=== PATIENT | female | born 1930 | race Caucasian/White ===

== ENCOUNTER 2017-11-02 10:49 | Observation (INO) ==
[2017-11-02] MEDS ORDERED: SALINE FLUSH 10ml SYRINGE IVF PRN (11:04)
--- NOTE | 2017-11-02 11:10 | Emergency Department Report ---
Nausea/Vomiting/Diarrhea HPI - General Chief complaint: Nausea/Vomiting/Diarrhea Stated complaint: v/d lethargic Source: patient Limitations: no limitations - History of Present Illness HPI Narrative: Pt presents with vomiting and diarrhea for about 4 days. Pt is a poor historian who is unable to report any fevers or true complaints or timeline. She denies any abd pain. Her only true complaint is difficulty making it to the restroom and being "tired". Onset (ago): day(s) Associated Abdominal Pain: No - Related Data Home Medications Medication Instructions Recorded Confirmed Benazepril [Lotensin] 40 mg PO DAILY #0 07/13/09 11/02/17 Cymbalta (duloxetine) 60 mg 60 mg PO DAILY 09/29/17 11/02/17 capsule,delayed release magnesium oxide 400 mg tablet 800 mg PO DAILY tab 09/29/17 11/02/17 Acetaminophen [Tylenol] 650 mg PO Q6H PRN 11/02/17 11/02/17 Amlodipine [Norvasc] 10 mg PO DAILY 11/02/17 11/02/17 Ascorbic Acid [Vitamin C] 500 mg PO DAILY 11/02/17 11/02/17 Atorvastatin [Lipitor] 20 mg PO DAILY 11/02/17 11/02/17 Docusate Sodium [Colace] 1 cap PO DAILY PRN 11/02/17 11/02/17 Ferrous Sulfate 325 mg PO DAILY 11/02/17 11/02/17 Gabapentin 300 mg PO QID 11/02/17 11/02/17 Guaifenesin/Dextromethorphan 10 ml PO Q4H PRN 11/02/17 11/02/17 [Guaifenesin Dm Syrup] Hydrocodone/APAP 7.5/325 [[place] 0.5 tab PO 5XD 11/02/17 11/02/17 7.5/325] Hydrocodone/APAP 7.5/325 [[place] 1 tab PO Q6H PRN 11/02/17 11/02/17 7.5/325] Loratadine [Claritin] 10 mg PO DAILY 11/02/17 11/02/17 Potassium Chloride 20 meq PO DAILY 11/02/17 11/02/17 PrednisoLONE EYE DROPS [Pred Mild] 1 drop RIGHT EYE DAILY 11/02/17 11/02/17 Ropinirole [Requip] 0.5 mg PO BID 11/02/17 11/02/17 Allergies Allergy/AdvReac Type Severity Reaction Status Date / Time meperidine Allergy Intermediate HIVES Verified 11/02/17 11:02 Penicillins Allergy Intermediate HIVES Verified 11/02/17 11:02 tetracycline AdvReac Mild STOMACH Verified 11/02/17 11:02 Review of Systems All systems: reviewed and negative except as stated Constitutional: Reports: as per HPI Gastrointestinal: Reports: as per HPI Neurological: Reports: as per HPI PFS Patient Stated Medical History Hypertension Yes Diabetes Mellitus Type 2 Yes Gastrointestinal Bleeding Yes Other GI INGUINAL HERNIA REPAIR Hx Incontinence Yes: DRIBBLING Anemia Yes Osteoarthritis Yes: COMPRESSION FXS Other Musculoskeletal Yes: KYPHOSIS Cellulitis Yes Sepsis Yes Other Infectious Yes: WOUND INFECTION Chemotherapy Yes: UNTIL 1984 Clinic Medical History (Last Updated 10/01/17 @ 12:03 by Sarah Troy APRN) Adenomatous colon polyp (Acute Medical) Diabetes type 2, controlled (Acute Medical) HTN (hypertension) (Acute Medical) History of colon cancer (Acute Medical) Iron deficiency anemia (Acute Medical) Lumbar spondylosis (Acute Medical) Major depressive disorder (Acute Medical) Nodular lymphoma (Acute Medical) Restless leg syndrome (Acute Medical) Surgical History: -left hemicolectomy 2013. -ventral/incisional hernia repair with mesh. Vag Hyst 1969 Family History: Family History (Last Updated 10/01/17 @ 11:57 by Sarah Troy APRN) Mother Parkinson's disease Father Stroke Brother Diabetes Stroke - Social History Smoking status: Never smoker Substance use type: does not use Physical Exam - Limitations Limitations: no limitations - General General appearance: alert, in no apparent distress - Normal Exams: Head:: Normocephalic without trauma Chest/Respirations:: Clear all [place], with good airflow, and symmetry bilaterally Cardiovascular:: Regular rate and rhythm, without murmur or gallop, Pulses 2+ all extremities, capillary refill, <2 seconds all extremities Musculoskeletal:: No tenderness, or deformity noted, good range of motion, all extremities Integumentary:: No rashes Neurological:: Patient is alert, and oriented, cranial nerves, motor/sensory/ cerebellar, exams w/o gross deficits, to observation Psychiatric:: Patient exhibits, appropriate attention, emotion and affect - Abdominal Exam Abdominal exam: Present: soft, hyperactive bowel sounds. Absent: distention, tenderness Nausea/Vomiting/Diarrhea - [facility] Narrative Medical decision making narrative: Labs and CT results reviewed. CT indicates severe enteritis and possible return of neoplasm. In conjunction with lab abnormalities will admit pt to hospitalist. - Differential Diagnosis Likely: traveler's diarrhea, gastroenteritis, clostridium difficile infection, dehydration - Lab Data Attestation: I reviewed the patient's lab results. Result diagrams: 11/02/17 11:17 11/02/17 11:17 - Radiology Data Attestation: I reviewed the patient's radiology results. Disposition Clinical Impression: Enteritis Disposition: 02 To [facility] Condition: Improved Prescriptions: No Action Ropinirole [Requip] 0.5 mg PO BID Hydrocodone/APAP 7.5/325 [[place] 7.5/325] 0.5 tab PO 5XD Amlodipine [Norvasc] 10 mg PO DAILY Ferrous Sulfate 325 mg PO DAILY Potassium Chloride 20 meq PO DAILY Ascorbic Acid [Vitamin C] 500 mg PO DAILY Loratadine [Claritin] 10 mg PO DAILY Docusate Sodium [Colace] 1 cap PO DAILY PRN PRN Reason: Constipation Hydrocodone/APAP 7.5/325 [[place] 7.5/325] 1 tab PO Q6H PRN PRN Reason: Pain Atorvastatin [Lipitor] 20 mg PO DAILY PrednisoLONE EYE DROPS [Pred Mild] 1 drop RIGHT EYE DAILY Benazepril [Lotensin] 40 mg PO DAILY #0 Gabapentin 300 mg PO QID Guaifenesin/Dextromethorphan [Guaifenesin Dm Syrup] 10 ml PO Q4H PRN PRN Reason: Cough Acetaminophen [Tylenol] 650 mg PO Q6H PRN PRN Reason: Pain Cymbalta (duloxetine) 60 mg capsule,delayed release 60 mg PO DAILY magnesium oxide 400 mg tablet 800 mg PO DAILY tab Referrals: Lalo Torres MD [Primary Care Provider] - Time of Disposition: 13:23 - Seen By: midlevel
[2017-11-02] MEDS ORDERED: NS 1,000 ML IV ONE (11:15)
[2017-11-02] MEDS ORDERED: IOHEXOL 300mg/ml 100ml INJECTION ONE (11:52)
[2017-11-02] MEDS ORDERED: SALINE FLUSH 10ml SYRINGE ONE (11:52)
--- NOTE | 2017-11-02 14:16 | History & Physical Report ---
History of Present Illness Date: 11/02/17 Chief complaint: "I just don't feel well." HPI: Pt is an 86 yo female who sees Dr. Lalo Torres and is from [facility] with reported h/o vomiting and diarrhea for approx 4 days. Pt is a poor historian,most info taken from ER note. She c/o a "tight and restless" feeling in her L hip and c/o "I just don't feel well," otherwise, she denies pain, SOA. States she is here "because I keep wetting myself and I'm being obnoxious." Review of Systems All systems PM: 10-point ROS was reviewed, no additional remarkable complaints except (diarrhea, vomiting, discomfort L hip, tired, incontinence) Past Medical History Medical History: Medical History (Last Updated 10/01/17 @ 12:03 by Sarah Troy APRN) Adenomatous colon polyp Diabetes type 2, controlled HTN (hypertension) History of colon cancer Iron deficiency anemia Lumbar spondylosis Major depressive disorder Nodular lymphoma Restless leg syndrome Surgical History: -left hemicolectomy 2013. -ventral/incisional hernia repair with mesh. Vag Hyst 1969. Inguinal hernia repair-1994. Right knee meniscus tear repair-2002. Trabeculectomy right eye- 2002. Laparoscopic ventral herniorrhaphy with incorporation of mesh 2008. Mohs surgery for basal cell carcinoma. Colonoscopy-1995, 1996, 2000, 2001, 2002, 2006 Family History: Family History (Last Updated 10/01/17 @ 11:57 by Sarah Troy APRN) Mother Parkinson's disease Father Stroke Brother Diabetes Stroke Family History: As Above - Social History Smoking status: Never smoker Substance use type: does not use Alcohol intake frequency: does not drink Housing: [facility] Current occupational status: retired Social history: PCP - Dr Torres Medications Home Medications Medication Instructions Recorded Confirmed Type Benazepril [Lotensin] 40 mg PO DAILY #0 07/13/09 11/02/17 History Cymbalta (duloxetine) 60 mg 60 mg PO DAILY 09/29/17 11/02/17 History capsule,delayed release magnesium oxide 400 mg tablet 800 mg PO DAILY tab 09/29/17 11/02/17 History Acetaminophen [Tylenol] 650 mg PO Q6H PRN 11/02/17 11/02/17 History Amlodipine [Norvasc] 10 mg PO DAILY 11/02/17 11/02/17 History Ascorbic Acid [Vitamin C] 500 mg PO DAILY 11/02/17 11/02/17 History Atorvastatin [Lipitor] 20 mg PO DAILY 11/02/17 11/02/17 History Docusate Sodium [Colace] 1 cap PO DAILY PRN 11/02/17 11/02/17 History Ferrous Sulfate 325 mg PO DAILY 11/02/17 11/02/17 History Gabapentin 300 mg PO QID 11/02/17 11/02/17 History Guaifenesin/Dextromethorphan 10 ml PO Q4H PRN 11/02/17 11/02/17 History [Guaifenesin Dm Syrup] Hydrocodone/APAP 7.5/325 [[place] 0.5 tab PO 5XD 11/02/17 11/02/17 History 7.5/325] Hydrocodone/APAP 7.5/325 [[place] 1 tab PO Q6H PRN 11/02/17 11/02/17 History 7.5/325] Loratadine [Claritin] 10 mg PO DAILY 11/02/17 11/02/17 History Potassium Chloride 20 meq PO DAILY 11/02/17 11/02/17 History PrednisoLONE EYE DROPS [Pred Mild] 1 drop RIGHT EYE DAILY 11/02/17 11/02/17 History Ropinirole [Requip] 0.5 mg PO BID 11/02/17 11/02/17 History Allergies Allergy/AdvReac Type Severity Reaction Status Date / Time meperidine Allergy Intermediate HIVES Verified 11/02/17 11:02 Penicillins Allergy Intermediate HIVES Verified 11/02/17 11:02 tetracycline AdvReac Mild STOMACH Verified 11/02/17 11:02 Exam Vital Signs: Temperature 98.8 F 11/02/17 10:50 Pulse Rate 70 11/02/17 12:40 Respiratory Rate 31 H 11/02/17 12:40 Blood Pressure 136/65 11/02/17 12:40 Pulse Oximetry 98 11/02/17 12:40 - Constitutional Present: no acute distress, well nourished, well developed - Routine HEENT Exam Head: Present: normocephalic, atraumatic Eye: Present: EOMI, PERRL ENT: Present: mucous membranes dry, oropharynx clear Comments: chronic ptosis of R eye (pt reports this is from shingles in her eye years ago) - Routine Neck Exam Present: supple. Absent: lymphadenopathy, thyromegaly - Routine Respiratory Exam Present: CTA bilaterally. Absent: wheezes - Routine Cardiovascular Exam Present: RRR, no murmur - Routine Abdominal Exam Present: soft, normoactive bowel sounds. Absent: tenderness, distended - Routine Extremities Exam Present: edema (trace - wearing compression stockings), normal capillary refill - Routine Skin Exam Present: dry, warm - Routine Neurological Exam Present: alert, CN II-XII intact, normal speech - Routine Psychiatric Exam Present: normal affect, cooperative Results - Labs CBC & Chem 7: 11/02/17 11:17 11/02/17 11:17 Labs: Laboratory Tests 11/02/17 11/02/17 11:17 11:29 Total Bilirubin 0.30 Alkaline Phosphatase 75 Total Protein 6.0 L Albumin 3.0 L Globulin 3.0 Plasma Lactate 2.3 H Stool Occult Blood Positive A - Imaging and Cardiology CT scan - abdomen Additional comments: 1. Findings suggestive of severe enteritis. 2. Questionable recurrent neoplasm in the distal small bowel adjacent to the enterocolonic anastomotic site. 3. Extensive atherosclerotic disease. Assessment and Plan Assessment and Plan: Assessment Enteritis with positive occult blood CT abd/pelvis suggests questionable recurrent neoplasm in distal small bowel adjacent to the enterocolonic anastomotic site Leukocytosis Elevated lactate 2.3 Anemia Adenomatous colon polyp Diabetes type 2, controlled HTN History of colon cancer Iron deficiency anemia Lumbar spondylosis Major depressive disorder H/o lymphoma Restless leg syndrome Plan Admit, OBS. Labs and CT reviewed from ER. Repeat lactate ordered. Labs in am to follow blood counts, renal function and electrolytes. Supportive tx for enteritis with IVF's, antiemetics. NS 1L bolused in ER. Continue at 100ml/hr. Clear liquid diet Accuchecks and SSI PRN. Continue chronic [place] and gabapentin for pain and Requip for RLS. Hold Mg given her diarrhea. Hold home BP meds for now. SCD's for VTE ppx DNR Dr Torres - PCP DVT Prophylaxis: SCD's Resuscitation Status: Do Not Resuscitate - Physician Narrative Physician: Norman Padilla MD Narrative: Date: 11/02/17 Time: 4 Have independently interviewed and examined pt. Chart reviewed. Case discussed with ED provider and my PA. Care plan developed with my supervision; agree with above. Presents to ED secondary to loose stools over past 5 days or so. No nausea. Appetite with decrease. Some crampy ab pain at times. Can't say she is having more chills than she typically does. Breathing well. No chest pain. Lungs: clear CV: regular AB: soft nt/ND BS present EXT: no edema MSE: awake alert Plan: OBS for supportive care and monitoring - NOT seeing convincing evidence for sepsis at this time. IVF to maintain hydration. Clear liquids. Hold on antihypertensive. Questran prn loose stools. Monitor lab. SCD. DNR. Care to return to Dr Torres at time of discharge from [facility]. Hospital Course Summary Disclaimer: The visit summary below is not to be considered part of the above Progress Note. Hospital Course: 11/02/17 Admit, OBS. Labs and CT reviewed from ER. Repeat lactate ordered. Labs in am to follow blood counts, renal function and electrolytes. Supportive tx for enteritis with IVF's, antiemetics. NS 1L bolused in ER. Continue at 100ml/hr. Clear liquid diet Accuchecks and SSI PRN. Continue chronic [place] and gabapentin for pain and Requip for RLS. Hold Mg given her diarrhea. Hold home BP meds for now. SCD's for VTE ppx DNR Dr Torres - PCP
[2017-11-02 14:21] VITALS: BMI 21.8
[2017-11-02] MEDS ORDERED: PROCHLORPERAZINE 10 MG/2 ML INJECTION IVP PRN (14:29)
[2017-11-02] MEDS ORDERED: ACETAMINOPHEN 325 MG TABLET PO PRN (14:39)
[2017-11-02] MEDS: NS 1,000 ML IV SCH (14:47)
[2017-11-02] MEDS ORDERED: INSULIN ASPART 100unit/ml INJECTION SQ PRN (14:47)
[2017-11-02] MEDS: HYDROCODONE/APAP 7.5 MG/325 MG TABLET PO PRN (15:01)
[2017-11-02] MEDS: HYDROCODONE/APAP 7.5 MG/325 MG TABLET PO SCH ×3 (15:09→21:15)
[2017-11-02] MEDS ORDERED: CHOLESTYRAMINE LIGHT 4 G PACKET PO PRN (17:00)
[2017-11-02] MEDS: GABAPENTIN 300 MG CAPSULE PO SCH ×2 (18:01→21:15)
[2017-11-02] MEDS: ROPINIROLE 0.5 MG TABLET PO SCH (23:22)
[2017-11-02] MEDS ORDERED: DEXTROSE 50% SYRINGE 50ml (1 AMP) IVP ONE (23:42)
[2017-11-03] MEDS: NS 1,000 ML IV SCH (01:06)
[2017-11-03 06:02] VITALS: RESP 16
[2017-11-03] MEDS: HYDROCODONE/APAP 7.5 MG/325 MG TABLET PO PRN (06:02)
[2017-11-03] MEDS ORDERED: FALL RISK - PHARMACY CONSULT MC ONE (06:33)
--- NOTE | 2017-11-03 07:38 | CT Scan Report ---
Indication: vomiting diarrhea, hx colon cancer, hemicolectomy PROCEDURE: CT abdomen pelvis w con: Encounter: Initial Comparison: CT thoracic spine dated June 14, 2014 Technique: Axial CT images were performed through the abdomen and pelvis after the administration of intravenous contrast. Coronal and sagittal two-dimensional reformats. Automated Exposure Control and Iterative Reconstruction dose reducing techniques were utilized. Contrast: Omnipaque 300 89 mL Findings: Atelectasis or scarring in both lower lobes. Heart is enlarged. Small left hepatic cyst but no enhancing liver lesions or bile duct dilatation. The gallbladder is unremarkable. The spleen, mildly atrophic pancreas and left adrenal gland are normal. 1.7 cm right adrenal nodule, stable from 2015 probably representing a benign adenoma. Right renal cortical loss and scarring. Left kidney is unremarkable. Diffuse arterial calcifications. Bladder is normal. Uterus is absent. Rectum is distended with stool. Prior hemicolectomy. There are multiple thickened bowel loops in the left pelvis. No focal transition point identified. There is also small bowel thickening near the colonic anastomosis in the right lower abdomen. Old healed right inferior pubic ramus fracture. Degenerative change and scoliosis in the spine. Multiple thoracic and lumbar compression fractures. Impression: Thick-walled small bowel in the pelvis could be due to infectious or inflammatory gastroenteritis. No clear evidence of obstruction. Bowel wall thickening near the colonic anastomosis could be due to inflammation or possibly recurrent tumor. There is a preliminary report by [employer]. .
[2017-11-03 08:41] VITALS: BP 143/67; PULSE 74; TEMP 96.1; O2SAT 96
[2017-11-03] MEDS ORDERED: DULOXETINE 60 MG CAPSULE PO SCH (09:00)
[2017-11-03] MEDS ORDERED: PREDNISOLONE 0.12% RIGHT EYE SCH (09:00)
[2017-11-03] MEDS: GABAPENTIN 300 MG CAPSULE PO SCH (09:16)
[2017-11-03] MEDS: HYDROCODONE/APAP 7.5 MG/325 MG TABLET PO SCH (09:17)
[2017-11-03] MEDS: ROPINIROLE 0.5 MG TABLET PO SCH (09:19)
--- NOTE | 2017-11-03 11:12 | Progress Note ---
- Date 11/03/17 Subjective: F/U: Enteritis Doing better this am. Appetite improving-feels did well with breakfast. No nausea. Notes 1 spot of ab pain. Not having urgency for stools-stool passed as loose, but not uncontrollable. Denies anal irritation from loose stools. No f/ c. Breathing well. No chest pressure or pain. Objective Vital signs: Temperature 96.1 F L 11/03/17 08:00 Pulse Rate 74 11/03/17 08:00 Respiratory Rate 16 11/03/17 06:02 Blood Pressure 143/67 H 11/03/17 08:00 Pulse Oximetry 96 11/03/17 08:00 Height/Weight/BMI: Height 1.65 m Weight 59.6 kg Body Mass Index 21.8 - Constitutional Present: no acute distress, well nourished, well developed, average body habitus , cooperative - Routine HEENT Exam Head: Present: normocephalic, atraumatic Eye: Present: EOMI ENT: Present: mucous membranes moist - Routine Respiratory Exam Present: CTA bilaterally. Absent: rales, respiratory distress, rhonchi, stridor , wheezes, crackles - Routine Cardiovascular Exam Present: RRR, no murmur - Routine Abdominal Exam Present: soft, normoactive bowel sounds, non distended, non tender. Absent: guarding - Routine Extremities Exam Present: no edema. Absent: cyanosis, clubbing Comments: SCD in place - Routine Musculoskeletal Exam Musculoskeletal: Present: no clubbing or cyanosis - Routine Skin Exam Present: dry, warm - Routine Neurological Exam Present: alert, oriented X3, CN II-XII intact, moving all extremities, vision grossly intact, hearing grossly intact, normal speech. Absent: motor deficit, altered mental status - Routine Psychiatric Exam Present: normal affect, normal thought process, cooperative Results - Labs CBC & Chem 7: 11/03/17 04:17 11/03/17 04:17 Assessment and Plan (1) Enteritis Current visit: Yes Status: Acute Assessment and Plan: Assessment Enteritis with positive occult blood CT abd/pelvis suggests questionable recurrent neoplasm in distal small bowel adjacent to the enterocolonic anastomotic site Leukocytosis Elevated lactate 2.3 Anemia Adenomatous colon polyp Diabetes type 2, controlled HTN History of colon cancer Iron deficiency anemia Lumbar spondylosis Major depressive disorder H/o lymphoma Restless leg syndrome Plan Clinically improving. WBC normal. Lab and vitals stable. Stool frequency decreased. Eating well. Will discharge to [facility] in stable condition. Culturelle 1 po TID for 1 week secondary to enteritis. Questran 1 package q6 hours prn loose stool. Continue prior medications and treatments. F/U with Dr Torres in 1 week for evaluation. Would recommend repeating CT ab/pelvis in 1 month secondary to abnormality at anastomotic site to exclude tumor recurrence. See orders for details. Case discussed with CM. Time spent with patient care and discharge greater than 30 minutes. DVT Prophylaxis: SCD's Resuscitation Status: Do Not Resuscitate - Physician Narrative Physician: Norman Padilla MD Narrative: Date: 11/03/17 Time: 1109 Hospital Course Summary Disclaimer: The visit summary below is not to be considered part of the above Progress Note. Hospital Course: 11/02/17 Admit, OBS. Labs and CT reviewed from ER. Repeat lactate ordered. Labs in am to follow blood counts, renal function and electrolytes. Supportive tx for enteritis with IVF's, antiemetics. NS 1L bolused in ER. Continue at 100ml/hr. Clear liquid diet Accuchecks and SSI PRN. Continue chronic [place] and gabapentin for pain and Requip for RLS. Hold Mg given her diarrhea. Hold home BP meds for now. SCD's for VTE ppx DNR Dr Torres - PCP 11/03/17 Clinically improving. WBC normal. Lab and vitals stable. Stool frequency decreased. Eating well. Will discharge to [facility] in stable condition. Culturelle 1 po TID for 1 week secondary to enteritis. Questran 1 package q6 hours prn loose stool. Continue prior medications and treatments. F/U with Dr Torres in 1 week for evaluation. Would recommend repeating CT ab/pelvis in 1 month secondary to abnormality at anastomotic site to exclude tumor recurrence. See orders for details.
--- NOTE | 2017-11-03 11:25 | Extended Care Facility Orders ---
Admission Orders Admit to:: [facility] Allergies/Adverse Reactions: Allergies meperidine Allergy (Intermediate, Verified 11/02/17 11:02) HIVES Penicillins Allergy (Intermediate, Verified 11/02/17 11:02) HIVES tetracycline Adverse Reaction (Mild, Verified 11/02/17 11:02) STOMACH Admitting Diagnosis: Vomiting/diarrhea - Enteritis Admitting Physician: Norman Padilla MD Attending Physician: Dr Torres Code Status: Do Not Resuscitate Anticiapted Length of Stay: greater than 30 days Rehab Potential: fair Rehab Prognosis: fair Diet: Regular consistency diet with no concentrated sweets/added salt. May use Facility Protocol or Standing Orders: Yes May have flu vaccine: Yes Shelter Certification: I certify that SNF services are required to be given on an Inpatient basis because of the patients need for shelter care on a continuing basis for the condition(s) for which he/she received inpatient hospital services prior to his/her transfer to the SNF. SNF inpatient care is necessary for the following reasons Indication for Shelter: Not Applicable - Additional Information In Event of Arrest: Do Not Start CPR Resident is Aware of Diagnosis: Yes Referrals: Lalo Torres MD [Primary Care Provider] - 1 Week (Hopsital follow up for enteritis - recommend repeating CT ab/pelvis in 1 month secondary to abnormality at anastomotic site to exclude tumor recurrence. ) Additional Orders: F/U with Dr Torres in 1 week. Continue all prior medications/treatments for before admission.
--- NOTE | 2017-11-03 11:38 | Discharge Summary ---
Discharge Information Date of admission: 11/02/17 13:23 Anticipated date of discharge: 11/03/17 Attending Physician: Norman Padilla MD Primary care physician: Lalo Torres MD Consults: PT/OT - Discharge Diagnosis (1) Enteritis Status: Acute Discharge diagnosis Enteritis Associated conditions and complication Positive occult blood secondary to enteritis - no evidence for significant GI bleed CT ab/pelvis suggests questionable recurrent neoplasm in distal small bowel adjacent to the enterocolonic anastomotic site Repeat CT AB/Pelvis in 1 month recommended Leukocytosis - resolved Elevated lactate 2.3 No evidence for sepsis syndrome Anemia Adenomatous colon polyp Diabetes type 2, controlled HTN Iron deficiency anemia Lumbar spondylosis Major depressive disorder Restless leg syndrome History of colon cancer H/o lymphoma - Laboratory Labs: Admit Lab 11/02/17 11:17 WBC 11.5 H Hgb 9.5 L Hct 30.8 L MCV 68.4 L Plt Count 257 Neutrophils % (Manual) 72.0 H Band Neutrophils % 3.0 Lymphocytes % (Manual) 15.0 L Monocytes % (Manual) 6.0 Eosinophils % (Manual) 4.0 Admit Lab 11/02/17 11:17 Sodium 138 Potassium 4.5 Chloride 100 Carbon Dioxide 27 Anion Gap 11 BUN 15.0 Creatinine 0.6 L GFR Calculation 95 BUN/Creatinine Ratio 25 Glucose 181 H Calculated Osmolality 272 Calcium 8.3 L Total Bilirubin 0.30 AST 18 ALT 10 Alkaline Phosphatase 75 Total Protein 6.0 L Albumin 3.0 L Globulin 3.0 Albumin/Globulin Ratio 1.0 L Plasma Lactate 2.3 H 11/03/17 04:17 11/03/17 04:17 - Radiology Radiology: Date of Exam: 11/02/17 Type of Exam: CT abdomen pelvis w con Findings: Atelectasis or scarring in both lower lobes. Heart is enlarged. Small left hepatic cyst but no enhancing liver lesions or bile duct dilatation. The gallbladder is unremarkable. The spleen, mildly atrophic pancreas and left adrenal gland are normal. 1.7 cm right adrenal nodule, stable from 2014 probably representing a benign adenoma. Right renal cortical loss and scarring. Left kidney is unremarkable. Diffuse arterial calcifications. Bladder is normal. Uterus is absent. Rectum is distended with stool. Prior hemicolectomy. There are multiple thickened bowel loops in the left pelvis. No focal transition point identified. There is also small bowel thickening near the colonic anastomosis in the right lower abdomen. Old healed right inferior pubic ramus fracture. Degenerative change and scoliosis in the spine. Multiple thoracic and lumbar compression fractures. Impression: Thick-walled small bowel in the pelvis could be due to infectious or inflammatory gastroenteritis. No clear evidence of obstruction. Bowel wall thickening near the colonic anastomosis could be due to inflammation or possibly recurrent tumor. History of Present Illness HPI: Pt is an 86 yo female who sees Dr. Lalo Torres and is from [facility] with reported h/o vomiting and diarrhea for approx 4 days. Pt is a poor historian,most info taken from ER note. She c/o a "tight and restless" feeling in her L hip and c/o "I just don't feel well," otherwise, she denies pain, SOA. States she is here "because I keep wetting myself and I'm being obnoxious." For complete details of the H&P refer to that document. Objective Vital signs: Temperature 96.1 F L 11/03/17 08:00 Pulse Rate 74 11/03/17 08:00 Respiratory Rate 16 11/03/17 06:02 Blood Pressure 143/67 H 11/03/17 08:00 Pulse Oximetry 96 11/03/17 08:00 Height/Weight/BMI: Height 1.65 m Weight 59.6 kg Body Mass Index 21.8 Hospital Course This is a general summary of the patient's hospital course. For more details refer to the complete medical record. Hospital course: 11/02/17 Admit, OBS. Labs and CT reviewed from ER. Repeat lactate ordered. Labs in am to follow blood counts, renal function and electrolytes. Supportive tx for enteritis with IVF's, antiemetics. NS 1L bolused in ER. Continue at 100ml/hr. Clear liquid diet Accuchecks and SSI PRN. Continue chronic [place] and gabapentin for pain and Requip for RLS. Hold Mg given her diarrhea. Hold home BP meds for now. SCD's for VTE ppx DNR Dr Torres - PCP 11/03/17 Clinically improving. WBC normal. Lab and vitals stable. Stool frequency decreased. Eating well. Will discharge to [facility] in stable condition. Culturelle 1 po TID for 1 week secondary to enteritis. Questran 1 package q6 hours prn loose stool. Continue prior medications and treatments. F/U with Dr Torres in 1 week for evaluation. Would recommend repeating CT ab/pelvis in 1 month secondary to abnormality at anastomotic site to exclude tumor recurrence. See orders for details. Time spent with patient: discharge greater than 30 minutes Resuscitation Status: Do Not Resuscitate Discharge Plan - Discharge Disposition Discharge Date: 11/03/17 Disposition: 04 To [facility] Home/Facility *Condition: Improved Reason For Visit (Visit label in EMR): vomiting/diarrhea - Discharge Medications *Discharge Medications: New Cholestyramine/Aspartame [Cholestyramine Light Packet] 4 g PO Q6H PRN #10 powd.pack PRN Reason: Diarrhea Lactobacillus [Culturelle] 1 cap PO AC #21 cap Continue Ropinirole [Requip] 0.5 mg PO BID Amlodipine [Norvasc] 10 mg PO DAILY Ferrous Sulfate 325 mg PO DAILY Potassium Chloride 20 meq PO DAILY Ascorbic Acid [Vitamin C] 500 mg PO DAILY Loratadine [Claritin] 10 mg PO DAILY Docusate Sodium [Colace] 1 cap PO DAILY PRN PRN Reason: Constipation Atorvastatin [Lipitor] 20 mg PO DAILY PrednisoLONE EYE DROPS [Pred Mild] 1 drop RIGHT EYE DAILY Hydrocodone/APAP 7.5/325 [[place] 7.5/325] 0.5 tab PO 5XD #30 tab Benazepril [Lotensin] 40 mg PO DAILY #0 Gabapentin 300 mg PO QID Guaifenesin/Dextromethorphan [Guaifenesin Dm Syrup] 10 ml PO Q4H PRN PRN Reason: Cough Acetaminophen [Tylenol] 650 mg PO Q6H PRN PRN Reason: Pain Hydrocodone/APAP 7.5/325 [[place] 7.5/325] 1 tab PO Q6H PRN #30 tab PRN Reason: Pain Cymbalta (duloxetine) 60 mg capsule,delayed release 60 mg PO DAILY magnesium oxide 400 mg tablet 800 mg PO DAILY tab - Discharge Packet/Instructions *Diet: Regular consistency with no added salt/concentrated sweets *Activity: As tolerated *Pain Management/Treatment: Continue prior home pain medications *Wound Care: N/A Additional Instructions: Use Culturelle 1 capsule before meals for 1 week due to loose stools. May use Questran 1 package every 6 hours as needed for loose stools. *Expected Signs/Symptoms: Improvement of bowel function. *Notify Physician if: Temp >100.4. Increased loose stool, nausea. *During Business Hours Contact: Nursing staff at *After Business Hours Contact: Nursing staff at - Referrals/Follow Up *Referrals/Follow Up: Lalo Torres MD [Primary Care Provider] - 1 Week ([facility]ops[facility] follow up for enteritis - recommend repeating CT ab/pelvis in 1 month secondary to abnormality at anastomotic site to exclude tumor recurrence. ) - Patient Handouts - Dismissal Complete Discharge Instructions are:: Complete Physician Narrative - Narrative Physician: Norman Padilla MD Attestation Narrative: Date: 11/03/17 Time: 1134 I have independently interviewed and examined patient prior to discharge. See my progress note for details. Medically stable for discharge to [facility].
== END 2017-11-03 12:45 ==
LOC: EDHOLD 10:49 → ED 10:49 → MED 14:10
PROVIDERS: ADMIT Hospitalist; ATTEND Hospitalist

== ENCOUNTER 2017-12-05 18:08 | Inpatient (IN) ==
--- NOTE | 2017-12-05 18:32 | Emergency Department Report ---
Asthma HPI - General Stated Complaint: Possible Aspiration Time Seen by Provider: 12/05/17 18:25 Source: patient, EMS, RN notes reviewed, old records reviewed Mode of arrival: EMS Limitations: other - History of Present Illness HPI Narrative: 86yo woman presents to the ER by EMS for evaluation of suspected aspiration. Pt lost her A/C at her assisted living facility today; she has not felt well all day. At one time, NRSing staff checked on the pt and found her BG to be in the 40's; was given PO glucose with good improvement. At some point later, pt was found again and appeared to have aspirated. MD complaint: shortness of breath Onset (ago): hour(s) Severity: moderate Associated symptoms: other (wet cough) - Related Data Home Medications Medication Instructions Recorded Confirmed Acetaminophen 650 mg PO Q6H PRN 12/05/17 12/05/17 Amlodipine [Norvasc] 10 mg PO DAILY 12/05/17 12/05/17 Ascorbate Calcium [Vitamin C] 500 mg PO DAILY 12/05/17 12/05/17 Atorvastatin [Lipitor] 20 mg PO 1700 12/05/17 12/05/17 Benazepril [Lotensin] 40 mg PO DAILY 12/05/17 12/05/17 Cholestyramine (with Sugar) 1 pack PO Q4H PRN 12/05/17 12/05/17 [Cholestyramine Packet] Docusate Sodium [Colace] 100 mg PO DAILY 12/05/17 12/05/17 Duloxetine [Cymbalta] 90 mg PO DAILY 12/05/17 12/05/17 Ferrous Sulfate 325 mg PO DAILY 12/05/17 12/05/17 Gabapentin [Neurontin] 300 mg PO QID 12/05/17 12/05/17 Guaifenesin/Dextromethorphan 10 ml PO Q4H PRN 12/05/17 12/05/17 [Diabetic Tussin Dm Max-Str Liq] Hydrocodone/APAP 7.5/325 [Wann 0.5 tab PO 5XD 12/05/17 12/05/17 7.5/325] Hydrocodone/APAP 7.5/325 [Wann 1 tab PO Q6H PRN 12/05/17 12/05/17 7.5/325] Loperamide [Imodium] 2 mg PO QID PRN 12/05/17 12/05/17 Loratadine Odt [Claritin Redi-Tab] 10 mg PO DAILY 12/05/17 12/05/17 Magnesium Oxide [Magnesium] 400 mg PO DAILY 12/05/17 12/05/17 Potassium Chloride 20 meq PO DAILY 12/05/17 12/05/17 PrednisoLONE EYE DROPS [Pred Mild] 1 drop RIGHT EYE DAILY 12/05/17 12/05/17 Ropinirole [Requip] 0.5 mg PO BID 12/05/17 12/05/17 Allergies Allergy/AdvReac Type Severity Reaction Status Date / Time meperidine Allergy Intermediate HIVES Verified 12/05/17 18:26 Penicillins Allergy Intermediate HIVES Verified 12/05/17 18:26 tetracycline AdvReac Mild STOMACH Verified 12/05/17 18:26 Review of Systems Limitations: ROS unobtainable due to patient's medical condition PFS Patient Stated Medical History Hypertension Yes Diabetes Mellitus Type 2 Yes Gastrointestinal Bleeding Yes Other GI Yes: INGUINAL HERNIA REPAIR Hx Incontinence Yes: DRIBBLING Anemia Yes Osteoarthritis Yes: COMPRESSION FXS Other Musculoskeletal Yes: KYPHOSIS Cellulitis Yes Sepsis Yes Other Infectious Yes: WOUND INFECTION Chemotherapy Yes: UNTIL 1984 [facility] Medical History (Last Updated 10/01/17 @ 12:03 by Sarah Troy APRN) Adenomatous colon polyp (Acute Medical) Diabetes type 2, controlled (Acute Medical) HTN (hypertension) (Acute Medical) History of colon cancer (Acute Medical) Iron deficiency anemia (Acute Medical) Lumbar spondylosis (Acute Medical) Major depressive disorder (Acute Medical) Nodular lymphoma (Acute Medical) Restless leg syndrome (Acute Medical) Surgical History: -left hemicolectomy 2013. -ventral/incisional hernia repair with mesh. Vag Hyst 1969. Inguinal hernia repair-1994. Right knee meniscus tear repair-2002. Trabeculectomy right eye- 2002. Laparoscopic ventral herniorrhaphy with incorporation of mesh 2008. Mohs surgery for basal cell carcinoma. Colonoscopy-1995, 1996, 2000, 2001, 2002, 2006 Family History: Family History (Last Updated 10/01/17 @ 11:57 by Sarah Troy APRN) Mother Parkinson's disease Father Stroke Brother Diabetes Stroke - Social History Smoking status: Never smoker Substance use type: does not use Alcohol intake frequency: does not drink [facility] Current occupational status: retired Current residence: [place] Physical Exam - Limitations Limitations: other - General General appearance: alert, in no apparent distress, cachectic - Head Head exam: atraumatic, normocephalic, normal inspection - Eye Eye exam: Present: normal appearance, PERRL, EOMI. Absent: scleral icterus - ENT ENT exam: Present: normal exam, normal oropharynx, mucous membranes moist, normal external ear exam - Neck Neck exam: Present: normal inspection, full ROM, trachea midline. Absent: tenderness, lymphadenopathy - Chest Chest inspection: Present: normal inspection, symmetric chest wall rise. Absent : tenderness, rash - Respiratory Respiratory exam: Present: wheezes, crackles (Throughout right lung [place]). Absent: normal lung sounds bilaterally, respiratory distress, stridor, prolonged expiratory phase - Cardiovascular Cardiovascular exam: Present: regular rate, normal rhythm, normal heart sounds. Absent: rubs, gallop, clicks - Abdominal Exam Abdominal exam: Present: soft, normal bowel sounds. Absent: distention, tenderness, guarding, rebound, rigidity - Extremities Exam Extremities exam: Present: full ROM, normal capillary refill, pedal edema. Absent: normal inspection, tenderness - Skin Skin exam: Present: warm, dry, intact. Absent: rash - Neurological Exam Neurological exam: Present: alert, CN II-XII intact, reflexes normal. Absent: oriented X3 - Psychiatric Psychiatric exam: Present: flat affect Course - Consultations Consultation #1: Lan Telemed: Will admit pt to CCU for empiric tx of aspiration PNA and HCAP. Time: 20:56 Vital Signs Temperature 98.4 F 12/05/17 18:10 Pulse Rate 110 H 12/05/17 18:10 Respiratory Rate 22 12/05/17 18:10 Blood Pressure 115/76 12/05/17 18:10 Pulse Oximetry 97 12/05/17 18:10 Temperature 98.4 F 12/05/17 18:10 Pulse Rate 114 H 12/05/17 21:00 Respiratory Rate 24 12/05/17 21:00 Blood Pressure 103/64 12/05/17 21:00 Pulse Oximetry 95 12/05/17 21:00 Dyspnea - MDM Narrative Medical decision making narrative: Pt accepted for admission to CCU for aspiration PNA and HCAP with hypoxia. Pt does not have a dx of dementia, but again, tonight, pt is not able to give a coherent hx. She believes that she is here after a fall, that it is in the 1980s , and cannot say where she is. - Differential Diagnosis Differential diagnosis: Likely: Acute exacerbation, Pneumonia, COPD exacerbation , Pulmonary edema systolic, Pulmonary edema dystolic, ARDS (Aspiration) - Medical Records Attestation: I reviewed the patient's medical records. - Lab Data Attestation: I reviewed the patient's lab results. Result diagrams: 12/05/17 19:17 12/05/17 19:17 Lab Results 12/05/17 12/05/17 12/05/17 Range/Units 18:33 19:17 19:17 WBC 16.8 H (4.5-11.0) T/MM3 RBC 5.20 (4.00-5.20) M/MM3 Hgb 10.9 L (12-16) GM/DL Hct 35.7 L (36-46) % MCV 68.7 L (80-100) UM3 MCH 21.0 L (26-34) UUG MCHC 30.5 L (31-37) GM/DL RDW Std Deviation 53.5 H (36.9-50.2) FL Plt Count 429 H D (130-400) T/MM3 MPV 8.9 L (9.4-12.4) UM3 Immature Gran % (Auto) Not performed Neut % (Auto) Not performed Lymph % (Auto) Not performed Love % (Auto) Not performed Eos % (Auto) Not performed Baso % (Auto) Not performed Neut # (Auto) Not performed Lymph # (Auto) Not performed Love # (Auto) Not performed Eos # (Auto) Not performed Baso # (Auto) Not performed Abs Immat Gran (auto) Not performed Neutrophils % (Manual) 94.0 H (33-66) % Band Neutrophils % 1.0 (0-6) % Lymphocytes % (Manual) 4.0 L (23-45) % Monocytes % (Manual) 1.0 (0-9.0) % Neutrophils # (Manual) 15.8 H (1.8-7.7) T/MM3 Band Neutrophils # 0.2 T/MM3 Lymphocytes # (Manual) 0.7 L (1-4.8) T/MM3 Monocytes # (Manual) 0.2 (0-0.8) T/MM3 Poikilocytosis 1+ Anisocytosis 1+ Microcytosis 1+ RBC Morph Comment Abnormal Turbidity < 20 (0-20) Sodium 140 (136-146) MEQ/L Potassium 4.7 (3.6-5) MEQ/L Chloride 100 (98-107) MEQ/L Carbon Dioxide 30 (22-30) MEQ/L Anion Gap 10 (5-15) meq/L BUN 19.0 H (7-17) MG/DL Creatinine 0.7 (0.7-1.2) mg/dL GFR Calculation 80 BUN/Creatinine Ratio 27 H (6-26) RATIO Glucose 93 (65-110) MG/DL Glucometer 96 (65-110) mg/dL Calculated Osmolality 271 (261-280) MOSM/KG Calcium 8.6 (8.4-10.2) MG/DL Icterus Index < 2 (0-7) NT-Pro-B Natriuret Pep 639 H (0-175) pg/mL Plasma Lactate 1.7 (0.6-2.2) MMOL/L Specimen Hemolysis < 15 (0-25) Ur Collection Type Urine Color (YELLOW) Urine Clarity Urine pH (5.0-8.0) Ur Specific [place] (1.015-1.025) Urine Protein (NEGATIVE) Urine Glucose (UA) (NEGATIVE) Urine Ketones (NEGATIVE) Urine Occult Blood (NEGATIVE) Urine Nitrate (NEGATIVE) Urine Bilirubin (NEGATIVE) Urine Urobilinogen (NORMAL) EU/DL Ur Leukocyte Esterase (NEGATIVE) 12/05/17 Range/Units 20:54 WBC (4.5-11.0) T/MM3 RBC (4.00-5.20) M/MM3 Hgb (12-16) GM/DL Hct (36-46) % MCV (80-100) UM3 MCH (26-34) UUG MCHC (31-37) GM/DL RDW Std Deviation (36.9-50.2) FL Plt Count (130-400) T/MM3 MPV (9.4-12.4) UM3 Immature Gran % (Auto) Neut % (Auto) Lymph % (Auto) Love % (Auto) Eos % (Auto) Baso % (Auto) Neut # (Auto) Lymph # (Auto) Love # (Auto) Eos # (Auto) Baso # (Auto) Abs Immat Gran (auto) Neutrophils % (Manual) (33-66) % Band Neutrophils % (0-6) % Lymphocytes % (Manual) (23-45) % Monocytes % (Manual) (0-9.0) % Neutrophils # (Manual) (1.8-7.7) T/MM3 Band Neutrophils # T/MM3 Lymphocytes # (Manual) (1-4.8) T/MM3 Monocytes # (Manual) (0-0.8) T/MM3 Poikilocytosis Anisocytosis Microcytosis RBC Morph Comment Turbidity (0-20) Sodium (136-146) MEQ/L Potassium (3.6-5) MEQ/L Chloride (98-107) MEQ/L Carbon Dioxide (22-30) MEQ/L Anion Gap (5-15) meq/L BUN (7-17) MG/DL Creatinine (0.7-1.2) mg/dL GFR Calculation BUN/Creatinine Ratio (6-26) RATIO Glucose (65-110) MG/DL Glucometer (65-110) mg/dL Calculated Osmolality (261-280) MOSM/KG Calcium (8.4-10.2) MG/DL Icterus Index (0-7) NT-Pro-B Natriuret Pep (0-175) pg/mL Plasma Lactate (0.6-2.2) MMOL/L Specimen Hemolysis (0-25) Ur Collection Type Urine, cath monteiro Urine Color Yellow (YELLOW) Urine Clarity Cloudy Urine pH 6.0 (5.0-8.0) Ur Specific [place] 1.015 (1.015-1.025) Urine Protein Trace A (NEGATIVE) Urine Glucose (UA) Negative (NEGATIVE) Urine Ketones 1+ A (NEGATIVE) Urine Occult Blood Negative (NEGATIVE) Urine Nitrate Negative (NEGATIVE) Urine Bilirubin Negative (NEGATIVE) Urine Urobilinogen 0.2 (NORMAL) EU/DL Ur Leukocyte Esterase 2+ A (NEGATIVE) - Radiology Data Attestation: I reviewed the patient's radiology results. KUB: Persistent left hemidiaphragm elevation. New RLL effusion. Increased perihilar haziness along right mediastinum. Disposition Clinical Impression: HCAP (healthcare-associated pneumonia), Hypoxia Aspiration pneumonia Qualifiers: Aspiration pneumonia type: due to vomit Laterality: right Lung location: lower lobe of lung Qualified Code(s): J69.0 - Pneumonitis due to inhalation of food and vomit Disposition: 02 To [facility] Acute Care Print Language: Bolivian Condition: Improved Prescriptions: No Action Cholestyramine (with Sugar) [Cholestyramine Packet] 1 pack PO Q4H PRN PRN Reason: Diarrhea Guaifenesin/Dextromethorphan [Diabetic Tussin Dm Max-Str Liq] 10 ml PO Q4H PRN PRN Reason: Cough Acetaminophen 650 mg PO Q6H PRN PRN Reason: Pain Hydrocodone/APAP 7.5/325 [W[place] 7.5/325] 1 tab PO Q6H PRN PRN Reason: Pain Atorvastatin [Lipitor] 20 mg PO 1700 PrednisoLONE EYE DROPS [Pred Mild] 1 drop RIGHT EYE DAILY Loratadine Odt [Claritin Redi-Tab] 10 mg PO DAILY Duloxetine [Cymbalta] 90 mg PO DAILY Ropinirole [Requip] 0.5 mg PO BID Hydrocodone/APAP 7.5/325 [[place] 7.5/325] 0.5 tab PO 5XD Amlodipine [Norvasc] 10 mg PO DAILY Gabapentin [Neurontin] 300 mg PO QID Potassium Chloride 20 meq PO DAILY Magnesium Oxide [Magnesium] 400 mg PO DAILY Benazepril [Lotensin] 40 mg PO DAILY Ascorbate Calcium [Vitamin C] 500 mg PO DAILY Loperamide [Imodium] 2 mg PO QID PRN PRN Reason: Diarrhea Docusate Sodium [Colace] 100 mg PO DAILY Ferrous Sulfate 325 mg PO DAILY Referrals: Lalo Torres MD [Primary Care Provider] - Time of Disposition: 21:20 - Seen By: physician
[2017-12-05] MEDS ORDERED: ALBUTEROL 2.5mg/3ml (0.083%) NEB AEROSOL ONE (18:34)
[2017-12-05] MEDS ORDERED: CEFEPIME 1 GM in NS 100 ML IV ONE (18:36)
[2017-12-05] MEDS ORDERED: NS FLUSH BAG 500ml IV PRN (18:43)
[2017-12-05] MEDS ORDERED: ONDANSETRON 4 MG/2 ML INJECTION IVP ONE ×2 (18:57→22:44)
[2017-12-05] MEDS: SALINE FLUSH 10ml SYRINGE IVF PRN ×2 (19:04→22:48)
[2017-12-05] MEDS ORDERED: VANCOMYCIN - PHARMACY CONSULT MC ONE (22:04)
[2017-12-05] MEDS ORDERED: ALBUTEROL 2.5mg/3ml (0.083%) NEB IPPB PRN (22:04)
[2017-12-05] MEDS ORDERED: DEXTROSE 50% SYRINGE 50ml (1 AMP) IVP PRN (22:04)
[2017-12-05] MEDS: NS 1,000 ML IV SCH (22:22)
[2017-12-05] MEDS: MEROPENEM 500 MG in NS 50 ML IV SCH (22:23)
[2017-12-05] MEDS: INSULIN ASPART 100unit/ml INJECTION SQ PRN (22:34)
[2017-12-05] MEDS ORDERED: METOCLOPRAMIDE 10mg/2ml INJECTION IVP PRN (22:44)
[2017-12-05] MEDS ORDERED: MORPHINE SULFATE 2mg INJECTION IVP PRN (22:44)
[2017-12-05] MEDS ORDERED: ONDANSETRON 4 MG/2 ML INJECTION IVP PRN (22:55)
[2017-12-06] MEDS: MORPHINE SULFATE 2mg INJECTION IVP PRN ×7 (00:45→19:40)
[2017-12-06] MEDS: MEROPENEM 500 MG in NS 50 ML IV SCH ×4 (00:58→22:28)
--- NOTE | 2017-12-06 00:58 | History & Physical Report ---
History of Present Illness Date: 12/06/17 Chief complaint: short of breath HPI: This is a 86 y/o female who lives at an assisted care center. The patient was noted to have an episode of hypoglycemia today. She was treated in usual fashion and when rechecked was found to have emesis on he clothing and increased short of breath . The patient was hypoxic. The patient was transferred to ED where CXR demonstrates right lower lobe process. (appreciate poor quality x ray) The patient is requiring high flow oxygen and has remarkable rhonchi on her right lung. The patient did have further nausea/ vomiting in the ED when she was NT suctioned. The patient will be admitted into the ICU to treat a possible aspiration event. Note that with a positive xray she will also be considered HCAP and will be covered with ANB that can address both disease processes given her allergy to PcN. Review of Systems Review of systems: patient able to communicate wth high flow oxygen in place no headache, no described fever, chills or sweats. 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 -ventral/incisional hernia repair with mesh. Vag Hyst 1969. Inguinal hernia repair-1994. Right knee meniscus tear repair-2002. Trabeculectomy right eye- 2002. Laparoscopic ventral herniorrhaphy with incorporation of mesh 2008. Mohs surgery for basal cell carcinoma. Colonoscopy-1995, 1996, 2000, 2001, 2002, 2006 Family History: Family History (Last Updated 10/01/17 @ 11:57 by Sarah Troy APRN) Mother Parkinson's disease Father Stroke Brother Diabetes Stroke Family History: As Above - Social History Smoking status: Never smoker Medications Home Medications Medication Instructions Recorded Confirmed Type Acetaminophen 650 mg PO Q6H PRN 12/05/17 12/05/17 History Amlodipine [Norvasc] 10 mg PO DAILY 12/05/17 12/05/17 History Ascorbate Calcium [Vitamin C] 500 mg PO DAILY 12/05/17 12/05/17 History Atorvastatin [Lipitor] 20 mg PO 1700 12/05/17 12/05/17 History Benazepril [Lotensin] 40 mg PO DAILY 12/05/17 12/05/17 History Cholestyramine (with Sugar) 1 pack PO Q4H PRN 12/05/17 12/05/17 History [Cholestyramine Packet] Docusate Sodium [Colace] 100 mg PO DAILY 12/05/17 12/05/17 History Duloxetine [Cymbalta] 90 mg PO DAILY 12/05/17 12/05/17 History Ferrous Sulfate 325 mg PO DAILY 12/05/17 12/05/17 History Gabapentin [Neurontin] 300 mg PO QID 12/05/17 12/05/17 History Guaifenesin/Dextromethorphan 10 ml PO Q4H PRN 12/05/17 12/05/17 History [Diabetic Tussin Dm Max-Str Liq] Hydrocodone/APAP 7.5/325 [Swengel 0.5 tab PO 5XD 12/05/17 12/05/17 History 7.5/325] Hydrocodone/APAP 7.5/325 [Swengel 1 tab PO Q6H PRN 12/05/17 12/05/17 History 7.5/325] Loperamide [Imodium] 2 mg PO QID PRN 12/05/17 12/05/17 History Loratadine Odt [Claritin Redi-Tab] 10 mg PO DAILY 12/05/17 12/05/17 History Magnesium Oxide [Magnesium] 400 mg PO DAILY 12/05/17 12/05/17 History Potassium Chloride 20 meq PO DAILY 12/05/17 12/05/17 History PrednisoLONE EYE DROPS [Pred Mild] 1 drop RIGHT EYE DAILY 12/05/17 12/05/17 History Ropinirole [Requip] 0.5 mg PO BID 12/05/17 12/05/17 History Allergies Allergy/AdvReac Type Severity Reaction Status Date / Time meperidine Allergy Intermediate HIVES Verified 12/05/17 18:26 Penicillins Allergy Intermediate HIVES Verified 12/05/17 18:26 tetracycline AdvReac Mild STOMACH Verified 12/05/17 18:26 Exam Vital Signs: Temperature 99.1 F 12/05/17 22:15 Pulse Rate 117 H 12/05/17 23:39 Respiratory Rate 39 H 12/06/17 00:45 Blood Pressure 148/63 H 12/05/17 23:39 Pulse Oximetry 92 12/05/17 23:39 Telemetry Rhythm: Sinus Rhythm Height/Weight/BMI: Height 1.68 m Weight 60.2 kg Body Mass Index 21.4 - Constitutional Present: moderate distress, well nourished, well developed, average body habitus , cooperative - Routine HEENT Exam Head: Present: normocephalic, atraumatic Eye: Present: EOMI - Routine Neck Exam Present: supple - Routine Respiratory Exam Present: accessory muscle use, dyspnea - Routine Cardiovascular Exam Present: RRR - Routine Abdominal Exam Present: soft, normoactive bowel sounds, non distended, non tender - Routine Extremities Exam Present: no edema, full ROM - Routine Skin Exam Present: intact - Routine Neurological Exam Present: alert, oriented X3 - Routine Psychiatric Exam Present: normal affect Results - Labs CBC & Chem 7: 12/06/17 11:53 12/06/17 05:24 Microbiology Results: Microbiology 12/05/17 20:54 Urine, Cath Caro Urine Culture - Preliminary Culture Initiated - Results Pending 12/05/17 19:16 Peripheral/Iv Start Blood Culture - Preliminary Culture Initiated - Results Pending 12/05/17 19:30 Peripheral/Iv Start Blood Culture - Preliminary Culture Initiated - Results Pending Assessment and Plan (1) Acute respiratory failure with hypoxia Current visit: Yes Status: Acute (2) Aspiration pneumonia Current visit: Yes Status: Acute Assessment and Plan: 1. aspiration pneumonia with possible HCAP: mreopenum, vanco, cx, adjust as indicated 2. hypoxic resp failure: 2/2 # 1. severe. icu, dnr, dni. will tx with nebs , antibitoics, oxygen and follow closely 3. DM2 chronic POA: correctional plan 4. HTN chronic POA: monito blood pressure, continue home meds, adjust as indicated 5. dementia mild chronic POA: to be aware of 6. DVT ppx: scd, lovenox DVT Prophylaxis: SCD's GI Prophylaxis: Protonix Resuscitation Status: Do Not Resuscitate - Time spent with patient Time with patient PN: 30 minutes - Physician Narrative Physician: Candy Salinas MD Narrative: Date: 12/06/17 Time: 1220 Dr. Yanez's note reviewed. Mrs. Billingsley examined, her is at bedside and provides history. CC: Respiratory distress after vomiting HPI: Mrs. Billingsley is an 86-year-old female with multiple chronic medical problems. She was last hospitalized approximately a month ago with enteritis and heme positive stools. At that time she was found to have thickening at the colonic anastomosis either due to inflammation or possibly recurrent tumor. Her reports that she had 3 days of nausea, vomiting, and diarrhea about 2 weeks ago; is not aware of any bleeding at that time and she was not referred to the emergency room for assessment. Yesterday the facility she lives at did not have air conditioning. Her reports she was in her usual state of health and a breakfast well in the morning. He was not present at lunch but sometime in the early afternoon she had an episode of hypoglycemia with blood sugar dropping into the 40s. It was treated in usual manner and later when she was rechecked she was found to have emesis on her clothing and was described as being short of breath and hypoxic. She transferred to the emergency room with suspected aspiration. She was on 10 L supplemental oxygen via nonrebreather mask when she arrived in the emergency room with O2 saturation of 97% although oxygenation deteriorated after suctioning and several additional episodes of emesis in the emergency room. She was admitted to the intensive care unit with probable aspiration pneumonia/pneumonitis and chest x-ray demonstrated right sided infiltrate. Antibiotics were initiated. Overnight the patient had several episodes of bloody emesis followed by black liquid stools which were heme positive and progressive drop in hemoglobin requiring transfusion of 1 unit packed red blood cells early this morning. Patient has a DO NOT RESUSCITATE order which her confirms this morning. PH/SH/FH: agree with that recorded above including my updates earlier today. The patient is a chronic resident at [facility] and does not drink alcohol or use illicit substances. PCP is Dr. Torres, her DPOA is her Shirin Billingsley, and she has a DO NOT RESUSCITATE order. ROS: 10 point review unobtainable from patient; reports all sounds have been hyperactive for 7-10 days, she has chronic pain related to her back and restless legs, she has trouble sleeping, blind in her left eye, and that she has difficulty walking taking only very small steps while using a walker. EXAM: General-uncomfortable appearing female, restless, does not respond to questions ; 97.5, maximum temperature overnight 100.1, 114/57, 22, 96% on Vapotherm with FiO2 100%, flow 35% HEENT-PERRL, EOMI without nystagmus, conjunctiva clear, sclera anicteric, conjugate gaze, facial structures symmetric, oropharynx with dry blood on lips and anterior oral membranes, neck supple and without adenopathy Lungs-slightly tympanitic, moderately labored, anteriorly breath sounds in the lower field are coarse, no wheezing appreciated; breath sounds are partially obscured by patient moaning continuously Cardiac-regular rhythm, S1-S2, low-grade tachycardia Abd-soft, bowel sounds present, no guarding or obvious localized tenderness; 4 x 6 cm area of granulation tissue mid upper abdomen Ext-without edema Skin-generalized pallor Neuro-facial structures grossly symmetric, pupils equal and react to light; moving all extremities spontaneously and grossly symmetrically, withdraws all 4 extremities to stimulation Psych-slightly agitated DATA: WBC 16.8-20.1-15.6; hemoglobin 10.9-9.5-7.4-7.9. INR 1.25. Potassium this morning 5.6, creatinine 0.8, glucose 236, proBNP 639, lactic acid 1.7-1.1 Hemoccult 1 positive UA with 50-200 WBC, positive ketones, negative nitrite, +4 bacteria Respiratory viral panel negative Chest x-ray by my review demonstrates some motion artifact, cardiomegaly, possible right basilar infiltrate and questionable left mid lung infiltrate- film is overpenetrated and difficult to interpret EKG sinus tachycardia with a reticulocyte baseline, nonspecific ST/T-wave changes Repeat CT abdomen obtained 3 days prior to admission-report reviewed by myself and with the patient's . There is persistent thickening at the colonic anastomosis raising question of recurrent tumor versus persistent infectious pathology. A/P: Acute hypoxic respiratory failure Aspiration pneumonia/pneumonitis Acute GI bleed-upper Acute blood loss anemia Nausea/vomiting Diabetes mellitus Hypertension Chronic pain Restless leg syndrome Spinal stenosis hx colon cancer/lymphoma Thickening at colonic anastomosis Patient is critically ill. She is requiring 100% FiO2 provided by Vapotherm; I' m reluctant to use BiPAP due to agitation and due to risk of additional emesis. Spectrum antibiotics initiated overnight with cefepime and vancomycin-continue same. IV steroids initiated for inflammation associated with aspiration. Chest x-ray will be repeated. 1 unit of blood was transfused this morning due to drop in hemoglobin and respiratory status precludes endoscopic studies at this time. Follow serial hemoglobins, IV PPI twice a day, surgical consultation initiated- discussed with Dr. Flores. Patient is currently nothing by mouth and home medications are on hold due to hemodynamic instability. IV pain medications being utilized. Corrective insulin. Prognosis is guarded at best- appraised of this and is notifying his children. Critically ill-time in 1015, time out 1118; additional time off unit. Hospital Course Summary Disclaimer: The visit summary below is not to be considered part of the above Progress Note. Hospital Course: 12/06/17 Admitted overnight with aspiration pneumonia following an episode of hypoglycemia. Nonrebreather mask on presentation for oxygenation. Recurrent nausea and vomiting; subsequently developed bloody emesis and melanotic stools with drop in hemoglobin. Patient is critically ill. She is requiring 100% FiO2 provided by Vapotherm; I' m reluctant to use BiPAP due to agitation and due to risk of additional emesis. Spectrum antibiotics initiated overnight with cefepime and vancomycin-continue same. IV steroids initiated for inflammation associated with aspiration. Chest x-ray will be repeated. 1 unit of blood was transfused this morning due to drop in hemoglobin and respiratory status precludes endoscopic studies at this time. Follow serial hemoglobins, IV PPI twice a day, surgical consultation initiated- discussed with Dr. Flores. Patient is currently nothing by mouth and home medications are on hold due to hemodynamic instability. IV pain medications being utilized. Corrective insulin.
[2017-12-06] MEDS: PANTOPRAZOLE 40 MG INJECTION IVP SCH ×3 (02:52→20:48)
[2017-12-06] MEDS: INSULIN ASPART 100unit/ml INJECTION SQ PRN ×3 (04:47→21:23)
[2017-12-06] MEDS: ALBUTEROL/IPRATROPIUM 2.5mg-0.5mg/3ml NEB AEROSOL SCH ×4 (05:40→19:48)
[2017-12-06] MEDS: BUDESONIDE INH.SOLN 0.5mg/2ml NEB AEROSOL SCH ×2 (05:45→19:48)
[2017-12-06] MEDS ORDERED: ACETAMINOPHEN 325 MG TABLET PO PRN (06:26)
[2017-12-06] MEDS ORDERED: ACETAMINOPHEN 650 MG SUPPOSITORY PR PRN (06:26)
[2017-12-06] MEDS: SALINE FLUSH 10ml SYRINGE IVF PRN ×4 (08:03→20:53)
--- NOTE | 2017-12-06 08:04 | Pharmacy Consult-Antibiotics ---
Pharmacy Consult-Vancomycin - Laboratory Information WBC 15.3 T/MM3 (4.5-11.0) H 12/06/17 05:24 BUN 33.0 MG/DL (7-17) H 12/06/17 05:24 Creatinine 0.8 mg/dL (0.7-1.2) 12/06/17 05:24 VANCOMYCIN THERAPY: 86yo F from assisted living facility with possible aspiration pneumonia, HCAP, hypoxia, RLL rhonchi. Was given VANCOMYCIN 1500mg Loading Dose last night at 2341. Renal fx is compromised but stable at this time. Will continue VANCOMYCIN @ 750mg IV q 12 hours. This gives calculated peak/ trough of 45/18 mcg/ml. Will confirm trough level prior to tomorrow am dose. Trough target level = 15 - 20 mcg/ml. Thank you
[2017-12-06] MEDS: METHYLPREDNISOLONE SOD SUCC 125mg/2ml INJECTION IVP SCH ×2 (11:37→17:18)
[2017-12-06] MEDS: NS 1,000 ML IV SCH (16:59)
--- NOTE | 2017-12-06 18:07 | Consultation ---
DATE OF CONSULTATION 12/06/2017 HISTORY OF PRESENT ILLNESS This patient is 86 years old. This patient did undergo a left hemicolect[place] [address] Gomez for treatment of colon carcinoma. The patient was hospitalized about one month ago with enteritis and Hemoccult-positive stools. The patient was found to have some thickening of her colonic anastomosis on the CT scan at that time due to either inflammation or possibly recurrent tumor. The patient did have three days of nausea, vomiting and diarrhea about two weeks ago. There was no blood in any of the emesis or in the stools at that time. The patient does live in the [facility] care center at [facility]. She does not take any anticoagulants. The patient was not feeling well on 12/05/2017. She did have a blood glucose monitor reading which was in the 40s at that time. This hypoglycemia was treated with a good response. The patient later had some nonbloody emesis on 12/05/2017. She was noted to have some shortness of breath after this. There was concern at this point that the patient might have aspirated. The patient was sent to [facility] Emergency Room for evaluation for possible aspiration. At evaluation at [facility] Emergency [facility], the white blood cell count was 16,800. Hemoglobin was 10.9. Hematocrit was 35.7. The patient did have a chest x-ray performed at the time of evaluation at the emergency room which showed right lower lobe findings suspicious for aspiration pneumonia. The patient did undergo some nasotracheal suctioning by Respiratory Therapy in the emergency room and did have some bloody emesis at this time. The patient was admitted to the intensive care unit at [facility] from the emergency room. The patient did undergo more nasotracheal suctioning by Respiratory Therapy early in the morning of 12/06/2017. The patient had a moderate amount of dark red/brown emesis at that time. Later in the morning, the patient had a black liquid bowel movement which looked like melena. This was Hemoccult tested and this stool was Hemoccult positive. Hemoglobin for the patient was 7.4 and hematocrit was 24.4 at 0524 hours on 12/06/2017. The patient is thought to have some acute upper gastrointestinal tract bleeding at this time. PAST MEDICAL HISTORY PREVIOUS OPERATIONS 1. Laparoscopic ventral herniorrhaphy with incorporation of mesh [place] [address] Gomez at [facility]. 2. Left hemicolectomy in [address] Gomez at [facility] for treatment of colon carcinoma. PHYSICAL EXAM VITAL SIGNS: Pulse is 90. Respiratory rate is 18. Oxygen saturation is 98% at this time with oxygen administration. ABDOMEN: The abdomen is soft and nontender. There is an old midline vertically oriented incision scar. No abdominal masses can be palpated. RECTUM: Exam deferred at this time. LABORATORY DATA Hemoglobin was 7.4 and hematocrit was 24.4 at 0524 hours on 12/06/2017. Hemoglobin was 7.9 and hematocrit was 25 at 1153 hours on 12/06/2017. Urinalysis on 12/05/2017 showed 50-200 white blood cells per high-powered field and 4+ bacteria. INR is 1.25. IMPRESSION 1. Acute hypoxic respiratory failure. 2. Aspiration pneumonia. 3. Acute upper gastrointestinal tract bleeding with hematemesis and melena. 4. Acute blood loss anemia. RECOMMENDATIONS 1. Continue to monitor hemoglobin and hematocrit. 2. Transfuse as necessary. 3. The respiratory status of the patient precludes esophagogastroduodenoscopy at this time. As the respiratory status of this patient improves, the patient could be considered for esophagogastroduodenoscopy for further evaluation and treatment of the acute upper gastrointestinal tract bleeding. 4. I agree with the intravenous Protonix which the patient is receiving at this time. MTDD
[2017-12-06] MEDS ORDERED: FALL RISK - PHARMACY CONSULT MC ONE (23:17)
[2017-12-07] MEDS: MORPHINE SULFATE 2mg INJECTION IVP PRN ×7 (02:48→22:24)
[2017-12-07] MEDS: SALINE FLUSH 10ml SYRINGE IVF PRN ×2 (02:49→09:25)
[2017-12-07] MEDS: ALBUTEROL/IPRATROPIUM 2.5mg-0.5mg/3ml NEB AEROSOL SCH ×4 (04:19→21:50)
[2017-12-07] MEDS: INSULIN ASPART 100unit/ml INJECTION SQ PRN ×4 (04:27→21:15)
[2017-12-07] MEDS: NS 1,000 ML IV SCH ×3 (05:26→22:29)
[2017-12-07] MEDS: MEROPENEM 500 MG in NS 50 ML IV SCH ×3 (05:26→21:15)
[2017-12-07] MEDS: METHYLPREDNISOLONE SOD SUCC 125mg/2ml INJECTION IVP SCH ×3 (09:24→18:20)
[2017-12-07] MEDS: PANTOPRAZOLE 40 MG INJECTION IVP SCH ×2 (09:28→21:15)
--- NOTE | 2017-12-07 09:37 | Pharmacy Consult-Antibiotics ---
Pharmacy Consult-Vancomycin - Laboratory Information WBC 12.3 T/MM3 (4.5-11.0) H 12/07/17 02:04 BUN 32.0 MG/DL (7-17) H 12/07/17 02:55 Creatinine 0.6 mg/dL (0.7-1.2) L 12/07/17 08:23 Vancomycin Trough 12.80 ug/mL (15-20) L 12/07/17 08:23 VANCOMYCIN THERAPY: DAY 3 86yo F from assisted living facility with possible aspiration pneumonia, HCAP, hypoxia, RLL rhonchi. WBC improving. Renal Fx improving. Target Trough range = 15-20mcg/ml. AM dose was held until results. Now will increase regimen to VANCOMYCIN 1250mg IV q12hr, starting with this am dose. This gives calculated peak/trough of 61/17 respectively. Will continue to follow and adjust regimen to maintain therapeutic levels. Thank you.
[2017-12-07] MEDS: BUDESONIDE INH.SOLN 0.5mg/2ml NEB AEROSOL SCH ×2 (10:00→21:50)
--- NOTE | 2017-12-07 10:22 | XRay Report ---
Indication: acute resp failure PROCEDURE: XR chest 1V: Encounter: Initial Comparison: December 05, 2017 Findings: Worsening airspace consolidation in both lower lobes, right greater than left. Hypoinflation. Small effusions. No pneumothorax. Patient is significantly rotated limiting evaluation of the heart and mediastinal contours. Impression: Worsening lower lobe pneumonia or aspiration. .
--- NOTE | 2017-12-07 11:21 | XRay Report ---
INDICATION: aspiration PROCEDURE: CHEST 2-VIEWS UPRIGHT (PA & LAT) Encounter: Initial COMPARISON: July 15, 2016 FINDINGS: New airspace consolidation in the right lower lobe. No pneumothorax. Chronic opacity in the left base. Patient is rotated and angulated. Heart size is mildly enlarged. Mediastinal contours are difficult to evaluate with the rotation present. Pulmonary vascularity is grossly normal. Impression: Right lower lobe pneumonia or aspiration. .
[2017-12-07] MEDS: CLINDAMYCIN PB 600 MG/50 ML BAG IV SCH ×2 (12:29→19:40)
--- NOTE | 2017-12-07 13:38 | Progress Note ---
- Date 12/07/17 Subjective: Mrs. Billingsley was easily arousable to voice this morning. She complained of dyspnea, cough without sputum production, and abdominal pain. She distally complains of pain in her legs. She's had no nausea or vomiting overnight and has had no further melanotic stools per nursing. Patient reports feeling warm but has not had recorded fever overnight. Oxygenation has improved slightly with O2 flow decreased to 80% with continuous use of Vapotherm. Objective Vital signs: Temperature 98.0 F 12/07/17 11:00 Pulse Rate 88 12/07/17 12:00 Respiratory Rate 21 12/07/17 13:15 Blood Pressure 140/66 H 12/07/17 11:00 Pulse Oximetry 90 -80% 12/07/17 13:18 I/O 2088/1126 Weight up 1.4 kg Moderately uncomfortable appearing elderly female, alert, verbally responsive today with appropriate answers Conjugate gaze, sclera anicteric, conjunctiva clear, oropharynx clear Respirations nonlabored with Vapotherm arm, diminished airflow throughout, coarse breath sounds bilaterally; coarse cough Regular rhythm, S1-S2 Abdomen soft, nontender, bowel sounds present Extremities without edema, SCDs on Weak slider assembler bilaterally, dorsiflexion/plantar flexes at both ankles symmetrically Generalized pallor Rhythm: Normal Sinus Rhythm Height/Weight/BMI: Height 1.68 m Weight 61.6 kg Body Mass Index 21.4 Results - Labs CBC & Chem 7: 12/07/17 02:04 12/07/17 08:23 Labs: Morning electrolytes: Sodium 144, potassium 4.4, bicarbonate 44, BUN 32, glucose 177, calcium 7.9, magnesium 2.4, phosphorus 3.7, albumin 2.5 Microbiology Results: Microbiology 12/05/17 20:54 Urine, Cath Caro Urine Culture - Final Escherichia coli 12/05/17 23:40 Urine Legionella Urinary Antigen - Final 12/05/17 19:16 Peripheral/Iv Start Blood Culture - Preliminary No Growth After 1 Day 12/05/17 19:30 Peripheral/Iv Start Blood Culture - Preliminary No Growth After 1 Day - ABG Interpretation Attestation: I reviewed and interpreted this ABG. (mild respiratory acidosis with marked hypoxia) ABG results: 12/07/17 06:51 ABG pH 7.335 L ABG pCO2 53 H ABG pO2 134.4 H ABG HCO3 28.4 H ABG Total CO2 30.0 H ABG O2 Saturation 98.8 H ABG Base Excess 2.2 H - Imaging and Cardiology Chest x-ray Status: image reviewed by me (chest x-ray late yesterday with worsening consolidation bilateral lower lobes R>L--film reviewed with patient's ) Assessment and Plan (1) Acute respiratory failure with hypoxia Current visit: Yes Status: Acute (2) Aspiration pneumonia Current visit: Yes Status: Acute Assessment and Plan: Impression: Acute hypoxic/hypercarbic respiratory failure Aspiration pneumonia/pneumonitis Acute GI bleed-upper Acute blood loss anemia-1 unit PRBC 12/06/17 Nausea/vomiting Leukocytosis UTI-Escherichia coli Diabetes mellitus Hypertension Chronic pain Restless leg syndrome Spinal stenosis hx colon cancer/lymphoma Thickening at colonic anastomosis Plan: Evidence of clinical improvement present today-patient more alert, minor improvement in oxygenation. Blood cultures negative, urine culture positive Escherichia coli. Cough ineffective to collect sputum culture thus far. Chest x-ray with increased infiltrates bilateral lower lobes-especially on the right. Clindamycin added given high probability of aspiration; discontinue vancomycin. UTI adequately covered with meropenem. Hemoglobin stable following 1 unit packed red blood cells yesterday; respiratory status remains to compromise to consider EGD. Continue supportive care, Vapotherm for management of respiratory failure, corrective insulin, and pain medications IV. PT/OT/speech therapy evaluations in a.m. Discussed with Dr. Flores, , and nursing. DVT Prophylaxis: SCD's GI Prophylaxis: Protonix Resuscitation Status: Do Not Resuscitate - Physician Narrative Narrative: Date: 12/07/17 Time: 1333 Hospital Course Summary Disclaimer: The visit summary below is not to be considered part of the above Progress Note. Hospital Course: 12/06/17 Admitted overnight with aspiration pneumonia following an episode of hypoglycemia. Nonrebreather mask on presentation for oxygenation. Recurrent nausea and vomiting; subsequently developed bloody emesis and melanotic stools with drop in hemoglobin. Patient is critically ill. She is requiring 100% FiO2 provided by Vapotherm; I' m reluctant to use BiPAP due to agitation and due to risk of additional emesis. Spectrum antibiotics initiated overnight with cefepime and vancomycin-continue same. IV steroids initiated for inflammation associated with aspiration. Chest x-ray will be repeated. 1 unit of blood was transfused this morning due to drop in hemoglobin and respiratory status precludes endoscopic studies at this time. Follow serial hemoglobins, IV PPI twice a day, surgical consultation initiated- discussed with Dr. Flores. Patient is currently nothing by mouth and home medications are on hold due to hemodynamic instability. IV pain medications being utilized. Corrective insulin. 12/07/17 Evidence of clinical improvement present today-patient more alert, minor improvement in oxygenation. Blood cultures negative, urine culture positive Escherichia coli. Cough ineffective to collect sputum culture thus far. Chest x-ray with increased infiltrates bilateral lower lobes-especially on the right. Clindamycin added given high probability of aspiration; discontinue vancomycin. UTI adequately covered with meropenem. Hemoglobin stable following 1 unit packed red blood cells yesterday; respiratory status remains to compromise to consider EGD. Continue supportive care, Vapotherm for management of respiratory failure, corrective insulin, and pain medications IV. PT/OT/speech therapy evaluations in a.m.
[2017-12-07] MEDS: D5LR 1,000 ML IV SCH (15:03)
[2017-12-08] MEDS: METHYLPREDNISOLONE SOD SUCC 125mg/2ml INJECTION IVP SCH ×3 (00:25→17:15)
[2017-12-08] MEDS: MORPHINE SULFATE 2mg INJECTION IVP PRN ×10 (02:15→23:20)
[2017-12-08] MEDS: CLINDAMYCIN PB 600 MG/50 ML BAG IV SCH ×3 (02:44→19:25)
[2017-12-08] MEDS: ALBUTEROL/IPRATROPIUM 2.5mg-0.5mg/3ml NEB AEROSOL SCH ×4 (03:29→22:55)
[2017-12-08] MEDS: SALINE FLUSH 10ml SYRINGE IVF PRN ×3 (03:50→10:52)
[2017-12-08] MEDS: INSULIN ASPART 100unit/ml INJECTION SQ PRN ×4 (04:03→22:09)
[2017-12-08] MEDS: MEROPENEM 500 MG in NS 50 ML IV SCH ×3 (05:48→21:45)
[2017-12-08] MEDS: NS FLUSH BAG 500ml IV PRN (05:49)
--- NOTE | 2017-12-08 08:41 | Progress Note ---
DATE 12/07/2017 HISTORY The patient has had no further hematemesis or bloody stools in the last 24 hours. Nurses report that the respiratory status of the patient is slightly improved today compared to yesterday. PHYSICAL EXAMINATION VITAL SIGNS: Pulse is 94. Blood pressure is 145/68. Respiratory rate is 20. ABDOMEN: The abdomen is soft and nontender. No abdominal masses. LABORATORY DATA Hemoglobin is 8.5 and hematocrit is 27.2 today. IMPRESSION 1. Acute hypoxic respiratory failure. 2. Aspiration pneumonia. 3. Acute upper gastrointestinal tract bleeding with hematemesis and melena. 4. Acute blood loss anemia. Hemoglobin and hematocrit are improved today. RECOMMENDATIONS 1. Continue intravenous Protonix. 2. Continue to monitor hemoglobin and hematocrit. 3. Transfuse as necessary. 4. Esophagogastroduodenoscopy at some point after the respiratory status has improved further. MTDD
[2017-12-08] MEDS: BUDESONIDE INH.SOLN 0.5mg/2ml NEB AEROSOL SCH ×2 (08:50→22:54)
--- NOTE | 2017-12-08 09:06 | XRay Report ---
Indication: hypoxia PROCEDURE: XR chest 1V: Encounter: Initial Comparison: 12/06/2017 Findings: There is cardiac megaly and probably vascular congestion with moderate interstitial pulmonary edema and bibasilar atelectasis. There may also be bilateral pleural effusions. Trachea is midline. There is moderate tortuosity of the descending thoracic aorta. The examination is slightly expiratory in nature which may overestimate the amount of interstitial lung disease. Impression: Moderate CHF with possible bilateral pleural effusions. .
[2017-12-08] MEDS ORDERED: FUROSEMIDE 20 MG/2 ML INJECTION IVP ONE ×2 (09:13→19:12)
[2017-12-08] MEDS: PANTOPRAZOLE 40 MG INJECTION IVP SCH ×2 (09:23→21:46)
[2017-12-08] MEDS: D5LR 1,000 ML IV SCH (15:20)
--- NOTE | 2017-12-08 20:13 | Progress Note ---
- Date 12/08/17 Subjective: Patient was seen twice today and was sleeping soundly after pain medication had been administered on both occasions. Nursing and family both report she complains of pain all over when she awakens and cannot be maintained in a alert and comfortable state simultaneously. When awake she has increased cough but doesn't clear secretions and oxygen demand increases, when resting more comfortably after pain medications are administered oxygen can be titrated down to about 70% on Vapotherm. Urine output has been good per nursing; patient was unable to work with therapies today. Objective Vital signs: Temperature 97.4 F 12/08/17 16:15 Pulse Rate 69 12/08/17 19:00 Respiratory Rate 20 12/08/17 19:20 Blood Pressure 166/74 H 12/08/17 19:00 Pulse Oximetry 93 -on 90% per Vapotherm 12/08/17 19:00 I/O 1800/1285 yesterday Weight up 2.5 kg from admission Resting comfortably until stimulated when the patient moans but does not respond to questions Briefly opens eyes, conjunctiva clear Resting position-on the left when I first saw her, on the right later Diminished breath sounds but grossly clear Neck veins distended but patient is laying with head of bed elevated only about 10 Regular rhythm, S1-S2 Abdomen soft, nontender, bowel sounds present although diminished Edema present left elbow below the blood pressure cuff, trace edema bilateral lower extremities Moves upper extremities spontaneously when stimulated; lower extremities not assessed due to known hypersensitivity Rhythm: Normal Sinus Rhythm Height/Weight/BMI: Height 1.68 m Weight 62.7 kg Body Mass Index 21.4 Results - Labs CBC & Chem 7: 12/08/17 04:00 12/08/17 04:00 Labs: S96 L4 Microbiology Results: Microbiology 12/05/17 19:30 Peripheral/Iv Start Blood Culture - Preliminary No Growth After 3 Days 12/05/17 19:16 Peripheral/Iv Start Blood Culture - Preliminary No Growth After 3 Days 12/05/17 20:54 Urine, Cath Caro Urine Culture - Final Escherichia coli 12/05/17 23:40 Urine Legionella Urinary Antigen - Final - ABG Interpretation ABG results: 12/07/17 06:51 ABG pH 7.335 L ABG pCO2 53 H ABG pO2 134.4 H ABG HCO3 28.4 H ABG Total CO2 30.0 H ABG O2 Saturation 98.8 H ABG Base Excess 2.2 H - Imaging and Cardiology Chest x-ray Status: image reviewed by me (moderate pulmonary edema/bibasilar atelectasis, rotated film-poor inspiratory effort versus expiratory film) Assessment and Plan (1) Acute respiratory failure with hypoxia Current visit: Yes Status: Acute (2) Aspiration pneumonia Current visit: Yes Status: Acute Assessment and Plan: Impression: Acute hypoxic/hypercarbic respiratory failure Aspiration pneumonia/pneumonitis Acute GI bleed-upper Acute blood loss anemia-1 unit PRBC 12/06/17 Nausea/vomiting Leukocytosis UTI-Escherichia coli Diabetes mellitus Hypertension Chronic pain Restless leg syndrome Spinal stenosis hx colon cancer/lymphoma Thickening at colonic anastomosis Hypernatremia-07/11/17 CHF Plan: Diuresing well spontaneously this morning and oxygen saturation titrated to 70% on Vapotherm; back to 90% this evening. Lasix given to promote further diuresis. Chest x-ray clearly looks worse today, BNP was elevated yesterday. Patient to somnolent for speech therapy to evaluate, oral medications remain on hold Leukocytosis improving-continue meropenem/clindamycin. Unlikely to obtain sputum culture. Pansensitive Escherichia coli UTI-effectively covered with above antibiotics Hemoglobin stable, no further hematemesis or melena; Sachi-Corrigan tear likely. Discussed with Dr. Flores-I believe respiratory status too unstable to contemplate EGD; continues conservative management and reassess later in the week. Blood sugars 183-269 past 24 hours, corrective insulin available. Sodium 150 today, receiving low-volume [id number] goal of diuresing today we'll place fluids on hold and reassess electrolytes/glucose in a.m. Echocardiogram requested. Continue supportive care, Vapotherm for management of respiratory failure, corrective insulin, and pain medications IV. May require nutritional support if unable to resume oral nutrition soon. Consider Dodaohoaj/ CRISTINA for nutrition/meds. PT/OT/speech therapy evaluations when patient able to interact. Status remains very compromised, prognosis uncertain at best Discussed with Dr. Flores, , and nursing. - Physician Narrative Narrative: Date: 12/08/17 Time: 2007 Hospital Course Summary Disclaimer: The visit summary below is not to be considered part of the above Progress Note. Hospital Course: 12/06/17 Admitted overnight with aspiration pneumonia following an episode of hypoglycemia. Nonrebreather mask on presentation for oxygenation. Recurrent nausea and vomiting; subsequently developed bloody emesis and melanotic stools with drop in hemoglobin. Patient is critically ill. She is requiring 100% FiO2 provided by Vapotherm; I' m reluctant to use BiPAP due to agitation and due to risk of additional emesis. Spectrum antibiotics initiated overnight with cefepime and vancomycin-continue same. IV steroids initiated for inflammation associated with aspiration. Chest x-ray will be repeated. 1 unit of blood was transfused this morning due to drop in hemoglobin and respiratory status precludes endoscopic studies at this time. Follow serial hemoglobins, IV PPI twice a day, surgical consultation initiated- discussed with Dr. Flores. Patient is currently nothing by mouth and home medications are on hold due to hemodynamic instability. IV pain medications being utilized. Corrective insulin. 12/07/17 Evidence of clinical improvement present today-patient more alert, minor improvement in oxygenation. Blood cultures negative, urine culture positive Escherichia coli. Cough ineffective to collect sputum culture thus far. Chest x-ray with increased infiltrates bilateral lower lobes-especially on the right. Clindamycin added given high probability of aspiration; discontinue vancomycin. UTI adequately covered with meropenem. Hemoglobin stable following 1 unit packed red blood cells yesterday; respiratory status remains to compromise to consider EGD. Continue supportive care, Vapotherm for management of respiratory failure, corrective insulin, and pain medications IV. PT/OT/speech therapy evaluations in a.m. 12/08/17 Diuresing well spontaneously this morning and oxygen saturation titrated to 70% on Vapotherm; back to 90% this evening. Lasix given to promote further diuresis. Chest x-ray clearly looks worse today, BNP was elevated yesterday. Patient to somnolent for speech therapy to evaluate, oral medications remain on hold Leukocytosis improving-continue meropenem/clindamycin. Unlikely to obtain sputum culture. Pansensitive Escherichia coli UTI-effectively covered with above antibiotics Hemoglobin stable, no further hematemesis or melena; Sachi-Corrigan tear likely. Discussed with Dr. Flores-I believe respiratory status too unstable to contemplate EGD; continues conservative management and reassess later in the week. Blood sugars 183-269 past 24 hours, corrective insulin available. Sodium 150 today, receiving low-volume [id number] goal of diuresing today we'll place fluids on hold and reassess electrolytes/glucose in a.m. Echocardiogram requested. Continue supportive care, Vapotherm for management of respiratory failure, corrective insulin, and pain medications IV. May require nutritional support if unable to resume oral nutrition soon. Consider Dobbhoff/ NG for nutrition/meds. Remains very compromised, prognosis uncertain at best.
[2017-12-09] MEDS: MORPHINE SULFATE 2mg INJECTION IVP PRN ×9 (00:43→23:24)
[2017-12-09] MEDS: METHYLPREDNISOLONE SOD SUCC 125mg/2ml INJECTION IVP SCH ×3 (01:16→17:09)
[2017-12-09] MEDS: CLINDAMYCIN PB 600 MG/50 ML BAG IV SCH ×3 (04:01→19:42)
[2017-12-09] MEDS: ALBUTEROL/IPRATROPIUM 2.5mg-0.5mg/3ml NEB AEROSOL SCH ×5 (05:00→19:30)
[2017-12-09] MEDS: MEROPENEM 500 MG in NS 50 ML IV SCH ×3 (05:22→21:04)
[2017-12-09] MEDS: LIDOCAINE 1% INJ 10 MG, POTASSIUM CHLORIDE INJ 10 MEQ in NS 100 ML IV SCH ×3 (06:08→09:11)
[2017-12-09] MEDS: PANTOPRAZOLE 40 MG INJECTION IVP SCH ×2 (08:17→21:04)
[2017-12-09] MEDS: INSULIN ASPART 100unit/ml INJECTION SQ PRN ×2 (10:05→16:18)
[2017-12-09] MEDS: BUDESONIDE INH.SOLN 0.5mg/2ml NEB AEROSOL SCH ×2 (10:10→19:29)
--- NOTE | 2017-12-09 12:06 | Progress Note ---
- Date 12/09/17 Subjective: F/U: Acute hypoxic/hypercarbic respiratory failure, Aspiration pneumonia/ pneumonitis, Acute GI bleed-upper Resting in bed, will open eye to verbal stimuli but not engaging in conversation. Therapy had pt up to side of bed - suspect increased pain as caused patient to yell out. Speech to check swallow today at noon. Maintaining saturation on Vapotherm, able to ween down slightly from yesterday. Net fluid decrease of 2822 yesterday; creatinine stable at 0.6 - potassium decreased to 3.2. Objective Vital signs: Temperature 97.8 F 12/09/17 11:00 Pulse Rate 83 12/09/17 11:10 Respiratory Rate 34 H 12/09/17 11:10 Blood Pressure 152/74 H 12/09/17 11:00 Pulse Oximetry 93 12/09/17 11:10 Rhythm: Normal Sinus Rhythm Height/Weight/BMI: Height 1.68 m Weight 59.7 kg Body Mass Index 21.4 - Constitutional Present: moderate distress, well nourished, well developed, average body habitus - Routine HEENT Exam Head: Present: normocephalic, atraumatic ENT: Present: mucous membranes dry - Routine Respiratory Exam Present: decreased breath sounds - Routine Cardiovascular Exam Present: RRR, no murmur - Routine Abdominal Exam Present: soft, non distended, non tender. Absent: normoactive bowel sounds - Routine Extremities Exam Absent: cyanosis, clubbing - Routine Musculoskeletal Exam Musculoskeletal: Present: no clubbing or cyanosis - Routine Skin Exam Present: dry, warm Comments: SCD in place. - Routine Neurological Exam Somnolent - opens eye to verbal stimuli. - Routine Psychiatric Exam Comments: Somnolent - opens eye to verbal stimuli. Results - Labs CBC & Chem 7: 12/09/17 03:58 12/09/17 03:58 Microbiology Results: Microbiology 12/05/17 19:30 Peripheral/Iv Start Blood Culture - Preliminary No Growth After 3 Days 12/05/17 19:16 Peripheral/Iv Start Blood Culture - Preliminary No Growth After 3 Days 12/05/17 20:54 Urine, Cath Caro Urine Culture - Final Escherichia coli 12/05/17 23:40 Urine Legionella Urinary Antigen - Final Assessment and Plan (1) Aspiration pneumonia Current visit: Yes Status: Acute (2) Acute respiratory failure with hypoxia Current visit: Yes Status: Acute Assessment and Plan: Impression Acute hypoxic/hypercarbic respiratory failure Aspiration pneumonia/pneumonitis Acute GI bleed - upper Acute blood loss anemia - 1 unit PRBC 12/06/17 Nausea/vomiting Leukocytosis UTI-Escherichia coli Diabetes mellitus Hypertension Chronic pain Restless leg syndrome Spinal stenosis Hx colon cancer/lymphoma Thickening at colonic anastomosis Hypernatremia (Not POA) CHF Plan Continue with meropenem and clindamycin to cover aspiration and UTI. Little improvement in CXR with current diuresis (2822cc net output) - Hold IVF for now, possible repeat dose of later today. Continue Solu-Medrol to decrease pulmonary inflammation. Continue O2 support. HGB stable - continue IV Protonix. Therapy able to have patient to side of bed, speech to recheck swallow function. Continue with supportive CCU care. Diuresing well spontaneously this morning and oxygen saturation titrated to 70% on Vapotherm; back to 90% this evening. Lasix given to promote further diuresis. Chest x-ray clearly looks worse today, BNP was elevated yesterday. Patient to somnolent for speech therapy to evaluate, oral medications remain on hold Leukocytosis improving-continue meropenem/clindamycin. Unlikely to obtain sputum culture. Pansensitive Escherichia coli UTI-effectively covered with above antibiotics Hemoglobin stable, no further hematemesis or melena; Sachi-Corrigan tear likely. Discussed with Dr. Flores-I believe respiratory status too unstable to contemplate EGD; continues conservative management and reassess later in the week. Blood sugars 183-269 past 24 hours, corrective insulin available. Sodium 150 today, receiving low-volume [id number] goal of diuresing today we'll place fluids on hold and reassess electrolytes/glucose in a.m. Echocardiogram requested. Continue supportive care, Vapotherm for management of respiratory failure, corrective insulin, and pain medications IV. May require nutritional support if unable to resume oral nutrition soon. Consider Raoul/ CRISTINA for nutrition/meds. PT/OT/speech therapy evaluations when patient able to interact. Status remains very compromised, prognosis uncertain at best Discussed with Dr. Flores, , and nursing. DVT Prophylaxis: SCD's Resuscitation Status: Do Not Resuscitate - Time spent with patient Time with patient PN: 25 minutes - Physician Narrative Physician: Norman Padilla MD Narrative: Date: 12/09/17 Time: 1202 Hospital Course Summary Disclaimer: The visit summary below is not to be considered part of the above Progress Note. Hospital Course: 12/06/17 Admitted overnight with aspiration pneumonia following an episode of hypoglycemia. Nonrebreather mask on presentation for oxygenation. Recurrent nausea and vomiting; subsequently developed bloody emesis and melanotic stools with drop in hemoglobin. Patient is critically ill. She is requiring 100% FiO2 provided by Vapotherm; I' m reluctant to use BiPAP due to agitation and due to risk of additional emesis. Spectrum antibiotics initiated overnight with cefepime and vancomycin-continue same. IV steroids initiated for inflammation associated with aspiration. Chest x-ray will be repeated. 1 unit of blood was transfused this morning due to drop in hemoglobin and respiratory status precludes endoscopic studies at this time. Follow serial hemoglobins, IV PPI twice a day, surgical consultation initiated- discussed with Dr. Flores. Patient is currently nothing by mouth and home medications are on hold due to hemodynamic instability. IV pain medications being utilized. Corrective insulin. 12/07/17 Evidence of clinical improvement present today-patient more alert, minor improvement in oxygenation. Blood cultures negative, urine culture positive Escherichia coli. Cough ineffective to collect sputum culture thus far. Chest x-ray with increased infiltrates bilateral lower lobes-especially on the right. Clindamycin added given high probability of aspiration; discontinue vancomycin. UTI adequately covered with meropenem. Hemoglobin stable following 1 unit packed red blood cells yesterday; respiratory status remains to compromise to consider EGD. Continue supportive care, Vapotherm for management of respiratory failure, corrective insulin, and pain medications IV. PT/OT/speech therapy evaluations in a.m. 12/08/17 Diuresing well spontaneously this morning and oxygen saturation titrated to 70% on Vapotherm; back to 90% this evening. Lasix given to promote further diuresis. Chest x-ray clearly looks worse today, BNP was elevated yesterday. Patient to somnolent for speech therapy to evaluate, oral medications remain on hold Leukocytosis improving-continue meropenem/clindamycin. Unlikely to obtain sputum culture. Pansensitive Escherichia coli UTI-effectively covered with above antibiotics Hemoglobin stable, no further hematemesis or melena; Sachi-Corrigan tear likely. Discussed with Dr. Flores-I believe respiratory status too unstable to contemplate EGD; continues conservative management and reassess later in the week. Blood sugars 183-269 past 24 hours, corrective insulin available. Sodium 150 today, receiving low-volume [id number] goal of diuresing today we'll place fluids on hold and reassess electrolytes/glucose in a.m. Echocardiogram requested. Continue supportive care, Vapotherm for management of respiratory failure, corrective insulin, and pain medications IV. May require nutritional support if unable to resume oral nutrition soon. Consider Dodaohoff/ CRISTINA for nutrition/meds. Remains very compromised, prognosis uncertain at best. 12/09/17 Continue with meropenem and clindamycin to cover aspiration and UTI. Little improvement in CXR with current diuresis (2822cc net output) - Hold IVF for now, possible repeat dose of later today. Continue Solu-Medrol to decrease pulmonary inflammation. Continue O2 support. HGB stable - continue IV Protonix. Therapy able to have patient to side of bed, speech to recheck swallow function. Continue with supportive CCU care.
--- NOTE | 2017-12-09 15:53 | Echocardiogram ---
DATE 12/09/2017 REASON FOR PROCEDURE Congestive heart failure PROCEDURE PERFORMED Study 2D imaging, M-mode and spectral Doppler along with color Doppler was performed. Image quality was adequate. Left ventricle ejection fraction was estimated to be around 55-60%. Grade I diastolic dysfunction is noted. Normal LV dimensions. No regional wall motion abnormalities appreciated. Right ventricle normal in size, normal systolic function. Atria. Left atrium normal in size. Right atrium normal in size. Inferior vena cava less than 2.1 cm and collapsing with respirations. Mitral valve normal in structure, normal function, with mild mitral regurgitation noted. Tricuspid valve normal in structure. There is moderate to severe tricuspid regurgitation noted. Pulmonary artery systolic pressure was estimated to be at least 47 mmHg consistent with moderate pulmonary hypertension. Aortic valve with mild sclerosis noted. Normal function. No valvular stenosis. Trace aortic regurgitation noted. Pulmonary valve normal in structure and function. Mild pulmonary regurgitation noted. Great vessels. Normal aortic root size. Pericardium. No pericardial effusion. DIMENSIONS End diastolic volume 68.3 mL, End systolic volume 42.5 mL. Interventricular septum diameter 3.91 cm. LVID diastolic 3.96 cm. LVPW diastolic 1.13 cm. LVID systolic 3.25 cm. LVPW systolic 1.58 cm. TR Vmax pulmonary gradient 43 mmHg. E/E' 7.0. CONCLUSIONS 1. Preserved systolic function. 2. Moderate pulmonary hypertension. 3. Moderate to severe tricuspid regurgitation. 4. Grade I diastolic dysfunction. MTDD
[2017-12-09] MEDS: SALINE FLUSH 10ml SYRINGE IVF PRN ×3 (16:01→19:25)
[2017-12-09] MEDS ORDERED: FUROSEMIDE 20 MG/2 ML INJECTION IVP ONE (19:01)
[2017-12-09] MEDS ORDERED: D5-1/2NS with KCL 20mEq 1,000 ML IV SCH (22:00)
[2017-12-10] MEDS: ALBUTEROL/IPRATROPIUM 2.5mg-0.5mg/3ml NEB AEROSOL SCH ×7 (00:16→23:28)
[2017-12-10] MEDS: METHYLPREDNISOLONE SOD SUCC 125mg/2ml INJECTION IVP SCH ×3 (01:05→17:04)
[2017-12-10] MEDS: MORPHINE SULFATE 2mg INJECTION IVP PRN ×8 (02:27→23:29)
[2017-12-10] MEDS: SALINE FLUSH 10ml SYRINGE IVF PRN ×3 (02:29→23:30)
[2017-12-10] MEDS: CLINDAMYCIN PB 600 MG/50 ML BAG IV SCH ×3 (02:30→19:11)
[2017-12-10] MEDS: INSULIN ASPART 100unit/ml INJECTION SQ PRN ×4 (04:58→23:30)
[2017-12-10] MEDS: MEROPENEM 500 MG in NS 50 ML IV SCH ×3 (05:48→21:15)
[2017-12-10] MEDS: NS FLUSH BAG 500ml IV PRN (05:48)
[2017-12-10] MEDS: BUDESONIDE INH.SOLN 0.5mg/2ml NEB AEROSOL SCH ×2 (07:55→19:43)
[2017-12-10] MEDS: PANTOPRAZOLE 40 MG INJECTION IVP SCH ×2 (08:57→20:18)
[2017-12-10] MEDS ORDERED: TPN - PHARMACY CONSULT MC ONE (09:36)
--- NOTE | 2017-12-10 10:16 | Progress Note ---
- Date 12/10/17 Subjective: F/U: Acute hypoxic/hypercarbic respiratory failure, Aspiration pneumonia/ pneumonitis, Acute GI bleed-upper Resting in bed. at bedside. More awake and alert. Says 'no' repeatedly. Will follow simple commands - sticks out tongue when asked. Has persistent pain- medications helping some. Oral drive decreases-only able to take small portions of applesauce. Tolerating Vapotherm-able to decrease amount of support slightly. Objective Vital signs: Temperature 96.9 F 12/10/17 09:12 Pulse Rate 84 12/10/17 09:12 Respiratory Rate 19 12/10/17 09:37 Blood Pressure 172/77 H 12/10/17 09:12 Pulse Oximetry 95 12/10/17 09:41 Rhythm: Normal Sinus Rhythm Height/Weight/BMI: Height 1.68 m Weight 57.6 kg Body Mass Index 21.4 - Constitutional Present: mild distress, well nourished, well developed, average body habitus, cooperative. Absent: combative, obtunded - Routine HEENT Exam Head: Present: normocephalic, atraumatic Eye: Present: EOMI, PERRL ENT: Present: mucous membranes moist (Thrush present) - Routine Respiratory Exam Present: decreased breath sounds, distant breath sounds. Absent: rhonchi, stridor - Routine Cardiovascular Exam Present: RRR, no murmur - Routine Abdominal Exam Present: soft, non distended. Absent: normoactive bowel sounds (Decreased) - Routine Extremities Exam Present: no edema, pulses intact. Absent: cyanosis, clubbing - Routine Skin Exam Present: dry, warm - Routine Neurological Exam Present: alert, hearing grossly intact. Absent: normal speech - Routine Psychiatric Exam Present: normal affect, cooperative (Follows simple commands) Results - Labs CBC & Chem 7: 12/10/17 03:59 12/10/17 03:59 Microbiology Results: Microbiology 12/05/17 19:30 Peripheral/Iv Start Blood Culture - Preliminary No Growth After 4 Days 12/05/17 19:16 Peripheral/Iv Start Blood Culture - Preliminary No Growth After 4 Days 12/05/17 20:54 Urine, Cath Caro Urine Culture - Final Escherichia coli 12/05/17 23:40 Urine Legionella Urinary Antigen - Final Assessment and Plan (1) Aspiration pneumonia Current visit: Yes Status: Acute (2) Acute respiratory failure with hypoxia Current visit: Yes Status: Acute Assessment and Plan: Impression Acute hypoxic/hypercarbic respiratory failure Aspiration pneumonia/pneumonitis Acute GI bleed - upper Acute blood loss anemia - 1 unit PRBC 12/06/17 Nausea/vomiting Leukocytosis UTI - Escherichia coli Diabetes mellitus Hypertension Chronic pain Restless leg syndrome Spinal stenosis Hx colon cancer/lymphoma Thickening at colonic anastomosis Hypernatremia (Not POA) CHF Thrush Plan Continue with meropenem and clindamycin to cover aspiration and UTI. Continue Solu-Medrol to decrease pulmonary inflammation. Continue O2 support, weaning Vapotherm as able. Oral drive minimal - will start TPN to give nutritional support. Speech continues to work on swallow. Start Nystatin oral swab for thrush. HGB stable - continue IV Protonix. Check CMP in am due to medication use. Will repeat CBC in am due to pneumonia and GI bleed. Continue with supportive CCU care. Patient still critically ill; making slow gains. Case discussed with CCU nursing and pt's . Time spent with patient care 25 minutes. DVT Prophylaxis: SCD's Resuscitation Status: Do Not Resuscitate - Time spent with patient Time with patient PN: 25 minutes - Physician Narrative Physician: Norman Padilla MD Narrative: Date: 12/10/17 Time: 1013 Hospital Course Summary Disclaimer: The visit summary below is not to be considered part of the above Progress Note. Hospital Course: 12/06/17 Admitted overnight with aspiration pneumonia following an episode of hypoglycemia. Nonrebreather mask on presentation for oxygenation. Recurrent nausea and vomiting; subsequently developed bloody emesis and melanotic stools with drop in hemoglobin. Patient is critically ill. She is requiring 100% FiO2 provided by Vapotherm; I' m reluctant to use BiPAP due to agitation and due to risk of additional emesis. Spectrum antibiotics initiated overnight with cefepime and vancomycin-continue same. IV steroids initiated for inflammation associated with aspiration. Chest x-ray will be repeated. 1 unit of blood was transfused this morning due to drop in hemoglobin and respiratory status precludes endoscopic studies at this time. Follow serial hemoglobins, IV PPI twice a day, surgical consultation initiated- discussed with Dr. Flores. Patient is currently nothing by mouth and home medications are on hold due to hemodynamic instability. IV pain medications being utilized. Corrective insulin. 12/07/17 Evidence of clinical improvement present today-patient more alert, minor improvement in oxygenation. Blood cultures negative, urine culture positive Escherichia coli. Cough ineffective to collect sputum culture thus far. Chest x-ray with increased infiltrates bilateral lower lobes-especially on the right. Clindamycin added given high probability of aspiration; discontinue vancomycin. UTI adequately covered with meropenem. Hemoglobin stable following 1 unit packed red blood cells yesterday; respiratory status remains to compromise to consider EGD. Continue supportive care, Vapotherm for management of respiratory failure, corrective insulin, and pain medications IV. PT/OT/speech therapy evaluations in a.m. 12/08/17 Diuresing well spontaneously this morning and oxygen saturation titrated to 70% on Vapotherm; back to 90% this evening. Lasix given to promote further diuresis. Chest x-ray clearly looks worse today, BNP was elevated yesterday. Patient to somnolent for speech therapy to evaluate, oral medications remain on hold Leukocytosis improving-continue meropenem/clindamycin. Unlikely to obtain sputum culture. Pansensitive Escherichia coli UTI-effectively covered with above antibiotics Hemoglobin stable, no further hematemesis or melena; Sachi-Corrigan tear likely. Discussed with Dr. Flores-I believe respiratory status too unstable to contemplate EGD; continues conservative management and reassess later in the week. Blood sugars 183-269 past 24 hours, corrective insulin available. Sodium 150 today, receiving low-volume [id number] goal of diuresing today we'll place fluids on hold and reassess electrolytes/glucose in a.m. Echocardiogram requested. Continue supportive care, Vapotherm for management of respiratory failure, corrective insulin, and pain medications IV. May require nutritional support if unable to resume oral nutrition soon. Consider Dobbhoff/ NG for nutrition/meds. Remains very compromised, prognosis uncertain at best. 12/09/17 Continue with meropenem and clindamycin to cover aspiration and UTI. Little improvement in CXR with current diuresis (2822cc net output) - Hold IVF for now, possible repeat dose of later today. Continue Solu-Medrol to decrease pulmonary inflammation. Continue O2 support. HGB stable - continue IV Protonix. Therapy able to have patient to side of bed, speech to recheck swallow function. Continue with supportive CCU care. 12/10/17 Continue with meropenem and clindamycin to cover aspiration and UTI. Continue Solu-Medrol to decrease pulmonary inflammation. Continue O2 support, weaning Vapotherm as able. Oral drive minimal - will start TPN to give nutritional support. Speech continues to work on swallow. Start Nystatin oral swab for thrush. HGB stable - continue IV Protonix. Check CMP in am due to medication use. Will repeat CBC in am due to pneumonia and GI bleed. Continue with supportive CCU care. Patient still critically ill; making slow gains.
[2017-12-10] MEDS: NYSTATIN 500,000 units/5 ml ORAL LIQUID PO SCH ×4 (10:50→20:18)
[2017-12-10 12:31] VITALS: BMI 20.5
--- NOTE | 2017-12-10 16:54 | XRay Report ---
Indication: PICC placement PROCEDURE: XR chest post-procedure 1V: Encounter: Initial Comparison: 12/07/2017 Findings: The examination is expiratory nature. There is mild diffuse interstitial pulmonary edema, similar to prior study. Trachea is midline. There is a right arm PICC line with its tip at the right atrial SVC junction. There is moderate overlying EKG lead artifact. Impression: Moderate diffuse interstitial pulmonary edema, similar to prior study. Right arm PICC line appears to be in good position. .
[2017-12-10] MEDS: FAT EMULSION 20% 100 ML IV SCH (17:43)
[2017-12-10] MEDS ORDERED: MULTI-VIT INFUSION 10 ML, MULTI-TRACE ELEMENTS 1 ML, POTASSIUM CHLORIDE INJ 40 MEQ in ... IV SCH (18:00)
[2017-12-10] MEDS ORDERED: FUROSEMIDE 20 MG/2 ML INJECTION IVP ONE (18:24)
[2017-12-11] MEDS: METHYLPREDNISOLONE SOD SUCC 125mg/2ml INJECTION IVP SCH ×3 (00:08→21:24)
[2017-12-11] MEDS: MORPHINE SULFATE 2mg INJECTION IVP PRN ×3 (02:15→09:07)
[2017-12-11] MEDS: CLINDAMYCIN PB 600 MG/50 ML BAG IV SCH ×3 (02:36→19:01)
[2017-12-11] MEDS: INSULIN ASPART 100unit/ml INJECTION SQ PRN ×3 (04:55→17:50)
[2017-12-11] MEDS: SALINE FLUSH 10ml SYRINGE IVF PRN (04:56)
[2017-12-11] MEDS: ALBUTEROL/IPRATROPIUM 2.5mg-0.5mg/3ml NEB AEROSOL SCH ×5 (05:15→19:33)
[2017-12-11] MEDS: MEROPENEM 500 MG in NS 50 ML IV SCH ×3 (05:17→21:30)
[2017-12-11] MEDS: POTASSIUM CHLORIDE PREMIX 10 MEQ/100 ML BAG IV SCH ×2 (06:08→07:27)
--- NOTE | 2017-12-11 07:33 | Pharmacy Consult-TPN/PPN ---
Pharmacy Consult-TPN/PPN - Laboratory Information Chemistry Turbidity < 20 (0-20) 12/11/17 04:23 Sodium 139 MEQ/L (136-146) 12/11/17 04:23 Potassium 3.1 MEQ/L (3.6-5) L 12/11/17 04:23 Chloride 95 MEQ/L (98-107) L 12/11/17 04:23 Carbon Dioxide 37 MEQ/L (22-30) H 12/11/17 04:23 Anion Gap 7 meq/L (5-15) 12/11/17 04:23 BUN 15.0 MG/DL (7-17) 12/11/17 04:23 Creatinine 0.5 mg/dL (0.7-1.2) L 12/11/17 04:23 GFR Calculation 118 12/11/17 04:23 BUN/Creatinine Ratio 30 RATIO (6-26) H 12/11/17 04:23 Glucose 432 MG/DL (65-110) H 12/11/17 04:23 Glucometer 449 mg/dL (65-110) 12/11/17 04:21 Calculated Osmolality 288 MOSM/KG (261-280) H 12/11/17 04:23 Calcium 7.7 MG/DL (8.4-10.2) L 12/11/17 04:23 Phosphorus 3.7 MG/DL (2.5-4.5) 12/07/17 02:55 Magnesium 2.1 MG/DL (1.6-2.3) 12/09/17 03:58 Total Bilirubin 0.40 MG/DL (0.20-1.30) 12/11/17 04:23 Icterus Index < 2 (0-7) 12/11/17 04:23 AST 14 U/L (14-36) 12/11/17 04:23 ALT 15 U/L (1-35) 12/11/17 04:23 Alkaline Phosphatase 65 U/L (38-126) 12/11/17 04:23 NT-Pro-B Natriuret Pep 86234 pg/mL (0-175) H 12/09/17 03:58 Total Protein 5.3 g/dL (6.3-8.2) L 12/11/17 04:23 Albumin 2.8 g/dL (3.5-5.0) L 12/11/17 04:23 Globulin 2.5 G/DL (2.4-3.6) 12/11/17 04:23 Albumin/Globulin Ratio 1.1 RATIO (1.1-2.2) 12/11/17 04:23 Plasma Lactate 1.1 MMOL/L (0.6-2.2) 12/05/17 23:30 Specimen Hemolysis < 15 (0-25) 12/11/17 04:23 Intake and Output 12/10/17 12/11/17 12/12/17 06:59 06:59 06:59 Intake Total 863.333 / 907.296 2780.333 / 1474.333 210.667 / 210.667 Output Total 3200 / 3200 3081 / 3081 Balance -2336.667 / -2336.667 -1606.667 / -1606.667 210.667 / 210.667 Weight 59.7 kg 57.6 kg Intake: IV 863.333 / 001.458 3693.333 / 1474.333 210.667 / 210.667 Clindamycin Pb 600 mg In 50 ml 150 / 150 150 / 150 @ 100 mls/hr IV Q8H [facility]AN[facility] Rx#: [id number] D5-1/2NS with KCL 20mEq 1,000 363.333 / 363.333 558.333 / 558.333 ml @ 50 mls/hr IV .Q20H [facility]ANO Rx# :[id number] Fat Emulsion 20% 100 ml @ 50 100 / 100 mls/hr IV 1600 TANO Rx#: [id number] Lidocaine 1% Inj 10 mg 200 / 200 Potassium Chloride Inj 10 meq In Ns 100 ml @ 100 mls/hr IV . Q1H [facility] Rx#:[id number] Meropenem 500 mg In Ns 50 ml @ 150 / 150 150 / 150 100 mls/hr IV Q8H [facility]ANO Rx#: [id number] Multi-Vit Infusion 10 ml Multi 516.000 / 516.000 110.667 / 110.667 -Trace Elements 1 ml Potassium Chloride Inj 40 meq In TPN - Standard Formula 2,000 ml @ 40 mls/hr IV .Q24H [facility]ANO Rx#: [id number] Potassium Chloride Premix 10 100.000 / 100.000 meq In 100 ml @ 100 mls/hr IV Q1H [facility]ANO Rx#:[id number] Output: Urine Amount (Catheter) 3200 / 3200 3081 / 3081 Other: Urine Appearance Clear Clear Urine Color Yellow Yellow Urine Odor Foul - Consult Information Will change formulation with today's bag to a low carbohydrate TPN in light of this morning's high blood sugar. This formula will also cause serum chloride to mildly increase and cause the CO2 to decrease. 40 meq of extra potassium chloride will also be added into the bag. Will continue to monitor. Thank you.
[2017-12-11] MEDS: BUDESONIDE INH.SOLN 0.5mg/2ml NEB AEROSOL SCH ×2 (07:43→19:33)
--- NOTE | 2017-12-11 08:23 | XRay Report ---
Indication: f/u Procedure: XR chest 1V: Encounter: Subsequent Comparison: 12/10/2017 Technique: A single AP view of the chest was obtained. Findings: Life support devices: Unchanged right PICC. Lungs and airways: Low lung volumes. No focal airspace consolidation. Improved pulmonary edema. Pleura: No pleural effusion or pneumothorax. Heart and mediastinum: The cardiomediastinal silhouette appears unchanged. Osseous structures and soft tissues: No acute osseous abnormality is seen. Impression: Improved pulmonary edema with unchanged right PICC. .
[2017-12-11] MEDS: PANTOPRAZOLE 40 MG INJECTION IVP SCH ×2 (08:51→21:24)
[2017-12-11] MEDS: NYSTATIN 500,000 units/5 ml ORAL LIQUID PO SCH ×4 (09:08→21:23)
[2017-12-11] MEDS ORDERED: INSULIN GLARGINE 100unit/ml INJECTION SQ ONE (09:23)
[2017-12-11] MEDS ORDERED: INSULIN ASPART 100unit/ml INJECTION SQ SCH (09:30)
[2017-12-11] MEDS: DULOXETINE 30 MG CAPSULE PO SCH (13:32)
[2017-12-11] MEDS: GABAPENTIN 300 MG CAPSULE PO SCH ×3 (13:33→21:23)
--- NOTE | 2017-12-11 13:36 | Progress Note ---
- Date 12/11/17 Subjective: F/U: Acute hypoxic/hypercarbic respiratory failure, Aspiration pneumonia/ pneumonitis, Acute GI bleed-upper Resting in bed. Eyes open. Says "No, no, no." Resists attempts to feed, but swallow function looks okay. Has persistent pain and restlessness. O2 needs with decrease. BP stable (increases when agitated). Sugars with elevation since TPN started. Objective Vital signs: Temperature 98.7 F 12/11/17 12:00 Pulse Rate 62 12/11/17 12:30 Respiratory Rate 13 12/11/17 12:30 Blood Pressure 161/73 H 12/11/17 12:00 Pulse Oximetry 97 12/11/17 12:30 Rhythm: Normal Sinus Rhythm Height/Weight/BMI: Height 1.68 m Weight 55.9 kg Body Mass Index 20.5 - Constitutional Present: well nourished, well developed, average body habitus, thin, other ( Restless) - Routine HEENT Exam Head: Present: normocephalic, atraumatic Eye: Present: EOMI ENT: Present: mucous membranes moist - Routine Respiratory Exam Present: decreased breath sounds, wheezes, crackles, distant breath sounds. Absent: respiratory distress - Routine Cardiovascular Exam Present: RRR, no murmur - Routine Abdominal Exam Present: soft, non distended, non tender. Absent: normoactive bowel sounds ( decreased) - Routine Extremities Exam Present: edema (trace BLE). Absent: cyanosis, clubbing - Routine Musculoskeletal Exam Musculoskeletal: Present: no clubbing or cyanosis - Routine Skin Exam Present: dry, warm - Routine Neurological Exam Present: alert, altered mental status, moving all extremities, vision grossly intact, hearing grossly intact - Routine Psychiatric Exam Present: anxious, agitated (Mild) Results - Labs CBC & Chem 7: 12/11/17 04:23 12/11/17 04:23 Microbiology Results: Microbiology 12/05/17 19:16 Peripheral/Iv Start Blood Culture - Final No Growth After 5 Days 12/05/17 19:30 Peripheral/Iv Start Blood Culture - Final No Growth After 5 Days 12/05/17 20:54 Urine, Cath Caro Urine Culture - Final Escherichia coli 12/05/17 23:40 Urine Legionella Urinary Antigen - Final Assessment and Plan (1) Aspiration pneumonia Current visit: Yes Status: Acute (2) Acute respiratory failure with hypoxia Current visit: Yes Status: Acute Assessment and Plan: Impression Acute hypoxic/hypercarbic respiratory failure Aspiration pneumonia/pneumonitis Acute GI bleed - upper Acute blood loss anemia - 1 unit PRBC 12/06/17 Nausea/vomiting Leukocytosis UTI - Escherichia coli Diabetes mellitus Hypertension Chronic pain Restless leg syndrome Spinal stenosis Hx colon cancer/lymphoma Thickening at colonic anastomosis Hypernatremia (Not POA) CHF Thrush Plan Continue with meropenem and clindamycin to cover aspiration and UTI. Can decrease Solu-Medrol to 62.5mg BID. Continue O2 support, weaning Vapotherm as able. TPN for nutritional support. Add Lantus to help glycemic control. Will try restarting Cymbalta, Neurontin, Requip, and [place] to help pain. Speech working with swallow - pt resistant with eating. Check BMP, Mg, and Phos in am due to medication use and TPN. Will repeat CBC in am due to pneumonia and anemia. Continue with supportive CCU care. Patient still critically ill; making slow gains. Case discussed with CCU nursing. Time spent with patient care 25 minutes. DVT Prophylaxis: SCD's - Physician Narrative Narrative: Date: 12/11/17 Time: 1333 Hospital Course Summary Disclaimer: The visit summary below is not to be considered part of the above Progress Note. Hospital Course: 12/06/17 Admitted overnight with aspiration pneumonia following an episode of hypoglycemia. Nonrebreather mask on presentation for oxygenation. Recurrent nausea and vomiting; subsequently developed bloody emesis and melanotic stools with drop in hemoglobin. Patient is critically ill. She is requiring 100% FiO2 provided by Vapotherm; I' m reluctant to use BiPAP due to agitation and due to risk of additional emesis. Spectrum antibiotics initiated overnight with cefepime and vancomycin-continue same. IV steroids initiated for inflammation associated with aspiration. Chest x-ray will be repeated. 1 unit of blood was transfused this morning due to drop in hemoglobin and respiratory status precludes endoscopic studies at this time. Follow serial hemoglobins, IV PPI twice a day, surgical consultation initiated- discussed with Dr. Flores. Patient is currently nothing by mouth and home medications are on hold due to hemodynamic instability. IV pain medications being utilized. Corrective insulin. 12/07/17 Evidence of clinical improvement present today-patient more alert, minor improvement in oxygenation. Blood cultures negative, urine culture positive Escherichia coli. Cough ineffective to collect sputum culture thus far. Chest x-ray with increased infiltrates bilateral lower lobes-especially on the right. Clindamycin added given high probability of aspiration; discontinue vancomycin. UTI adequately covered with meropenem. Hemoglobin stable following 1 unit packed red blood cells yesterday; respiratory status remains to compromise to consider EGD. Continue supportive care, Vapotherm for management of respiratory failure, corrective insulin, and pain medications IV. PT/OT/speech therapy evaluations in a.m. 12/08/17 Diuresing well spontaneously this morning and oxygen saturation titrated to 70% on Vapotherm; back to 90% this evening. Lasix given to promote further diuresis. Chest x-ray clearly looks worse today, BNP was elevated yesterday. Patient to somnolent for speech therapy to evaluate, oral medications remain on hold Leukocytosis improving-continue meropenem/clindamycin. Unlikely to obtain sputum culture. Pansensitive Escherichia coli UTI-effectively covered with above antibiotics Hemoglobin stable, no further hematemesis or melena; Sachi-Corrigan tear likely. Discussed with Dr. Flores-I believe respiratory status too unstable to contemplate EGD; continues conservative management and reassess later in the week. Blood sugars 183-269 past 24 hours, corrective insulin available. Sodium 150 today, receiving low-volume [id number] goal of diuresing today we'll place fluids on hold and reassess electrolytes/glucose in a.m. Echocardiogram requested. Continue supportive care, Vapotherm for management of respiratory failure, corrective insulin, and pain medications IV. May require nutritional support if unable to resume oral nutrition soon. Consider Dohilary/ CRISTINA for nutrition/meds. Remains very compromised, prognosis uncertain at best. 12/09/17 Continue with meropenem and clindamycin to cover aspiration and UTI. Little improvement in CXR with current diuresis (2822cc net output) - Hold IVF for now, possible repeat dose of later today. Continue Solu-Medrol to decrease pulmonary inflammation. Continue O2 support. HGB stable - continue IV Protonix. Therapy able to have patient to side of bed, speech to recheck swallow function. Continue with supportive CCU care. 12/10/17 Continue with meropenem and clindamycin to cover aspiration and UTI. Continue Solu-Medrol to decrease pulmonary inflammation. Continue O2 support, weaning Vapotherm as able. Oral drive minimal - will start TPN to give nutritional support. Speech continues to work on swallow. Start Nystatin oral swab for thrush. HGB stable - continue IV Protonix. Check CMP in am due to medication use. Will repeat CBC in am due to pneumonia and GI bleed. Continue with supportive CCU care. Patient still critically ill; making slow gains. 12/11/17 Continue with meropenem and clindamycin to cover aspiration and UTI. Can decrease Solu-Medrol to 62.5mg BID. Continue O2 support, weaning Vapotherm as able. TPN for nutritional support. Add Lantus to help glycemic control. Will try restarting Cymbalta, Neurontin, Requip, and [place] to help pain. Speech working with swallow - pt resistant with eating.
[2017-12-11] MEDS: SODIUM ACETATE IV SCH (13:56)
[2017-12-11] MEDS: [UNRECOGNIZED DRUG - OTHER] IV SCH (13:56)
[2017-12-11] MEDS: SODIUM CHLORIDE IV SCH (13:56)
[2017-12-11] MEDS: POTASSIUM CHLORIDE IV SCH (13:56)
[2017-12-11] MEDS: HYDROCODONE/APAP 7.5 MG/325 MG TABLET PO SCH ×4 (14:40→21:23)
[2017-12-11] MEDS ORDERED: ALBUTEROL/IPRATROPIUM 2.5mg-0.5mg/3ml NEB AEROSOL PRN (16:23)
[2017-12-11] MEDS: FAT EMULSION 20% 100 ML IV SCH (16:23)
[2017-12-11] MEDS: ROPINIROLE 0.5 MG TABLET PO SCH (21:24)
[2017-12-12] MEDS ORDERED: INSULIN GLARGINE 100unit/ml INJECTION SQ SCH (01:00)
[2017-12-12] MEDS ORDERED: INSULIN ASPART 100unit/ml INJECTION SQ ONE (01:15)
[2017-12-12] MEDS: MORPHINE SULFATE 2mg INJECTION IVP PRN ×2 (01:59→22:49)
[2017-12-12] MEDS: CLINDAMYCIN PB 600 MG/50 ML BAG IV SCH ×3 (03:18→19:36)
[2017-12-12] MEDS: ALBUTEROL/IPRATROPIUM 2.5mg-0.5mg/3ml NEB AEROSOL SCH ×4 (06:19→19:14)
[2017-12-12] MEDS: BUDESONIDE INH.SOLN 0.5mg/2ml NEB AEROSOL SCH ×2 (06:19→19:14)
[2017-12-12] MEDS: MEROPENEM 500 MG in NS 50 ML IV SCH ×3 (06:30→22:24)
[2017-12-12] MEDS: INSULIN ASPART 100unit/ml INJECTION SQ PRN (06:35)
--- NOTE | 2017-12-12 07:21 | Pharmacy Consult-TPN/PPN ---
Pharmacy Consult-TPN/PPN - Laboratory Information Chemistry Turbidity < 20 (0-20) 12/12/17 04:31 Sodium 141 MEQ/L (136-146) 12/12/17 04:31 Potassium 3.5 MEQ/L (3.6-5) L 12/12/17 04:31 Chloride 99 MEQ/L (98-107) 12/12/17 04:31 Carbon Dioxide 36 MEQ/L (22-30) H 12/12/17 04:31 Anion Gap 6 meq/L (5-15) 12/12/17 04:31 BUN 17.0 MG/DL (7-17) 12/12/17 04:31 Creatinine 0.5 mg/dL (0.7-1.2) L 12/12/17 04:31 Estimated Creat Clear 38 mL/min (>50) 12/12/17 04:31 GFR Calculation 118 mL/min (>60) 12/12/17 04:31 BUN/Creatinine Ratio 34 RATIO (6-26) H 12/12/17 04:31 Glucose 294 MG/DL (65-110) H 12/12/17 04:31 Glucometer 318 mg/dL (65-110) 12/12/17 06:32 Calculated Osmolality 284 MOSM/KG (261-280) H 12/12/17 04:31 Calcium 8.0 MG/DL (8.4-10.2) L 12/12/17 04:31 Phosphorus 2.8 MG/DL (2.5-4.5) 12/12/17 04:31 Magnesium 2.2 MG/DL (1.6-2.3) 12/12/17 04:31 Total Bilirubin 0.40 MG/DL (0.20-1.30) 12/11/17 04:23 Icterus Index < 2 (0-7) 12/12/17 04:31 AST 14 U/L (14-36) 12/11/17 04:23 ALT 15 U/L (1-35) 12/11/17 04:23 Alkaline Phosphatase 65 U/L (38-126) 12/11/17 04:23 NT-Pro-B Natriuret Pep 05579 pg/mL (0-175) H 12/09/17 03:58 Total Protein 5.3 g/dL (6.3-8.2) L 12/11/17 04:23 Albumin 2.8 g/dL (3.5-5.0) L 12/11/17 04:23 Globulin 2.5 G/DL (2.4-3.6) 12/11/17 04:23 Albumin/Globulin Ratio 1.1 RATIO (1.1-2.2) 12/11/17 04:23 Plasma Lactate 1.1 MMOL/L (0.6-2.2) 12/05/17 23:30 Specimen Hemolysis < 15 (0-25) 12/12/17 04:31 Intake and Output 12/11/17 12/12/17 12/13/17 06:59 06:59 06:59 Intake Total 1474.333 / 2111.996 8559.667 / 1583.667 Output Total 3081 / 3081 2280 / 2280 65 / 65 Balance -1606.667 / -1606.667 -696.333 / -696.333 -65 / -65 Weight 57.6 kg 55.9 kg Intake: IV 1474.333 / 0973.709 9299.667 / 1583.667 Clindamycin Pb 600 mg In 50 ml 150 / 150 150 / 150 @ 100 mls/hr IV Q8H [facility] Rx#: [id number] D5-1/2NS with KCL 20mEq 1,000 558.333 / 558.333 ml @ 50 mls/hr IV .Q20H [facility] Rx# :[id number] Fat Emulsion 20% 100 ml @ 50 100 / 100 100 / 100 mls/hr IV 1600 [facility] Rx#: [id number] Meropenem 500 mg In Ns 50 ml @ 150 / 150 100 / 100 100 mls/hr IV Q8H [facility] Rx#: [id number] Multi-Vit Infusion 10 ml Multi 516.000 / 516.000 110.667 / 110.667 -Trace Elements 1 ml Potassium Chloride Inj 40 meq In TPN - Standard Formula 2,000 ml @ 40 mls/hr IV .Q24H [facility] Rx#: [id number] Potassium Chloride Premix 10 200.000 / 200.000 meq In 100 ml @ 100 mls/hr IV Q1H [facility] Rx#:[id number] Sodium Chloride Conc 40 meq 923 / 923 Sodium Acetate 40 meq Potassium Chloride Inj 80 meq POTASSIUM PHOSPHATE (mEq) 40 meq Magnesium Sulfate Inj 16 meq Calcium Gluconate 9.3 meq Multi -Vit Infusion 10 ml Multi- Trace Elements 1 ml In TPN - Custom Low Carb 2,000 ml @ 60 mls/hr IV .Q24H [facility] Rx#: [id number] Output: Urine Amount (Catheter) 3081 / 3081 2280 / 2280 65 / 65 Other: Urine Appearance Clear Clear Clear Urine Color Yellow Yellow Yellow Urine Odor Normal - Consult Information Serum glucose is trending down and potassium is now in normal range. Will continue same formula. Thank you.
[2017-12-12] MEDS: PANTOPRAZOLE 40 MG INJECTION IVP SCH ×2 (08:28→22:08)
[2017-12-12] MEDS: METHYLPREDNISOLONE SOD SUCC 125mg/2ml INJECTION IVP SCH (08:28)
[2017-12-12] MEDS: GABAPENTIN 300 MG CAPSULE PO SCH ×4 (10:24→22:09)
[2017-12-12] MEDS: DULOXETINE 30 MG CAPSULE PO SCH (10:24)
[2017-12-12] MEDS: ROPINIROLE 0.5 MG TABLET PO SCH ×2 (10:25→22:02)
[2017-12-12] MEDS: HYDROCODONE/APAP 7.5 MG/325 MG TABLET PO SCH ×5 (10:25→22:00)
[2017-12-12] MEDS: NYSTATIN 500,000 units/5 ml ORAL LIQUID PO SCH ×4 (10:25→22:11)
--- NOTE | 2017-12-12 10:52 | Progress Note ---
- Date 12/12/17 Subjective: F/U: Acute hypoxic/hypercarbic respiratory failure, Aspiration pneumonia/ pneumonitis, Acute GI bleed-upper Much more awake and alert. Communicating well. Has been able to swallow meds well. No appetite. Not reporting nausea or ab pain. No flatus. Breathing feeling okay-occasional cough, but not feeling congested or having pain with breathing. No chest pressure. Chronic pain doing okay. Nursing reports better night-MS and lorazepam given once. Oral pain medications helping. Does feel very weak in general. Objective Vital signs: Temperature 97.6 F 12/11/17 19:53 Pulse Rate 58 L 12/12/17 08:00 Respiratory Rate 22 12/12/17 10:16 Blood Pressure 148/72 H 12/12/17 07:00 Pulse Oximetry 96 12/12/17 10:16 Rhythm: Normal Sinus Rhythm Height/Weight/BMI: Height 1.68 m Weight 55.9 kg Body Mass Index 20.5 - Constitutional Present: well nourished, well developed, cooperative. Absent: agitated, somnolent, obtunded - Routine HEENT Exam Head: Present: normocephalic, atraumatic Eye: Present: EOMI ENT: Present: mucous membranes moist - Routine Respiratory Exam Present: decreased breath sounds. Absent: respiratory distress, wheezes, crackles - Routine Cardiovascular Exam Present: RRR, no murmur - Routine Abdominal Exam Present: soft, non distended, non tender. Absent: normoactive bowel sounds ( Decreased), guarding - Routine Extremities Exam Present: no edema, pulses intact. Absent: cyanosis, clubbing - Routine Musculoskeletal Exam Musculoskeletal: Present: no clubbing or cyanosis - Routine Skin Exam Present: dry, warm - Routine Neurological Exam Present: alert, oriented X3, CN II-XII intact, moving all extremities, vision grossly intact, hearing grossly intact, normal speech. Absent: altered mental status - Routine Psychiatric Exam Present: normal affect, normal thought process, cooperative Results - Labs CBC & Chem 7: 12/12/17 04:31 12/12/17 04:31 Microbiology Results: Microbiology 12/05/17 19:16 Peripheral/Iv Start Blood Culture - Final No Growth After 5 Days 12/05/17 19:30 Peripheral/Iv Start Blood Culture - Final No Growth After 5 Days 12/05/17 20:54 Urine, Cath Caro Urine Culture - Final Escherichia coli 12/05/17 23:40 Urine Legionella Urinary Antigen - Final Assessment and Plan (1) Aspiration pneumonia Current visit: Yes Status: Acute (2) Acute respiratory failure with hypoxia Current visit: Yes Status: Acute Assessment and Plan: Impression Acute hypoxic/hypercarbic respiratory failure Aspiration pneumonia/pneumonitis Acute GI bleed - upper Acute blood loss anemia - 1 unit PRBC 12/06/17 Nausea/vomiting Leukocytosis UTI - Escherichia coli Diabetes mellitus Hypertension Chronic pain Restless leg syndrome Spinal stenosis Hx colon cancer/lymphoma Thickening at colonic anastomosis Hypernatremia (Not POA) CHF Thrush Plan Significant improvement in mental status from yesterday - awake/alert and communicating well. Continue with meropenem and clindamycin to cover aspiration and UTI. Will stop Solu-Medrol after tonight's last dose. O2 needs decreasing - weaned to NC at 5L. Continue TPN for nutritional support as oral drive decreased. Lantus 30 units ordered overnight by Telehospitalist. Will decrease to 15 units as transitioning off steroids. Continue PT/OT/Speech to maximize functional status. Diet being advance per speech recommendations. Check BMP, Mg, and Phos in am due to medication use and TPN. Will repeat CBC in am due to pneumonia and anemia. Continue with supportive CCU care - clinically improving. Possible transfer to medical floor soon if continues to make gains. Case discussed with CM & CCU nursing. Time spent with patient care 25 minutes. DVT Prophylaxis: SCD's GI Prophylaxis: Protonix Resuscitation Status: Do Not Resuscitate - Time spent with patient Time with patient PN: 25 minutes - Physician Narrative Physician: Norman Padilla MD Narrative: Date: 12/12/17 Time: 1047 Hospital Course Summary Disclaimer: The visit summary below is not to be considered part of the above Progress Note. Hospital Course: 12/06/17 Admitted overnight with aspiration pneumonia following an episode of hypoglycemia. Nonrebreather mask on presentation for oxygenation. Recurrent nausea and vomiting; subsequently developed bloody emesis and melanotic stools with drop in hemoglobin. Patient is critically ill. She is requiring 100% FiO2 provided by Vapotherm; I' m reluctant to use BiPAP due to agitation and due to risk of additional emesis. Spectrum antibiotics initiated overnight with cefepime and vancomycin-continue same. IV steroids initiated for inflammation associated with aspiration. Chest x-ray will be repeated. 1 unit of blood was transfused this morning due to drop in hemoglobin and respiratory status precludes endoscopic studies at this time. Follow serial hemoglobins, IV PPI twice a day, surgical consultation initiated- discussed with Dr. Flores. Patient is currently nothing by mouth and home medications are on hold due to hemodynamic instability. IV pain medications being utilized. Corrective insulin. 12/07/17 Evidence of clinical improvement present today-patient more alert, minor improvement in oxygenation. Blood cultures negative, urine culture positive Escherichia coli. Cough ineffective to collect sputum culture thus far. Chest x-ray with increased infiltrates bilateral lower lobes-especially on the right. Clindamycin added given high probability of aspiration; discontinue vancomycin. UTI adequately covered with meropenem. Hemoglobin stable following 1 unit packed red blood cells yesterday; respiratory status remains to compromise to consider EGD. Continue supportive care, Vapotherm for management of respiratory failure, corrective insulin, and pain medications IV. PT/OT/speech therapy evaluations in a.m. 12/08/17 Diuresing well spontaneously this morning and oxygen saturation titrated to 70% on Vapotherm; back to 90% this evening. Lasix given to promote further diuresis. Chest x-ray clearly looks worse today, BNP was elevated yesterday. Patient to somnolent for speech therapy to evaluate, oral medications remain on hold Leukocytosis improving-continue meropenem/clindamycin. Unlikely to obtain sputum culture. Pansensitive Escherichia coli UTI-effectively covered with above antibiotics Hemoglobin stable, no further hematemesis or melena; Sachi-Corrigan tear likely. Discussed with Dr. Flores-I believe respiratory status too unstable to contemplate EGD; continues conservative management and reassess later in the week. Blood sugars 183-269 past 24 hours, corrective insulin available. Sodium 150 today, receiving low-volume C1OV-eisrs goal of diuresing today we'll place fluids on hold and reassess electrolytes/glucose in a.m. Echocardiogram requested. Continue supportive care, Vapotherm for management of respiratory failure, corrective insulin, and pain medications IV. May require nutritional support if unable to resume oral nutrition soon. Consider Dobbhoff/ NG for nutrition/meds. Remains very compromised, prognosis uncertain at best. 12/09/17 Continue with meropenem and clindamycin to cover aspiration and UTI. Little improvement in CXR with current diuresis (2822cc net output) - Hold IVF for now, possible repeat dose of later today. Continue Solu-Medrol to decrease pulmonary inflammation. Continue O2 support. HGB stable - continue IV Protonix. Therapy able to have patient to side of bed, speech to recheck swallow function. 12/10/17 Continue with meropenem and clindamycin to cover aspiration and UTI. Continue Solu-Medrol to decrease pulmonary inflammation. Continue O2 support, weaning Vapotherm as able. Oral drive minimal - will start TPN to give nutritional support. Speech continues to work on swallow. Start Nystatin oral swab for thrush. HGB stable - continue IV Protonix. Check CMP in am due to medication use. Will repeat CBC in am due to pneumonia and GI bleed. Continue with supportive CCU care. Patient still critically ill; making slow gains. 12/11/17 Continue with meropenem and clindamycin to cover aspiration and UTI. Can decrease Solu-Medrol to 62.5mg BID. Continue O2 support, weaning Vapotherm as able. TPN for nutritional support. Add Lantus to help glycemic control. Will try restarting Cymbalta, Neurontin, Requip, and [place] to help pain. Speech working with swallow - pt resistant with eating. 12/12/17 Significant improvement in mental status from yesterday - awake/alert and communicating well. Continue with meropenem and clindamycin to cover aspiration and UTI. Will stop Solu-Medrol after tonight's last dose. O2 needs decreasing - weaned to NC at 5L. Continue TPN for nutritional support as oral drive decreased. Lantus 30 units ordered overnight by Telehospitalist. Will decrease to 15 units as transitioning off steroids. Continue PT/OT/Speech to maximize functional status. Diet being advance per speech recommendations.
[2017-12-12] MEDS ORDERED: BISACODYL 10 MG SUPPOSITORY RECTALLY PRN (11:06)
[2017-12-12] MEDS: INSULIN REGULAR, HUMAN 100 UNIT/ML INJECTION SQ PRN (12:08)
[2017-12-12] MEDS: POTASSIUM CHLORIDE IV SCH (15:25)
[2017-12-12] MEDS: SODIUM CHLORIDE IV SCH (15:25)
[2017-12-12] MEDS: SODIUM ACETATE IV SCH (15:25)
[2017-12-12] MEDS: [UNRECOGNIZED DRUG - OTHER] IV SCH (15:25)
[2017-12-12] MEDS: FAT EMULSION 20% 100 ML IV SCH (15:45)
[2017-12-12] MEDS: INSULIN REGULAR, HUMAN 100 UNIT/ML INJECTION SQ SCH (19:34)
[2017-12-12] MEDS: INSULIN GLARGINE 100unit/ml INJECTION SQ SCH (22:15)
[2017-12-12] MEDS ORDERED: INSULIN REGULAR, HUMAN 100 UNIT/ML INJECTION SQ ONE (22:39)
[2017-12-13] MEDS: CLINDAMYCIN PB 600 MG/50 ML BAG IV SCH ×3 (03:01→18:52)
[2017-12-13] MEDS: MEROPENEM 500 MG in NS 50 ML IV SCH ×3 (05:14→22:14)
[2017-12-13] MEDS: INSULIN REGULAR, HUMAN 100 UNIT/ML INJECTION SQ PRN ×3 (06:25→18:53)
[2017-12-13] MEDS: ALBUTEROL/IPRATROPIUM 2.5mg-0.5mg/3ml NEB AEROSOL SCH ×4 (06:30→19:14)
[2017-12-13] MEDS: BUDESONIDE INH.SOLN 0.5mg/2ml NEB AEROSOL SCH ×2 (06:30→19:14)
[2017-12-13] MEDS: MORPHINE SULFATE 2mg INJECTION IVP PRN ×2 (07:15→23:16)
--- NOTE | 2017-12-13 08:17 | Pharmacy Consult-TPN/PPN ---
Pharmacy Consult-TPN/PPN - Laboratory Information Chemistry Turbidity < 20 (0-20) 12/13/17 04:10 Sodium 141 MEQ/L (136-146) 12/13/17 04:10 Potassium 3.6 MEQ/L (3.6-5) 12/13/17 04:10 Chloride 102 MEQ/L (98-107) 12/13/17 04:10 Carbon Dioxide 35 MEQ/L (22-30) H 12/13/17 04:10 Anion Gap 4 meq/L (5-15) L 12/13/17 04:10 BUN 23.0 MG/DL (7-17) H 12/13/17 04:10 Creatinine 0.5 mg/dL (0.7-1.2) L 12/13/17 04:10 Estimated Creat Clear 38 mL/min (>50) 12/13/17 04:10 GFR Calculation 118 mL/min (>60) 12/13/17 04:10 BUN/Creatinine Ratio 46 RATIO (6-26) H 12/13/17 04:10 Glucose 145 MG/DL (65-110) H 12/13/17 04:10 Glucometer 199 mg/dL (65-110) 12/13/17 06:21 Calculated Osmolality 278 MOSM/KG (261-280) 12/13/17 04:10 Calcium 8.2 MG/DL (8.4-10.2) L 12/13/17 04:10 Phosphorus 2.8 MG/DL (2.5-4.5) 12/12/17 04:31 Magnesium 2.2 MG/DL (1.6-2.3) 12/12/17 04:31 Total Bilirubin 0.40 MG/DL (0.20-1.30) 12/11/17 04:23 Icterus Index < 2 (0-7) 12/13/17 04:10 AST 14 U/L (14-36) 12/11/17 04:23 ALT 15 U/L (1-35) 12/11/17 04:23 Alkaline Phosphatase 65 U/L (38-126) 12/11/17 04:23 NT-Pro-B Natriuret Pep 45685 pg/mL (0-175) H 12/09/17 03:58 Total Protein 5.3 g/dL (6.3-8.2) L 12/11/17 04:23 Albumin 2.8 g/dL (3.5-5.0) L 12/11/17 04:23 Globulin 2.5 G/DL (2.4-3.6) 12/11/17 04:23 Albumin/Globulin Ratio 1.1 RATIO (1.1-2.2) 12/11/17 04:23 Plasma Lactate 1.1 MMOL/L (0.6-2.2) 12/05/17 23:30 Specimen Hemolysis < 15 (0-25) 12/13/17 04:10 Intake and Output 12/12/17 12/13/17 12/14/17 06:59 06:59 06:59 Intake Total 1583.667 / 9597.544 7298 / 1870 Output Total 2280 / 2280 1426 / 1426 Balance -696.333 / -696.333 444 / 444 Weight 55.9 kg 55.2 kg Intake: IV 1583.667 / 3620.388 9394 / 1790 Clindamycin Pb 600 mg In 50 ml 150 / 150 150 / 150 @ 100 mls/hr IV Q8H [facility] Rx#: [id number] Fat Emulsion 20% 100 ml @ 50 100 / 100 mls/hr IV 1600 [facility] Rx#: [id number] Meropenem 500 mg In Ns 50 ml @ 100 / 100 200 / 200 100 mls/hr IV Q8H [facility] Rx#: [id number] Multi-Vit Infusion 10 ml Multi 110.667 / 110.667 -Trace Elements 1 ml Potassium Chloride Inj 40 meq In TPN - Standard Formula 2,000 ml @ 40 mls/hr IV .Q24H [facility] Rx#: [id number] Potassium Chloride Premix 10 200.000 / 200.000 meq In 100 ml @ 100 mls/hr IV Q1H [facility] Rx#:[id number] Sodium Chloride Conc 40 meq 923 / 923 1440 / 1440 Sodium Acetate 40 meq Potassium Chloride Inj 80 meq POTASSIUM PHOSPHATE (mEq) 40 meq Magnesium Sulfate Inj 16 meq Calcium Gluconate 9.3 meq Multi -Vit Infusion 10 ml Multi- Trace Elements 1 ml In TPN - Custom Low Carb 2,000 ml @ 60 mls/hr IV .Q24H [facility] Rx#: [id number] Oral 80 / 80 Output: Urine Amount (Catheter) 2280 / 2280 1426 / 1426 Other: Urine Appearance Clear Clear Urine Color Yellow Yellow Urine Odor Normal Stool Characteristics Tarry Stool Color Black Stool Consistency Soft Size of Bowel Movement Moderate # Bowel Movements 1 - Consult Information Electrolytes remain stable so we will continue same TPN formula and rate. Thanks
[2017-12-13] MEDS: HYDROCODONE/APAP 7.5 MG/325 MG TABLET PO SCH ×5 (08:26→20:33)
[2017-12-13] MEDS: DULOXETINE 30 MG CAPSULE PO SCH (08:27)
[2017-12-13] MEDS: NYSTATIN 500,000 units/5 ml ORAL LIQUID PO SCH ×4 (08:27→20:33)
[2017-12-13] MEDS: GABAPENTIN 300 MG CAPSULE PO SCH ×4 (08:27→20:33)
[2017-12-13] MEDS: ROPINIROLE 0.5 MG TABLET PO SCH ×2 (08:27→21:10)
[2017-12-13] MEDS: PANTOPRAZOLE 40 MG INJECTION IVP SCH ×2 (08:27→20:34)
--- NOTE | 2017-12-13 09:57 | Progress Note ---
- Date 12/13/17 Subjective: F/U: Acute hypoxic/hypercarbic respiratory failure, Aspiration pneumonia/ pneumonitis, Acute GI bleed-upper Sitting up in chair this morning. Oral intake improving. Not reporting pain with swallow or nausea. Has passed stool. Reports breathing okay-not feeling congested or cough, but slight labor to breathing. No palpitations. Chronic pain overall controlled well. Objective Vital signs: Temperature 98.1 F 12/13/17 04:00 Pulse Rate 105 H 12/13/17 08:00 Respiratory Rate 23 12/13/17 07:15 Blood Pressure 127/59 12/13/17 06:00 Pulse Oximetry 94 12/13/17 06:30 Rhythm: Normal Sinus Rhythm Height/Weight/BMI: Height 1.68 m Weight 56.7 kg Body Mass Index 20.5 - Constitutional Present: well nourished, well developed, average body habitus, cooperative. Absent: agitated, somnolent, obtunded - Routine HEENT Exam Head: Present: normocephalic, atraumatic Eye: Present: EOMI, PERRL ENT: Present: mucous membranes moist - Routine Respiratory Exam Present: decreased breath sounds. Absent: respiratory distress, wheezes, crackles - Routine Cardiovascular Exam Present: RRR, no murmur - Routine Abdominal Exam Present: soft, normoactive bowel sounds, non distended, non tender - Routine Extremities Exam Present: pulses intact. Absent: cyanosis, clubbing Comments: SCD in place - Routine Skin Exam Present: dry, warm - Routine Neurological Exam Present: alert, CN II-XII intact, moving all extremities, vision grossly intact , hearing grossly intact, normal speech. Absent: altered mental status - Routine Psychiatric Exam Present: normal affect, normal thought process, cooperative. Absent: anxious, agitated Results - Labs CBC & Chem 7: 12/13/17 04:10 12/13/17 04:10 Microbiology Results: Microbiology 12/05/17 19:16 Peripheral/Iv Start Blood Culture - Final No Growth After 5 Days 12/05/17 19:30 Peripheral/Iv Start Blood Culture - Final No Growth After 5 Days 12/05/17 20:54 Urine, Cath Caro Urine Culture - Final Escherichia coli 12/05/17 23:40 Urine Legionella Urinary Antigen - Final Assessment and Plan (1) Aspiration pneumonia Current visit: Yes Status: Acute (2) Acute respiratory failure with hypoxia Current visit: Yes Status: Acute Assessment and Plan: Impression Acute hypoxic/hypercarbic respiratory failure Aspiration pneumonia/pneumonitis Acute GI bleed - upper Acute blood loss anemia - 1 unit PRBC 12/06/17 Nausea/vomiting Leukocytosis UTI - Escherichia coli Diabetes mellitus Hypertension Chronic pain Restless leg syndrome Spinal stenosis Hx colon cancer/lymphoma Thickening at colonic anastomosis Hypernatremia (Not POA) CHF Thrush Plan Continued improvements. Oral drive with increase. O2 weaned to 3L. Continue with meropenem and clindamycin to cover aspiration and UTI. Continue pulmonary toilet, neb tx, weaning O2. Oral drive increasing. Encourage intake. Continue with TPN. Blood sugars improving with increased Lantus and discontinued steroids. Continue pain control. Current medications effective. Check BMP, Mg, and Phos in am due to medication use and TPN. Will repeat CBC in am due to pneumonia and anemia. With clinical improvements can transfer to medical floor to continue care. Case discussed with CCU nursing. Time spent with patient care 25 minutes. DVT Prophylaxis: SCD's GI Prophylaxis: Protonix Resuscitation Status: Do Not Resuscitate - Time spent with patient Time with patient PN: 25 minutes - Physician Narrative Physician: Norman Padilla MD Narrative: Date: 12/13/17 Time: 0954 Hospital Course Summary Disclaimer: The visit summary below is not to be considered part of the above Progress Note. Hospital Course: 12/06/17 Admitted overnight with aspiration pneumonia following an episode of hypoglycemia. Nonrebreather mask on presentation for oxygenation. Recurrent nausea and vomiting; subsequently developed bloody emesis and melanotic stools with drop in hemoglobin. Patient is critically ill. She is requiring 100% FiO2 provided by Vapotherm; I' m reluctant to use BiPAP due to agitation and due to risk of additional emesis. Spectrum antibiotics initiated overnight with cefepime and vancomycin-continue same. IV steroids initiated for inflammation associated with aspiration. Chest x-ray will be repeated. 1 unit of blood was transfused this morning due to drop in hemoglobin and respiratory status precludes endoscopic studies at this time. Follow serial hemoglobins, IV PPI twice a day, surgical consultation initiated- discussed with Dr. Flores. Patient is currently nothing by mouth and home medications are on hold due to hemodynamic instability. IV pain medications being utilized. Corrective insulin. 12/07/17 Evidence of clinical improvement present today-patient more alert, minor improvement in oxygenation. Blood cultures negative, urine culture positive Escherichia coli. Cough ineffective to collect sputum culture thus far. Chest x-ray with increased infiltrates bilateral lower lobes-especially on the right. Clindamycin added given high probability of aspiration; discontinue vancomycin. UTI adequately covered with meropenem. Hemoglobin stable following 1 unit packed red blood cells yesterday; respiratory status remains to compromise to consider EGD. Continue supportive care, Vapotherm for management of respiratory failure, corrective insulin, and pain medications IV. PT/OT/speech therapy evaluations in a.m. 12/08/17 Diuresing well spontaneously this morning and oxygen saturation titrated to 70% on Vapotherm; back to 90% this evening. Lasix given to promote further diuresis. Chest x-ray clearly looks worse today, BNP was elevated yesterday. Patient to somnolent for speech therapy to evaluate, oral medications remain on hold Leukocytosis improving-continue meropenem/clindamycin. Unlikely to obtain sputum culture. Pansensitive Escherichia coli UTI-effectively covered with above antibiotics Hemoglobin stable, no further hematemesis or melena; Sachi-Corrigan tear likely. Discussed with Dr. Flores-I believe respiratory status too unstable to contemplate EGD; continues conservative management and reassess later in the week. Blood sugars 183-269 past 24 hours, corrective insulin available. Sodium 150 today, receiving low-volume [id number] goal of diuresing today we'll place fluids on hold and reassess electrolytes/glucose in a.m. Echocardiogram requested. Continue supportive care, Vapotherm for management of respiratory failure, corrective insulin, and pain medications IV. May require nutritional support if unable to resume oral nutrition soon. Consider Dobbhoff/ NG for nutrition/meds. Remains very compromised, prognosis uncertain at best. 12/09/17 Continue with meropenem and clindamycin to cover aspiration and UTI. Little improvement in CXR with current diuresis (2822cc net output) - Hold IVF for now, possible repeat dose of later today. Continue Solu-Medrol to decrease pulmonary inflammation. Continue O2 support. HGB stable - continue IV Protonix. Therapy able to have patient to side of bed, speech to recheck swallow function. 12/10/17 Continue with meropenem and clindamycin to cover aspiration and UTI. Continue Solu-Medrol to decrease pulmonary inflammation. Continue O2 support, weaning Vapotherm as able. Oral drive minimal - will start TPN to give nutritional support. Speech continues to work on swallow. Start Nystatin oral swab for thrush. HGB stable - continue IV Protonix. Check CMP in am due to medication use. Will repeat CBC in am due to pneumonia and GI bleed. Continue with supportive CCU care. Patient still critically ill; making slow gains. 12/11/17 Continue with meropenem and clindamycin to cover aspiration and UTI. Can decrease Solu-Medrol to 62.5mg BID. Continue O2 support, weaning Vapotherm as able. TPN for nutritional support. Add Lantus to help glycemic control. Will try restarting Cymbalta, Neurontin, Requip, and [place] to help pain. Speech working with swallow - pt resistant with eating. 12/12/17 Significant improvement in mental status from yesterday - awake/alert and communicating well. Continue with meropenem and clindamycin to cover aspiration and UTI. Will stop Solu-Medrol after tonight's last dose. O2 needs decreasing - weaned to NC at 5L. Continue TPN for nutritional support as oral drive decreased. Lantus 30 units ordered overnight by Telehospitalist. Will decrease to 15 units as transitioning off steroids. Continue PT/OT/Speech to maximize functional status. Diet being advance per speech recommendations. 12/13/[address] Oral [address] with increase. O2 weaned to 3L. Continue with meropenem and clindamycin to cover aspiration and UTI. Continue pulmonary toilet, neb tx, weaning O2. Oral drive increasing. Encourage intake. Continue with TPN. Blood sugars improving with increased Lantus and discontinued steroids. Continue pain control. Current medications effective. With clinical improvements can transfer to medical floor to continue care.
[2017-12-13] MEDS: FAT EMULSION 20% 100 ML IV SCH (16:30)
[2017-12-13] MEDS: SODIUM CHLORIDE IV SCH (16:30)
[2017-12-13] MEDS: POTASSIUM CHLORIDE IV SCH (16:30)
[2017-12-13] MEDS: SODIUM ACETATE IV SCH (16:30)
[2017-12-13] MEDS: [UNRECOGNIZED DRUG - OTHER] IV SCH (16:30)
[2017-12-13] MEDS: INSULIN REGULAR, HUMAN 100 UNIT/ML INJECTION SQ SCH (20:34)
[2017-12-13] MEDS: INSULIN GLARGINE 100unit/ml INJECTION SQ SCH (20:34)
[2017-12-13] MEDS: SALINE FLUSH 10ml SYRINGE IVF PRN ×3 (20:36→22:13)
[2017-12-14] MEDS: INSULIN REGULAR, HUMAN 100 UNIT/ML INJECTION SQ PRN ×3 (00:22→22:22)
[2017-12-14] MEDS: CLINDAMYCIN PB 600 MG/50 ML BAG IV SCH ×3 (03:13→20:18)
[2017-12-14] MEDS: MORPHINE SULFATE 2mg INJECTION IVP PRN ×3 (04:12→18:19)
[2017-12-14] MEDS: MEROPENEM 500 MG in NS 50 ML IV SCH ×3 (06:28→23:52)
--- NOTE | 2017-12-14 07:37 | Pharmacy Consult-TPN/PPN ---
Pharmacy Consult-TPN/PPN - Laboratory Information Chemistry Turbidity < 20 (0-20) 12/14/17 04:08 Sodium 142 MEQ/L (136-146) 12/14/17 04:08 Potassium 3.9 MEQ/L (3.6-5) 12/14/17 04:08 Chloride 106 MEQ/L (98-107) 12/14/17 04:08 Carbon Dioxide 30 MEQ/L (22-30) 12/14/17 04:08 Anion Gap 6 meq/L (5-15) 12/14/17 04:08 BUN 27.0 MG/DL (7-17) H 12/14/17 04:08 Creatinine 0.4 mg/dL (0.7-1.2) L 12/14/17 04:08 Estimated Creat Clear 39 mL/min (>50) 12/14/17 04:08 GFR Calculation 152 mL/min (>60) 12/14/17 04:08 BUN/Creatinine Ratio 68 RATIO (6-26) H 12/14/17 04:08 Glucose 101 MG/DL (65-110) 12/14/17 04:08 Glucometer 120 mg/dL (65-110) 12/14/17 06:40 Calculated Osmolality 278 MOSM/KG (261-280) 12/14/17 04:08 Calcium 7.9 MG/DL (8.4-10.2) L 12/14/17 04:08 Phosphorus 3.4 MG/DL (2.5-4.5) 12/14/17 04:08 Magnesium 2.4 MG/DL (1.6-2.3) H 12/14/17 04:08 Total Bilirubin 0.40 MG/DL (0.20-1.30) 12/11/17 04:23 Icterus Index < 2 (0-7) 12/14/17 04:08 AST 14 U/L (14-36) 12/11/17 04:23 ALT 15 U/L (1-35) 12/11/17 04:23 Alkaline Phosphatase 65 U/L (38-126) 12/11/17 04:23 NT-Pro-B Natriuret Pep 89102 pg/mL (0-175) H 12/09/17 03:58 Total Protein 5.3 g/dL (6.3-8.2) L 12/11/17 04:23 Albumin 2.8 g/dL (3.5-5.0) L 12/11/17 04:23 Globulin 2.5 G/DL (2.4-3.6) 12/11/17 04:23 Albumin/Globulin Ratio 1.1 RATIO (1.1-2.2) 12/11/17 04:23 Plasma Lactate 1.1 MMOL/L (0.6-2.2) 12/05/17 23:30 Specimen Hemolysis < 15 (0-25) 12/14/17 04:08 Intake and Output 12/13/17 12/14/17 12/15/17 06:59 06:59 06:59 Intake Total 1969 / 1969 1528 / 1528 50 / 50 Output Total 1426 / 1426 618 / 618 Balance 544 / 544 910 / 910 50 / 50 Weight 55.2 kg 57.2 kg 58.6 kg Intake: IV 1890 / 1890 980 / 980 50 / 50 Clindamycin Pb 600 mg In 50 ml 150 / 150 150 / 150 @ 100 mls/hr IV Q8H TANO Rx#: [id number] Fat Emulsion 20% 100 ml @ 50 100 / 100 100 / 100 mls/hr IV 1600 TANO Rx#: [id number] Meropenem 500 mg In Ns 50 ml @ 200 / 200 100 / 100 50 / 50 100 mls/hr IV Q8H TANO Rx#: [id number] Sodium Chloride Conc 40 meq 1440 / 1440 630 / 630 Sodium Acetate 40 meq Potassium Chloride Inj 80 meq POTASSIUM PHOSPHATE (mEq) 40 meq Magnesium Sulfate Inj 16 meq Calcium Gluconate 9.3 meq Multi -Vit Infusion 10 ml Multi- Trace Elements 1 ml In TPN - Custom Low Carb 2,000 ml @ 60 mls/hr IV .Q24H TANO Rx#: [id number] Oral 80 / 80 548 / 548 Output: Urine Amount (Catheter) 1426 / 1426 618 / 618 Other: Urine Appearance Clear Clear Urine Color Yellow Tea Colored Urine Odor Strong Stool Characteristics Tarry Tarry Stool Color Black Black Stool Consistency Soft Liquid Size of Bowel Movement Moderate Large # Bowel Movements 1 # Incontinent Bowel Movements 2 - Consult Information We will change low carbohydrate TPN formula with 20mEq on NaCl (reduced from 40mEq) and decrease magnesium sulfate to 8mEq (reduced from 16mEq). Serum sodium, chloride and magnesium trended up overnight. Blood glucose at 101 and acceptable. Continue same rate. Thanks
[2017-12-14] MEDS: ALBUTEROL/IPRATROPIUM 2.5mg-0.5mg/3ml NEB AEROSOL SCH ×4 (09:31→19:59)
[2017-12-14] MEDS: BUDESONIDE INH.SOLN 0.5mg/2ml NEB AEROSOL SCH ×2 (09:31→19:59)
[2017-12-14] MEDS: PANTOPRAZOLE 40 MG INJECTION IVP SCH ×2 (09:45→20:18)
[2017-12-14] MEDS: NYSTATIN 500,000 units/5 ml ORAL LIQUID PO SCH ×4 (09:45→20:17)
[2017-12-14] MEDS: SALINE FLUSH 10ml SYRINGE IVF PRN ×6 (09:45→20:18)
[2017-12-14] MEDS: ROPINIROLE 0.5 MG TABLET PO SCH ×2 (09:45→20:17)
[2017-12-14] MEDS: HYDROCODONE/APAP 7.5 MG/325 MG TABLET PO SCH ×5 (09:45→20:18)
[2017-12-14] MEDS: GABAPENTIN 300 MG CAPSULE PO SCH ×4 (09:45→20:18)
[2017-12-14] MEDS: DULOXETINE 30 MG CAPSULE PO SCH (09:54)
--- NOTE | 2017-12-14 10:39 | Progress Note ---
- Date 12/14/17 Subjective: F/U: Acute hypoxic/hypercarbic respiratory failure, Aspiration pneumonia/ pneumonitis, Acute GI bleed-upper Resting in bed, initially in uncomfortable position she could not move out of but feeling better after nursing repositioned her. Weak in general-hard to move in bed. Legs week. Appetite increasing-not liking pureed foods. Not having nausea or ab pain. Passing stool; not feeling constipated. Breathing feeling well. No congestion, cough, or pain with breathing. Not having chest pressure or discomfort. Objective Vital signs: Temperature 96.8 F 12/14/17 07:29 Pulse Rate 74 12/14/17 07:30 Respiratory Rate 20 12/14/17 09:32 Blood Pressure 156/71 H 12/14/17 07:29 Pulse Oximetry 92 12/14/17 09:32 Rhythm: Normal Sinus Rhythm Height/Weight/BMI: Height 1.68 m Weight 58.6 kg Body Mass Index 20.5 - Constitutional Present: well nourished, well developed, average body habitus, cooperative - Routine HEENT Exam Head: Present: normocephalic, atraumatic Eye: Present: EOMI, PERRL ENT: Present: mucous membranes moist - Routine Respiratory Exam Present: decreased breath sounds. Absent: rales, respiratory distress, rhonchi , stridor, wheezes, crackles - Routine Cardiovascular Exam Present: RRR, no murmur - Routine Abdominal Exam Present: soft, normoactive bowel sounds, non distended, non tender. Absent: guarding - Routine Extremities Exam Present: no edema, pulses intact. Absent: cyanosis, clubbing - Routine Musculoskeletal Exam Musculoskeletal: Present: no clubbing or cyanosis - Routine Skin Exam Present: dry, warm - Routine Neurological Exam Present: alert, oriented X3, CN II-XII intact, moving all extremities, vision grossly intact, hearing grossly intact, normal speech. Absent: altered mental status - Routine Psychiatric Exam Present: normal affect, normal thought process, cooperative Results - Labs CBC & Chem 7: 12/14/17 04:08 12/14/17 04:08 Microbiology Results: Microbiology 12/05/17 19:16 Peripheral/Iv Start Blood Culture - Final No Growth After 5 Days 12/05/17 19:30 Peripheral/Iv Start Blood Culture - Final No Growth After 5 Days 12/05/17 20:54 Urine, Cath Caro Urine Culture - Final Escherichia coli 12/05/17 23:40 Urine Legionella Urinary Antigen - Final Assessment and Plan (1) Aspiration pneumonia Current visit: Yes Status: Acute (2) Acute respiratory failure with hypoxia Current visit: Yes Status: Acute Assessment and Plan: Impression Acute hypoxic/hypercarbic respiratory failure Aspiration pneumonia/pneumonitis Acute GI bleed - upper Acute blood loss anemia - 1 unit PRBC 12/06/17 Nausea/vomiting Leukocytosis UTI - Escherichia coli Diabetes mellitus Hypertension Chronic pain Restless leg syndrome Spinal stenosis Hx colon cancer/lymphoma Thickening at colonic anastomosis Hypernatremia (Not POA) CHF Thrush Plan Continues to make improvements. Oral intake increasing. O2 needs decreased - 1L with sats 92-96%. Continue with meropenem and clindamycin to cover aspiration and UTI. Today is day 9 of meropenem and day 8 of clindamycin - course nearing completion. Will recheck portable CXR tomorrow for evaluation. Continue pulmonary toilet, neb tx, weaning O2. Continue with TPN. Oral intake increasing. Hope speech able to advance diet as pt not liking pureed foods. Blood sugars improving - continue Lantus and ISS. Continue pain control. Current medications effective. Heating pad as able. Blood pressure showing elevation at times. Will start Norvasc 2.5mg Daily (home Norvasc 10 and benazepril 40mg) Very weak and debilitated. Will need continued work with therapy to help recovery. Check BMP and Mg in am due to medication use and TPN. Will repeat CBC in am due to pneumonia and anemia. DVT Prophylaxis: SCD's GI Prophylaxis: Protonix Resuscitation Status: Do Not Resuscitate - Time spent with patient Time with patient PN: 25 minutes - Physician Narrative Physician: Norman Padilla MD Narrative: Date: 12/14/17 Time: 10:30 Hospital Course Summary Disclaimer: The visit summary below is not to be considered part of the above Progress Note. Hospital Course: 12/06/17 Admitted overnight with aspiration pneumonia following an episode of hypoglycemia. Nonrebreather mask on presentation for oxygenation. Recurrent nausea and vomiting; subsequently developed bloody emesis and melanotic stools with drop in hemoglobin. Patient is critically ill. She is requiring 100% FiO2 provided by Vapotherm; I' m reluctant to use BiPAP due to agitation and due to risk of additional emesis. Spectrum antibiotics initiated overnight with cefepime and vancomycin-continue same. IV steroids initiated for inflammation associated with aspiration. Chest x-ray will be repeated. 1 unit of blood was transfused this morning due to drop in hemoglobin and respiratory status precludes endoscopic studies at this time. Follow serial hemoglobins, IV PPI twice a day, surgical consultation initiated- discussed with Dr. Flores. Patient is currently nothing by mouth and home medications are on hold due to hemodynamic instability. IV pain medications being utilized. Corrective insulin. 12/07/17 Evidence of clinical improvement present today-patient more alert, minor improvement in oxygenation. Blood cultures negative, urine culture positive Escherichia coli. Cough ineffective to collect sputum culture thus far. Chest x-ray with increased infiltrates bilateral lower lobes-especially on the right. Clindamycin added given high probability of aspiration; discontinue vancomycin. UTI adequately covered with meropenem. Hemoglobin stable following 1 unit packed red blood cells yesterday; respiratory status remains to compromise to consider EGD. Continue supportive care, Vapotherm for management of respiratory failure, corrective insulin, and pain medications IV. PT/OT/speech therapy evaluations in a.m. 12/08/17 Diuresing well spontaneously this morning and oxygen saturation titrated to 70% on Vapotherm; back to 90% this evening. Lasix given to promote further diuresis. Chest x-ray clearly looks worse today, BNP was elevated yesterday. Patient to somnolent for speech therapy to evaluate, oral medications remain on hold Leukocytosis improving-continue meropenem/clindamycin. Unlikely to obtain sputum culture. Pansensitive Escherichia coli UTI-effectively covered with above antibiotics Hemoglobin stable, no further hematemesis or melena; Sachi-Corrigan tear likely. Discussed with Dr. Flores-I believe respiratory status too unstable to contemplate EGD; continues conservative management and reassess later in the week. Blood sugars 183-269 past 24 hours, corrective insulin available. Sodium 150 today, receiving low-volume [id number] goal of diuresing today we'll place fluids on hold and reassess electrolytes/glucose in a.m. Echocardiogram requested. Continue supportive care, Vapotherm for management of respiratory failure, corrective insulin, and pain medications IV. May require nutritional support if unable to resume oral nutrition soon. Consider Dobbhoff/ NG for nutrition/meds. Remains very compromised, prognosis uncertain at best. 12/09/17 Continue with meropenem and clindamycin to cover aspiration and UTI. Little improvement in CXR with current diuresis (2822cc net output) - Hold IVF for now, possible repeat dose of later today. Continue Solu-Medrol to decrease pulmonary inflammation. Continue O2 support. HGB stable - continue IV Protonix. Therapy able to have patient to side of bed, speech to recheck swallow function. 12/10/17 Continue with meropenem and clindamycin to cover aspiration and UTI. Continue Solu-Medrol to decrease pulmonary inflammation. Continue O2 support, weaning Vapotherm as able. Oral drive minimal - will start TPN to give nutritional support. Speech continues to work on swallow. Start Nystatin oral swab for thrush. HGB stable - continue IV Protonix. Check CMP in am due to medication use. Will repeat CBC in am due to pneumonia and GI bleed. Continue with supportive CCU care. Patient still critically ill; making slow gains. 12/11/17 Continue with meropenem and clindamycin to cover aspiration and UTI. Can decrease Solu-Medrol to 62.5mg BID. Continue O2 support, weaning Vapotherm as able. TPN for nutritional support. Add Lantus to help glycemic control. Will try restarting Cymbalta, Neurontin, Requip, and [place] to help pain. Speech working with swallow - pt resistant with eating. 12/12/17 Significant improvement in mental status from yesterday - awake/alert and communicating well. Continue with meropenem and clindamycin to cover aspiration and UTI. Will stop Solu-Medrol after tonight's last dose. O2 needs decreasing - weaned to NC at 5L. Continue TPN for nutritional support as oral drive decreased. Lantus 30 units ordered overnight by Telehospitalist. Will decrease to 15 units as transitioning off steroids. Continue PT/OT/Speech to maximize functional status. Diet being advance per speech recommendations. 12/13/[address] with increase. O2 weaned to 3L. Continue with meropenem and clindamycin to cover aspiration and UTI. Continue pulmonary toilet, neb tx, weaning O2. Oral drive increasing. Encourage intake. Continue with TPN. Blood sugars improving with increased Lantus and discontinued steroids. Continue pain control. Current medications effective. With clinical improvements can transfer to medical floor to continue care. 12/14/17 Continues to make improvements. Oral intake increasing. O2 needs decreased - 1L with sats 92-96%. Continue with meropenem and clindamycin to cover aspiration and UTI. Today is day 9 of meropenem and day 8 of clindamycin - course nearing completion. Will recheck portable CXR tomorrow for evaluation. Continue pulmonary toilet, neb tx, weaning O2. Continue with TPN. Oral intake increasing. Hope speech able to advance diet as pt not liking pureed foods. Blood sugars improving - continue Lantus and ISS. Continue pain control. Current medications effective. Heating pad as able. Blood pressure showing elevation at times. Will start Norvasc 2.5mg Daily (home Norvasc 10 and benazepril 40mg) Very weak and debilitated. Will need continued work with therapy to help recovery.
[2017-12-14] MEDS: AMLODIPINE 2.5 MG TABLET PO SCH (12:11)
[2017-12-14] MEDS: POTASSIUM CHLORIDE IV SCH ×4 (14:30→16:36)
[2017-12-14] MEDS: SODIUM ACETATE IV SCH ×4 (14:30→16:36)
[2017-12-14] MEDS: SODIUM CHLORIDE IV SCH ×4 (14:30→16:36)
[2017-12-14] MEDS: [UNRECOGNIZED DRUG - OTHER] IV SCH ×2 (14:30→16:36)
[2017-12-14] MEDS: FAT EMULSION 20% 100 ML IV SCH (16:03)
[2017-12-14] MEDS: [UNRECOGNIZED DRUG - OTHER] IV SCH ×2 (16:33→16:35)
[2017-12-14] MEDS ORDERED: INSULIN REGULAR, HUMAN 100 UNIT/ML INJECTION SQ ONE (18:08)
[2017-12-14] MEDS: INSULIN GLARGINE 100unit/ml INJECTION SQ SCH (21:32)
[2017-12-14] MEDS: INSULIN REGULAR, HUMAN 100 UNIT/ML INJECTION SQ SCH (22:38)
[2017-12-15] MEDS: INSULIN REGULAR, HUMAN 100 UNIT/ML INJECTION SQ PRN (00:03)
[2017-12-15] MEDS: CLINDAMYCIN PB 600 MG/50 ML BAG IV SCH (03:18)
[2017-12-15] MEDS: SALINE FLUSH 10ml SYRINGE IVF PRN ×3 (04:06→21:18)
[2017-12-15] MEDS: MEROPENEM 500 MG in NS 50 ML IV SCH (06:04)
[2017-12-15] MEDS: NS FLUSH BAG 500ml IV PRN (06:04)
[2017-12-15] MEDS: MORPHINE SULFATE 2mg INJECTION IVP PRN (07:04)
--- NOTE | 2017-12-15 08:24 | XRay Report ---
EXAM: XR chest 1V LOCATION OF DICTATION: [facility] HISTORY: f/u COMPARISON: December 11, 2017 FINDINGS: The heart size is upper limits normal. Mild prominence the perihilar interstitial lung markings may be secondary to mild congestive changes. There is a right-sided PICC line in place the tip overlying the mid SVC. No developing consolidation opacities. There is some blunting the costophrenic angles bilaterally may be secondary to small pleural effusions or pleural thickening. There is no pneumothorax. The osseous structures are within normal limits for the patient's age. IMPRESSION: 1. Upper limits normal size heart. Mild prominence of the perihilar interstitial lung markings may be secondary to mild congestive changes. Recommend follow based on continued symptoms. 2. Right PICC line in place the tip overlying the mid SVC. 3. Blunting of the costal stomach angles bilaterally may be secondary to small effusions or pleural thickening. .
[2017-12-15] MEDS: ROPINIROLE 0.5 MG TABLET PO SCH ×2 (08:34→21:17)
[2017-12-15] MEDS: DULOXETINE 30 MG CAPSULE PO SCH (08:34)
[2017-12-15] MEDS: HYDROCODONE/APAP 7.5 MG/325 MG TABLET PO SCH ×5 (08:35→21:17)
[2017-12-15] MEDS: GABAPENTIN 300 MG CAPSULE PO SCH ×4 (08:35→21:16)
[2017-12-15] MEDS: AMLODIPINE 2.5 MG TABLET PO SCH (08:35)
[2017-12-15] MEDS: NYSTATIN 500,000 units/5 ml ORAL LIQUID PO SCH ×4 (08:36→21:18)
[2017-12-15] MEDS: PANTOPRAZOLE 40 MG INJECTION IVP SCH ×2 (08:36→21:17)
--- NOTE | 2017-12-15 09:21 | Progress Note ---
- Date 12/15/17 Subjective: Karlie reported that today is the best she's felt in a long time. Therapy made her get up out of bed and into the chair -- she didn't think she'd be able to do it but with encouragement she did. She is quite weak overall, and feels a little dizzy with activity. She denies any SOA or chest pain at rest or with exertion. She denies nausea. She notes mild RUQ pain, but states that this is chronic and her pain level is at baseline. She doesn't care for pureed food and speech therapy is going to try some new consistencies this morning. Objective Vital signs: Temperature 98.5 F 12/15/17 07:40 Pulse Rate 83 12/15/17 07:40 Respiratory Rate 16 12/15/17 08:35 Blood Pressure 150/81 H 12/15/17 07:40 Pulse Oximetry 93 12/15/17 07:40 Rhythm: Normal Sinus Rhythm Height/Weight/BMI: Height 1.68 m Weight 60.1 kg Body Mass Index 20.5 - Constitutional Present: no acute distress, well nourished, well developed - Routine HEENT Exam Head: Present: normocephalic Eye: Absent: conjunctival icterus, scleral injection ENT: Present: mucous membranes moist, mucous membranes dry (tongue is dry), oropharynx clear Comments: left eye ptosis - Routine Respiratory Exam Present: decreased breath sounds - Routine Cardiovascular Exam Present: RRR, S1, S2, murmur (very soft MARLA) - Routine Abdominal Exam Present: soft, normoactive bowel sounds, non distended, non tender, hernia, wound (superior to hernia) - Routine Extremities Exam Present: no edema - Routine Musculoskeletal Exam Musculoskeletal: Present: moving extremities well - Routine Skin Exam Present: intact, dry, warm - Routine Neurological Exam Present: alert, oriented X3, CN II-XII intact, moving all extremities, vision grossly intact, hearing grossly intact, normal speech. Absent: sensory deficit , motor deficit, altered mental status, facial asymmetry - Routine Psychiatric Exam Present: normal affect, normal thought process, cooperative Results - Labs CBC & Chem 7: 12/15/17 04:05 12/15/17 04:05 Microbiology Results: Microbiology 12/05/17 19:16 Peripheral/Iv Start Blood Culture - Final No Growth After 5 Days 12/05/17 19:30 Peripheral/Iv Start Blood Culture - Final No Growth After 5 Days 12/05/17 20:54 Urine, Cath Caro Urine Culture - Final Escherichia coli 12/05/17 23:40 Urine Legionella Urinary Antigen - Final Assessment and Plan (1) Aspiration pneumonia Current visit: Yes Status: Acute (2) Acute respiratory failure with hypoxia Current visit: Yes Status: Acute Assessment and Plan: Impression Acute hypoxic/hypercarbic respiratory failure Aspiration pneumonia/pneumonitis Acute GI bleed - upper Acute blood loss anemia - 1 unit PRBC 12/06/17 Nausea/vomiting Leukocytosis UTI - Escherichia coli Diabetes mellitus Hypertension Chronic pain Restless leg syndrome Spinal stenosis Hx colon cancer/lymphoma Thickening at colonic anastomosis Hypernatremia (Not POA) CHF Thrush Plan On room air this morning. CXR personally reviewed -- mild congestion noted though clinically pt is doing well. Hgb trending back down; 8.0 today. No melena/bloody stools reported. Continue TPN; Re-evaluated by speech today and diet was upgraded soft diet chopped meat and thin liquids. Continue small meals and supplemental snacks. All of her speech therapy goals were met and she's been released from speech therapy. Noted hyperglycemia; continues on Lantus 15 U HS (had fasting sugar of 74 this morning) & SSI. Will discuss with attending. Will discuss ongoing abx with Dr. Padilla. Today odell day #10 of meropenem, # 9 of clinda. Low-dose Norvasc started -- may be able to re-introduce home dosing/other antiHTN soon. High risk medication still in use: IV narcotics. Encouraged activity/participation in therapy. Randy Can discontinue antibiotics - course complete. Oral intake much improved; will stop TPN. With discontinuation of TPN will stop Lantus. Increase Norvasc to 5mg as BP showing increase (Home dose 10mg - KIARA remains on hold). Bladder retraining. DVT Prophylaxis: SCD's GI Prophylaxis: Protonix Resuscitation Status: Do Not Resuscitate - Time spent with patient Time with patient PN: 35 minutes - Physician Narrative Physician: Norman Padilla MD Narrative: Date: 12/15/17 Time: 1358 Have independently interviewed and examined pt. Chart reviewed. Case discussed with CM, my [employer], and patient's . Care plan developed with my supervision ; agree with above. Doing well today. Breathing well-not congested or SOA. No cough or pain with breathing. Maintaining saturations on RA. Voice much stronger today. Oral intake improving. Diet advanced. No ab pain or nausea. Working with therapy, but strength still decreased. Chronic leg pain makes therapy a challenge. Lungs: decreased, no crackles/wheeze/distress CV: regular AB: soft nt BS decreased MSE: awake alert appropriate Plan: Can discontinue antibiotics - course completed. Diet advanced by speech. With improving oral intake, will stop TPN. Can stop Lantus. Bladder retraining. Encourage continued therapy. Likely able to discharge to skilled in near future. Hospital Course Summary Disclaimer: The visit summary below is not to be considered part of the above Progress Note. Hospital Course: 12/06/17 Admitted overnight with aspiration pneumonia following an episode of hypoglycemia. Nonrebreather mask on presentation for oxygenation. Recurrent nausea and vomiting; subsequently developed bloody emesis and melanotic stools with drop in hemoglobin. Patient is critically ill. She is requiring 100% FiO2 provided by Vapotherm; I' m reluctant to use BiPAP due to agitation and due to risk of additional emesis. Spectrum antibiotics initiated overnight with cefepime and vancomycin-continue same. IV steroids initiated for inflammation associated with aspiration. Chest x-ray will be repeated. 1 unit of blood was transfused this morning due to drop in hemoglobin and respiratory status precludes endoscopic studies at this time. Follow serial hemoglobins, IV PPI twice a day, surgical consultation initiated- discussed with Dr. Flores. Patient is currently nothing by mouth and home medications are on hold due to hemodynamic instability. IV pain medications being utilized. Corrective insulin. 12/07/17 Evidence of clinical improvement present today-patient more alert, minor improvement in oxygenation. Blood cultures negative, urine culture positive Escherichia coli. Cough ineffective to collect sputum culture thus far. Chest x-ray with increased infiltrates bilateral lower lobes-especially on the right. Clindamycin added given high probability of aspiration; discontinue vancomycin. UTI adequately covered with meropenem. Hemoglobin stable following 1 unit packed red blood cells yesterday; respiratory status remains to compromise to consider EGD. Continue supportive care, Vapotherm for management of respiratory failure, corrective insulin, and pain medications IV. PT/OT/speech therapy evaluations in a.m. 12/08/17 Diuresing well spontaneously this morning and oxygen saturation titrated to 70% on Vapotherm; back to 90% this evening. Lasix given to promote further diuresis. Chest x-ray clearly looks worse today, BNP was elevated yesterday. Patient to somnolent for speech therapy to evaluate, oral medications remain on hold Leukocytosis improving-continue meropenem/clindamycin. Unlikely to obtain sputum culture. Pansensitive Escherichia coli UTI-effectively covered with above antibiotics Hemoglobin stable, no further hematemesis or melena; Sachi-Corrigan tear likely. Discussed with Dr. Flores-I believe respiratory status too unstable to contemplate EGD; continues conservative management and reassess later in the week. Blood sugars 183-269 past 24 hours, corrective insulin available. Sodium 150 today, receiving low-volume [id number] goal of diuresing today we'll place fluids on hold and reassess electrolytes/glucose in a.m. Echocardiogram requested. Continue supportive care, Vapotherm for management of respiratory failure, corrective insulin, and pain medications IV. May require nutritional support if unable to resume oral nutrition soon. Consider Dohilary/ CRISTINA for nutrition/meds. Remains very compromised, prognosis uncertain at best. 12/09/17 Continue with meropenem and clindamycin to cover aspiration and UTI. Little improvement in CXR with current diuresis (2822cc net output) - Hold IVF for now, possible repeat dose of later today. Continue Solu-Medrol to decrease pulmonary inflammation. Continue O2 support. HGB stable - continue IV Protonix. Therapy able to have patient to side of bed, speech to recheck swallow function. 12/10/17 Continue with meropenem and clindamycin to cover aspiration and UTI. Continue Solu-Medrol to decrease pulmonary inflammation. Continue O2 support, weaning Vapotherm as able. Oral drive minimal - will start TPN to give nutritional support. Speech continues to work on swallow. Start Nystatin oral swab for thrush. HGB stable - continue IV Protonix. Check CMP in am due to medication use. Will repeat CBC in am due to pneumonia and GI bleed. Continue with supportive CCU care. Patient still critically ill; making slow gains. 12/11/17 Continue with meropenem and clindamycin to cover aspiration and UTI. Can decrease Solu-Medrol to 62.5mg BID. Continue O2 support, weaning Vapotherm as able. TPN for nutritional support. Add Lantus to help glycemic control. Will try restarting Cymbalta, Neurontin, Requip, and [place] to help pain. Speech working with swallow - pt resistant with eating. 12/12/17 Significant improvement in mental status from yesterday - awake/alert and communicating well. Continue with meropenem and clindamycin to cover aspiration and UTI. Will stop Solu-Medrol after tonight's last dose. O2 needs decreasing - weaned to NC at 5L. Continue TPN for nutritional support as oral drive decreased. Lantus 30 units ordered overnight by Telehospitalist. Will decrease to 15 units as transitioning off steroids. Continue PT/OT/Speech to maximize functional status. Diet being advance per speech recommendations. 12/13/[address] with increase. O2 weaned to 3L. Continue with meropenem and clindamycin to cover aspiration and UTI. Continue pulmonary toilet, neb tx, weaning O2. Oral drive increasing. Encourage intake. Continue with TPN. Blood sugars improving with increased Lantus and discontinued steroids. Continue pain control. Current medications effective. With clinical improvements can transfer to medical floor to continue care. 12/14/17 Continues to make improvements. Oral intake increasing. O2 needs decreased - 1L with sats 92-96%. Continue with meropenem and clindamycin to cover aspiration and UTI. Today is day 9 of meropenem and day 8 of clindamycin - course nearing completion. Will recheck portable CXR tomorrow for evaluation. Continue pulmonary toilet, neb tx, weaning O2. Continue with TPN. Oral intake increasing. Hope speech able to advance diet as pt not liking pureed foods. Blood sugars improving - continue Lantus and ISS. Continue pain control. Current medications effective. Heating pad as able. Blood pressure showing elevation at times. Will start Norvasc 2.5mg Daily (home Norvasc 10 and benazepril 40mg) Very weak and debilitated. Will need continued work with therapy to help recovery. 12/15/17 On room air this morning. CXR personally reviewed -- mild congestion noted though clinically pt is doing well. Hgb trending back down; 8.0 today. No melena/bloody stools reported. Speech reevaluated patient today and diet was upgraded soft diet chopped meat and thin liquids. Continue small meals and supplemental snacks. All of her speech therapy goals were met and she's been released from speech therapy. With diet advanced and oral drive improved, can stop TPN. Will stop Lantus as was used to glycemic control with TPN. Can discontinue antibiotics - CXR showing improvement and WBC normal. Feel course is complete. Can increase Norvasc to 5mg as BP showing increase.
[2017-12-15] MEDS: BUDESONIDE INH.SOLN 0.5mg/2ml NEB AEROSOL SCH ×2 (10:01→19:54)
[2017-12-15] MEDS: ALBUTEROL/IPRATROPIUM 2.5mg-0.5mg/3ml NEB AEROSOL SCH ×2 (10:02→19:54)
[2017-12-15] MEDS ORDERED: CHOLESTYRAMINE LIGHT 4 G PACKET PO PRN (10:51)
[2017-12-15] MEDS: INSULIN ASPART 100unit/ml INJECTION SQ PRN (23:32)
[2017-12-16] MEDS: ALBUTEROL/IPRATROPIUM 2.5mg-0.5mg/3ml NEB AEROSOL SCH (06:48)
[2017-12-16] MEDS: BUDESONIDE INH.SOLN 0.5mg/2ml NEB AEROSOL SCH (06:48)
[2017-12-16 08:19] VITALS: BP 141/76; RESP 16; TEMP 97.8; O2SAT 94
[2017-12-16] MEDS: ROPINIROLE 0.5 MG TABLET PO SCH (08:20)
[2017-12-16] MEDS: DULOXETINE 30 MG CAPSULE PO SCH (08:20)
[2017-12-16] MEDS: GABAPENTIN 300 MG CAPSULE PO SCH ×2 (08:21→12:46)
[2017-12-16] MEDS: HYDROCODONE/APAP 7.5 MG/325 MG TABLET PO SCH ×2 (08:21→12:45)
[2017-12-16] MEDS: NYSTATIN 500,000 units/5 ml ORAL LIQUID PO SCH ×2 (08:22→12:46)
[2017-12-16] MEDS: PANTOPRAZOLE 40 MG INJECTION IVP SCH (08:22)
[2017-12-16] MEDS ORDERED: AMLODIPINE 5 MG TABLET PO SCH (09:00)
--- NOTE | 2017-12-16 11:59 | Discharge Summary ---
Discharge Information Date of admission: 12/05/17 21:32 Anticipated date of discharge: 12/16/17 Attending Physician: Maggie Malone MD Primary care physician: Lalo Torres MD Consults: Physician Consult: Jakob Flores Reason For Exam: GI bleed Acute hypoxic/hypercarbic respiratory failure - RESOLVED Aspiration pneumonia/pneumonitis - RESOLVED Acute GI bleed - upper - RESOLVED Acute blood loss anemia - 1 unit PRBC 12/06/17 - IMPROVED Nausea/vomiting - RESOLVED Leukocytosis - RESOLVED UTI - Escherichia coli - RESOLVED Thrush - RESOLVED Hypernatremia (Not POA), later with hyponatremia Diabetes mellitus Hypertension Chronic pain Restless leg syndrome Spinal stenosis Hx colon cancer/lymphoma Thickening at colonic anastomosis CHF - Procedures Procedures: Caro catheter 12/05/17-12/16/17 PRBC transfusion x1 unit on 12/06/17 Echocardiogram 12/09/17 1. Preserved systolic function. 2. Moderate pulmonary hypertension. 3. Moderate to severe tricuspid regurgitation. 4. Grade I diastolic dysfunction. Right PICC line 12/10/17-12/16/17 - Laboratory Labs: 12/16/17 03:36 12/16/17 03:36 - Microbiology Microbiology 12/05/17 19:16 Peripheral/Iv Start Blood Culture - No Growth After 5 Days 12/05/17 19:30 Peripheral/Iv Start Blood Culture - No Growth After 5 Days 12/05/17 20:54 Urine, Cath Caro Urine Culture - Escherichia coli 12/05/17 23:40 Legionella Urinary Antigen - Negative - Radiology Radiology: Date of Exam: 12/05/17 PROCEDURE: CHEST 2-VIEWS UPRIGHT (PA & LAT) FINDINGS: New airspace consolidation in the right lower lobe. No pneumothorax. Chronic opacity in the left base. Patient is rotated and angulated. Heart size is mildly enlarged. Mediastinal contours are difficult to evaluate with the rotation present. Pulmonary vascularity is grossly normal. Impression: Right lower lobe pneumonia or aspiration. = = = = = = = = = = = = = = = = = = = = = = = = = = = = = = = = = = = = = = = = = = = = = = = = = = = = = = = = = = = Date of Exam: 12/06/17 PROCEDURE: XR chest 1V: Findings: Worsening airspace consolidation in both lower lobes, right greater than left. Hypoinflation. Small effusions. No pneumothorax. Patient is significantly rotated limiting evaluation of the heart and mediastinal contours. Impression: Worsening lower lobe pneumonia or aspiration. = = = = = = = = = = = = = = = = = = = = = = = = = = = = = = = = = = = = = = = = = = = = = = = = = = = = = = = = = = = Date of Exam: 12/07/17 PROCEDURE: XR chest 1V: Findings: There is cardiac megaly and probably vascular congestion with moderate interstitial pulmonary edema and bibasilar atelectasis. There may also be bilateral pleural effusions. Trachea is midline. There is moderate tortuosity of the descending thoracic aorta. The examination is slightly expiratory in nature which may overestimate the amount of interstitial lung disease. Impression: Moderate CHF with possible bilateral pleural effusions. = = = = = = = = = = = = = = = = = = = = = = = = = = = = = = = = = = = = = = = = = = = = = = = = = = = = = = = = = = = Date of Exam: 12/10/17 PROCEDURE: XR chest post-procedure 1V: Findings: The examination is expiratory nature. There is mild diffuse interstitial pulmonary edema, similar to prior study. Trachea is midline. There is a right arm PICC line with its tip at the right atrial SVC junction. Impression: Moderate diffuse interstitial pulmonary edema, similar to prior study. Right arm PICC line appears to be in good position. = = = = = = = = = = = = = = = = = = = = = = = = = = = = = = = = = = = = = = = = = = = = = = = = = = = = = = = = = = = Date of Exam: 12/11/17 Procedure: XR chest 1V: Findings: Low lung volumes. No focal airspace consolidation. Improved pulmonary edema. No pleural effusion or pneumothorax. Impression: Improved pulmonary edema with unchanged right PICC. = = = = = = = = = = = = = = = = = = = = = = = = = = = = = = = = = = = = = = = = = = = = = = = = = = = = = = = = = = = Date of Exam: 12/15/17 PROCEDURE: XR chest 1V FINDINGS: The heart size is upper limits normal. Mild prominence the perihilar interstitial lung markings may be secondary to mild congestive changes. There is a right-sided PICC line in place the tip overlying the mid SVC. No developing consolidation opacities. There is some blunting the costophrenic angles bilaterally may be secondary to small pleural effusions or pleural thickening. There is no pneumothorax. The osseous structures are within normal limits for the patient's age. IMPRESSION: 1. Upper limits normal size heart. Mild prominence of the perihilar interstitial lung markings may be secondary to mild congestive changes. Recommend follow based on continued symptoms. 2. Right PICC line in place the tip overlying the mid SVC. 3. Blunting of the costal stomach angles bilaterally may be secondary to small effusions or pleural thickening. History of Present Illness HPI: Mrs. Billingsley is an 86-year-old female with multiple chronic medical problems. She was last hospitalized approximately a month ago with enteritis and heme positive stools. At that time she was found to have thickening at the colonic anastomosis either due to inflammation or possibly recurrent tumor. Her reports that she had 3 days of nausea, vomiting, and diarrhea about 2 weeks ago ; is not aware of any bleeding at that time and she was not referred to the emergency room for assessment. Yesterday the facility she lives at did not have air conditioning. Her reports she was in her usual state of health and a breakfast well in the morning. He was not present at lunch but sometime in the early afternoon she had an episode of hypoglycemia with blood sugar dropping into the 40s. It was treated in usual manner and later when she was rechecked she was found to have emesis on her clothing and was described as being short of breath and hypoxic. She transferred to the emergency room with suspected aspiration. She was on 10 L supplemental oxygen via nonrebreather mask when she arrived in the emergency room with O2 saturation of 97% although oxygenation deteriorated after suctioning and several additional episodes of emesis in the emergency room. She was admitted to the intensive care unit with probable aspiration pneumonia/pneumonitis and chest x-ray demonstrated right sided infiltrate. Antibiotics were initiated. Overnight the patient had several episodes of bloody emesis followed by black liquid stools which were heme positive and progressive drop in hemoglobin requiring transfusion of 1 unit packed red blood cells early this morning. Patient has a DO NOT RESUSCITATE order which her confirms this morning. Objective Vital signs: Temperature 97.8 F 12/16/17 08:00 Pulse Rate 80 12/16/17 08:00 Respiratory Rate 16 12/16/17 08:00 Blood Pressure 141/76 H 12/16/17 08:00 Pulse Oximetry 94 12/16/17 08:00 Rhythm: Normal Sinus Rhythm Height/Weight/BMI: Height 1.68 m Weight 60.1 kg Body Mass Index 20.5 - Constitutional Present: no acute distress, well nourished, well developed - Routine HEENT Exam Head: Present: normocephalic Eye: Present: PERRL. Absent: conjunctival icterus, scleral injection ENT: Present: mucous membranes moist, oropharynx clear (Thrush resolved) Comments: left eye ptosis - Routine Respiratory Exam Present: decreased breath sounds (B/L bases) - Routine Cardiovascular Exam Present: RRR, S1, S2 - Routine Abdominal Exam Present: soft, normoactive bowel sounds, non distended, non tender, hernia - Routine Extremities Exam Present: no edema - Routine Skin Exam Present: intact, dry, warm - Routine Neurological Exam Present: alert, oriented X3, CN II-XII intact, moving all extremities, vision grossly intact, hearing grossly intact, normal speech. Absent: sensory deficit , motor deficit, altered mental status, facial asymmetry - Routine Psychiatric Exam Present: normal affect, normal thought process, cooperative Hospital Course This is a general summary of the patient's hospital course. For more details refer to the complete medical record. Hospital course: 12/06/17 Admitted overnight with aspiration pneumonia following an episode of hypoglycemia. Nonrebreather mask on presentation for oxygenation, later requiring 100% FiO2 provided by Vapotherm. Recurrent nausea and vomiting; subsequently developed bloody emesis and melanotic stools with drop in hemoglobin significant enough (10.9 --> 7.4) to transfuse 1 unit PRBC. IV PPI started and Dr. Flores was consulted. She was NPO. cefepime and vancomycin initiated. IV steroids initiated for inflammation associated with aspiration. Home medications are on hold due to hemodynamic instability. IV pain medications being utilized. Corrective insulin. 12/07/17 Evidence of clinical improvement -patient more alert, minor improvement in oxygenation. Blood cultures negative, urine culture positive Escherichia coli. UTI adequately covered with meropenem. Chest x-ray with increased infiltrates bilateral lower lobes-especially on the right. Clindamycin added given high probability of aspiration; discontinue vancomycin. Hemoglobin stable following 1 unit packed red blood cells yesterday; respiratory status precludes consideration for EGD. 12/08/17 Oxygen saturation titrated to 70% on Vapotherm; back to 90% by evening. Lasix given to promote further diuresis. Chest x-ray worse today. Patient to somnolent for speech therapy to evaluate, oral medications remain on hold Leukocytosis improving-continue meropenem/clindamycin. Unlikely to obtain sputum culture. 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 Blood sugars 183-269 past 24 hours, corrective insulin available. Sodium 150 today, receiving low-volume [id number] goal of diuresing IVF placed on hold 12/09/17 Little improvement in CXR with current diuresis (2822cc net output) - Hold IVF for now, possible repeat dose of later today. Continue Solu-Medrol and O2 support. HGB stable - continue IV Protonix. 12/10/[address] - start TPN to give nutritional support. Start Nystatin oral swab for thrush. Patient still critically ill; making slow gains. 12/11/17 Decrease Solu-Medrol to 62.5mg BID. TPN for nutritional support. Add Lantus to help glycemic control. Speech working with swallow - pt resistant with eating. 12/12/17 Significant improvement in mental status from yesterday - awake/alert and communicating well. Stop Solu-Medrol after tonight's last dose. O2 needs decreasing - weaned to NC at 5L. Continue TPN for nutritional support as oral drive decreased. Lantus HS. Continue PT/OT/Speech to maximize functional status. Diet being advanced per speech recommendations. 12/13/[address] with increase. O2 weaned to 3L. Blood sugars improving with increased Lantus and discontinued steroids. Continue with meropenem and clindamycin to cover aspiration and UTI. Transfer to medical floor to continue care. 12/14/17 Continues to make improvements. Oral intake increasing. O2 needs decreased - 1L with sats 92-96%. Continue with TPN. Oral intake increasing. Blood sugars improving - continue Lantus and SSI. Blood pressure showing elevation at times. Start Norvasc 2.5mg Daily (home Norvasc 10 and benazepril 40mg) Very weak and debilitated. Will need continued work with therapy to help recovery. 12/15/17 On room air this morning. CXR -- mild congestion noted though clinically pt is doing well. Discontinue antibiotics. Hgb trending back down; 8.0 today. Speech reevaluated patient today and diet was upgraded soft diet chopped meat and thin liquids. Continue small meals and supplemental snacks. TPN and Lantus were discontinued. Increase Norvasc to 5mg as BP showing increase. 12/16/17 Hgb 8.1. Continues on room air. BP increasing; renal function is stable. Will resume regular dosing of Norvasc but restart benazepril at 10 mg instead of 40 mg daily to prevent hypotension. Potassium has been stable since 12/13 and was 4.6 on day of discharge. Will hold home KDur. For pain control, Fentanyl patch 12 mcg was added. BGM have been variable. Will resume Lispro 3 units with meals but will decrease Lantus from 12 U at night to 5 U. Continue to check blood sugars and Dr. Torres may make further insulin adjustments. Pt medically stable for discharge for discharge to [facility]. Will repeat CBC and BMP in 3 days. F/U with Dr. Torres in 1 week. Time spent with patient: discharge greater than 30 minutes Resuscitation Status: Do Not Resuscitate Discharge Plan - Discharge Disposition Discharge Date: 12/16/17 Disposition: 03 To [facility] ([facility]) *Condition: Improved Reason For Visit (Visit label in EMR): Hypoxia; aspiration PNA; HCAP - Discharge Medications *Discharge Medications: New Benazepril [Lotensin] 10 mg PO DAILY #30 tab Fentanyl [Duragesic] 12 mcg TD Q3D #6 patch.td72 Albuterol/Ipratropium [Duoneb] 3 ml AEROSOL Q4H PRN each PRN Reason: Shortness Of Air/Wheezing Pantoprazole Sodium [Protonix] 1 tab PO ACB #60 tab Continue Cholestyramine (with Sugar) [Cholestyramine Packet] 1 pack PO Q4H PRN PRN Reason: Diarrhea Guaifenesin/Dextromethorphan [Diabetic Tussin Dm Max-Str Liq] 10 ml PO Q4H PRN PRN Reason: Cough Acetaminophen 650 mg PO Q6H PRN PRN Reason: Pain Atorvastatin [Lipitor] 20 mg PO 1700 PrednisoLONE EYE DROPS [Pred Mild] 1 drop RIGHT EYE DAILY Loratadine Odt [Claritin Redi-Tab] 10 mg PO DAILY Duloxetine [Cymbalta] 90 mg PO DAILY Ropinirole [Requip] 0.5 mg PO BID Amlodipine [Norvasc] 10 mg PO DAILY Gabapentin [Neurontin] 300 mg PO QID Magnesium Oxide [Magnesium] 400 mg PO DAILY Ascorbate Calcium [Vitamin C] 500 mg PO DAILY Loperamide [Imodium] 2 mg PO QID PRN PRN Reason: Diarrhea Hydrocodone/APAP 7.5/325 [[place] 7.5/325] 0.5 tab PO 5XD #20 tab Insulin Aspart [NovoLOG] 3 unit SQ TIDWM Docusate Sodium [Colace] 100 mg PO DAILY Ferrous Sulfate 325 mg PO DAILY Changed Insulin Glargine,Hum.rec.anlog [Lantus Solostar] 5 unit SQ HS #0 Discontinued Hydrocodone/APAP 7.5/325 [[place] 7.5/325] 1 tab PO Q6H PRN PRN Reason: Pain Potassium Chloride 20 meq PO DAILY Benazepril [Lotensin] 40 mg PO DAILY - Discharge Packet/Instructions *Diet: Regular diet, chopped foods, soft consistency, 6 small meals per day. *Activity: PT/OT evaluations. *Pain Management/Treatment: [place], Fentanyl patch, and Tylenol per medication list. *Wound Care: N/A Additional Instructions: Recheck BMP and CBC in 3 days. May need to resume potassium supplementation. Check blood sugars fasting and 2 hours after meals. *Expected Signs/Symptoms: Fatigue/weakness should improve. *Notify Physician if: Difficulty breathing, chest pain, fever, vomiting, diarrhea, blood in your stools, uncontrolled pain, stroke-like symptoms, or any new concerns. *During Business Hours Contact: Dr. Torres's office. *After Business Hours Contact: The on-call provider for Dr. Torres. *Pending Lab/Results: No Pending Lab Outpatient Orders: BMP - Basic Metabolic - [facility] Time Frame: 3 Days, Location: None Selected CBC w Auto [id number] Time Frame: 3 Days, Location: None Selected - Referrals/Follow Up *Referrals/Follow Up: Lalo Torres MD [Primary Care Provider] - 1 Week - Patient Handouts Patient Handouts: Aspiration Pneumonia (GEN) - Dismissal Complete Discharge Instructions are:: Complete Physician Narrative - Narrative Physician: Maggie Malone MD Attestation Narrative: Date: 12/16/17 Time: 3 PM-I examined the patient independently. I reviewed this chart, the patient history, and the [employer]'s/PA's documented findings as above. We discussed and formulated the assessment and plan as above with the additions below.-Dr. Malone Patient was hospitalized 11 days ago with aspiration pneumonia, acute hypoxic respiratory failure and frequent nausea and vomiting and upper GI bleed. Regarding upper GI bleed, she initially had nonbloody emesis and then developed hematemesis and melanotic appearing stools. She was started on IV antibiotics for pneumonia and Vapotherm for respiratory failure. Dr. Flores was consulted regarding upper GI bleed, but respiratory status was too tenuous to undergo EGD. She received 1 unit of blood 12/06/2017. She has not required any further transfusions. Hemoglobin and has been fairly stable in the 8 range since transfusion. Most likely, her GI bleed was secondary to Sachi-Corrigan tear. I did discuss the options with her and her family today, including her . We discussed continuing medical management with Protonix orally for 2 months, monitoring hemoglobin and blood pressure at the detention and if developing signs or symptoms of worsening anemia or GI bleed, could undergo EGD at that time versus scheduling an EGD to help determine source of bleed. We discussed the risks and benefits of both options. She and her decided for medical management and she does not want to undergo EGD at this time, which I think is a quite reasonable choice. Regarding aspiration pneumonia, the patient has finished a course of clindamycin and meropenem and we will not require any further antibiotics at discharge. Regarding UTI with Escherichia coli, she has finished her antibiotic course. Regarding diabetes, we will continue her NovoLog 3 units with meals. We will decrease her home Lantus to 5 units instead of 12 units. Her states that she was having occasional hypoglycemia at the detention. Will monitor blood sugars closely and have the nurses call Dr. Torres if blood sugars are less than 70 or greater than 300. Regarding chronic pain, Duragesic patch 12 mg was started approximately one week ago in addition to [place] 7.5 one half tab 5 times a day. She seems to be tolerating this well. We'll need to monitor for oversedation. Her when necessary [place] was discontinued. Regarding hypertension, she will take Norvasc 10 mg once daily and her benazepril will be restarted at 10 mg daily instead of 40 mg daily. Her blood pressure medication may need adjustment at the detention. At the detention she was on potassium 20 mEq by mouth daily. That was not given during the hospital course. She was receiving TPN and until 2 days ago. Her current potassium level is 4.6. We will not restart potassium at discharge, but if potassium is trending down when rechecked in 3 days, this may need to be resumed and monitored. We'll check a CBC and basic metabolic profile in 3 days. On the day of discharge, the patient is feeling quite well. Lungs are clear on exam. Cardiovascular reveals a regular rate and rhythm. Abdomen is soft and nontender. Extremities are free of edema. She has urinated after removal of Caro catheter. PICC line was removed. She appears stable for dismissal back to the detention. Will notify Dr. Torres of hospital findings and discharge plans.
[2017-12-16] MEDS: INSULIN ASPART 100unit/ml INJECTION SQ PRN (12:44)
--- NOTE | 2017-12-16 13:21 | Extended Care Facility Orders ---
<Michelle Harley - Last Filed: 12/16/17 13:18> Admission Orders Admit to:: Long Term Allergies/Adverse Reactions: Allergies meperidine Allergy (Intermediate, Verified 12/05/17 18:26) HIVES Penicillins Allergy (Intermediate, Verified 12/05/17 18:26) HIVES tetracycline Adverse Reaction (Mild, Verified 12/05/17 18:26) STOMACH Admitting Diagnosis: Hypoxia; aspiration PNA; HCAP Admitting Physician: Maggie Malone MD Attending Physician: Maggie Malone MD Code Status: Do Not Resuscitate Anticiapted Length of Stay: 30 days or less Rehab Potential: fair Rehab Prognosis: fair Diet: Regular Diet Fluid Consistency: Regular Food Consistency: Soft Other Diet Modifiers: 6 small meals Comment: chopped all foods, continue small meals May use Facility Protocol or Standing Orders: Yes May have flu vaccine: Yes Evaluations/Treatment: Speech, PT, OT, as needed Long Term Certification: I certify that SNF services are required to be given on an inpatient basis because of the patient's need for fpc care on a continuing basis for the condition(s) for which she received inpatient hospital services prior to her transfer to the SNF. SNF inpatient care is necessary for the following reasons: Indication for Long Term: Not Applicable - Additional Information In Event of Arrest: Do Not Start CPR Resident is Aware of Diagnosis: Yes Laboratory/Radiology: Check BMP and CBC in 3 days and fax results to Dr. Torres. Referrals: Lalo Torres MD [Primary Care Provider] - 1 Week Additional Orders: Monitor for urine retention. Patient had a catheter during hospitalization. <Maggie Malone - Last Filed: 12/16/17 14:46> Admission Orders Admitting Diagnosis: Hypoxia; aspiration PNA; HCAP Admitting Physician: Maggie Malone MD Attending Physician: Maggie Malone MD Code Status: Do Not Resuscitate Diet: 12/12/17 Dinner Regular Diet [DIET] Diet Modifications: Fluid Consistency: REGLIQU Food Consistency: SOFT Other Diet Modifiers: [id number] Comment: chopped all foods, continue small meals Long Term Certification: I certify that SNF services are required to be given on an inpatient basis because of the patient's need for fpc care on a continuing basis for the condition(s) for which he/she received inpatient hospital services prior to his/her transfer to the SNF. SNF inpatient care is necessary for the following reasons: Indication for Long Term: Diabetic Assessment, Med Admininistration, Teach Medication Management, Other (monitor blood pressure with change in medication) - Additional Information Laboratory/Radiology: check blood sugars fasting and 2 hours post prandial. Call for bgm less than 70 or greater than 300.
[2017-12-16 13:41] VITALS: PULSE 91
== END 2017-12-16 15:45 | DRG 177 ==
LOC: ED 18:08 → EDHOLD 21:32 → SUATTDRO 21:32 → EDHOLD 21:38 → CCU 21:55 → MED 12-13 11:50
PROVIDERS: ADMIT Emergency Medicine; ATTEND Internal Medicine